=== PATIENT | male | born 1965 | race Caucasian/White ===

== ENCOUNTER 2023-05-21 18:48 | Inpatient (IN) | payer MEDICARE, SELFPAY ==
[2023-05-21] VITALS (18 sets, daily range): BP systolic 65–123; BP diastolic 40–84; BMI 43.0
[2023-05-21 14:43] LABS: Hematocrit 44.3 % (39.0-52.0); Hemoglobin 15.3 g/dL (13.0-18.0); Mean Corp Hgb Conc. 34.5 g/dL (33.0-37.0); Mean Corpuscular Hgb 30.3 pg (27.0-31.0); Mean Corpuscular Volume 87.7 fL (80.0-94.0); Mean Platelet Volume 10.1 fL (7.4-10.4); Platelet Count 283 10^3/uL (130-400); Red Blood Cell Count 5.05 10^6/uL (4.70-6.10); Red Cell Dist. Width 14.1 % (11.5-14.5); White Blood Cell Count 13.9 10^3/uL (4.8-10.8)
[2023-05-21 15:14] LABS: ALT (SGPT) 34 U/L (0-50); AST (SGOT) 30 U/L (17-59); Albumin 4.5 g/dl (3.5-5.0); Alkaline Phosphatase 69 U/L (38-126); Blood Urea Nitrogen 44 mg/dl (9-20); Calcium 9.9 mg/dl (8.4-10.2); Carbon Dioxide 17 mmol/L (22-30); Chloride 106 mmol/L (98-107); Glucose 128 mg/dl (70-99); Lipase 56 U/L (23-300); Potassium 4.8 mmol/L (3.5-5.1); Sodium 136 mmol/L (135-145); Total Bilirubin 1.4 mg/dl (0.2-1.3); Total Protein 7.4 g/dl (6.3-8.2); eGFR 11.14
[2023-05-21 15:20] LABS: Absolute Neutrophils -Man Diff 10.5 10^3/uL (1.4-6.5); Band Neutrophils 11 % (0-3); Lymphocytes 12 % (20-51); Monocytes 9 % (2-9); Segmented Neutrophils 65 % (42-75)
[2023-05-21 15:21] LABS: Atypical Lymphocytes 3 %; Normal RBC Morphology Yes; Platelets Checked Yes; Total Cells Counted 100
--- NOTE | 2023-05-21 15:57 | ED.GENMED ---
History of Present Illness
<Adrian Mcleod PA-C - Last Filed: 05/22/23 08:19>
General
Chief Complaint: Visual Problem
Source: patient and family
Time Seen by Provider: 05/21/23 15:48
Travel History
Have you had any contact with someone who has COVID-19?: No
Do you have any symptoms of coronavirus? Fever > 100 degrees, chills, cough, shortness of breath, sore throat, loss of taste or smell, muscle aches, or headache?: No
History of Present Illness
History of Present Illness:
58-year-old male with past medical history of hypertension, bipolar disorder and schizophrenia presenting to the emergency department with family after patient has had persistent nausea, vomiting and diarrhea that started around 2 days ago, notes
that symptoms actually seem to be a little bit improved today although is feeling generally weak, feels as if he has to think more prior to performing a task, feels intermittently confused. Patient also notes that when attempting to get up to go to
the bathroom he feels near syncopal but states never at had syncope or loss conscious. Patient denies any fevers, chills, rigors, urinary symptoms, known sick contacts, recent travel or recent antibiotics. Currently denying any abdominal pain as
well. No other concerns at this time
Past History
<Adrian Mcleod PA-C - Last Filed: 05/22/23 08:19>
Past History
ED Past Medical History: HTN and Psychiatric
ED Past Surgical History: Orthopedic (Bilateral knee replacement) and Other (Inguinal herniorrhaphy)
Social History
Tobacco: Former smoker
Alcohol: None
Drug: None
Personal:
Living: alone
Employment: Disabled
Family History
Family History: Other (Noncontributory)
Review of Systems
<Adrian Mcleod PA-C - Last Filed: 05/22/23 08:19>
Review of Systems
All Other Systems: ROS reviewed and negative except as documented in HPI and ROS
Phy Exam
<Adrian Mcleod PA-C - Last Filed: 05/22/23 08:19>
Physical Exam
Physical Exam:
GENERAL: Alert , in no apparent distress
EYE: clear conjunctiva b/l
HEAD: NCAT
ENT: o/p clr, mmm.
CARDIAC: Regular rate and rhythm .
LUNGS: Clear breath sounds bilaterally, mild tachypnea, no wheezes/rales/rhonchi
ABDOMEN: Soft, without focal tenderness, no r/g, no cvat
NEUROLOGICAL: Alert and oriented
SKIN: Warm and dry, skin intact.
MUSCULOSKELETAL: No edema, well perfused.
PSYCH: Normal and appropriate interaction.
Scores
<Adrian Mcleod PA-C - Last Filed: 05/22/23 08:19>
Heart Failure Risk
Heart Failure Risk Score: Not Applicable
Heart Score for Chest Pain Patients
STEMI patient?: Not applicable
Withdrawal Assessment of Alcohol
Withdrawal Assessment Completed?: Not applicable
Course
<Adrian Mcleod PA-C - Last Filed: 05/22/23 08:19>
Orders/Labs/Results
Orders:
Orders
05/21/23 Lunch
Clear Liquid
At Your Request: Full Participation
Does patient need a safe tray?: No
05/21/23 14:27
IV Insert/Care/Rem.- Treatment PRN
05/21/23 14:28
ECG [Electrocardiogram (*1)] Urgent
Reason for Study: Vertigo / Dizzy
EKG- Treatment ONCE
05/21/23 14:36
Complete Blood Count/With Diff Urgent
Comprehensive Metabolic Panel Urgent
Lipase Urgent
Manual Differential Urgent
05/21/23 15:48
0.9% Sodium Chloride 1000 ml [Nss] 1,000 ml IV BOLUS
05/21/23 15:49
CT Abd/pel Without Iv Or Oral Urgent
Comment:
Reason For Exam: vomiting, ROSE MARIE
Urinalysis Reflex To Culture Urgent
Date Specimen was Collected: 05/22/23
Time Specimen was Collected: 03:00
05/21/23 16:11
Lactic Acid Q4H
Comment: CANCEL 2nd LACTIC ACID IF 1st LACTIC ACID IS LESS THAN 2
Blood Culture Q30M
BETI Source: Blood/Venous
Specimen Description:
05/21/23 16:19
Blood Culture Q30M
BETI Source: Blood/Venous
Specimen Description:
05/21/23 17:45
Ondansetron Injectable [Zofran] 4 mg .ROUTE .[facility]
05/21/23 18:17
Admit/Transfer Patient As Directed
Co-Sign Provider:
Level of Care: Inpatient admission
Assign to:: Medical/Surgical
Physician / Group: Carolina pastranaists
Diagnosis: ROSE MARIE
Reason for Hospitalization: ROSE MARIE - IVF
Expected length of stay greater than two midnights?: Yes
ELOS- Estimated Length of Stay in days: 3
I certify the patient meets the requirements for IP care: Yes
05/21/23 18:18
Code Status As Directed
Resuscitation Status: Full Code
05/21/23 18:22
Urine Creatinine Routine
Date Specimen was Collected: 05/22/23
Time Specimen was Collected: 03:01
Urine Sodium Routine
Date Specimen was Collected: 05/22/23
Time Specimen was Collected: 03:01
05/21/23 19:21
Acetaminophen [Tylenol] 650 mg PO Q4HPRN PRN
Dextrose 50%-Water [Dextrose 50% Syringe] 12.5 grams IV [id number] PRN
Glucagon [GlucaGen] 1 mg IM PRN PRN
HydrALAZINE [Apresoline] 5 mg IV Q6HPRN PRN
Ondansetron Injectable [Zofran] 4 mg IV Q6HPRN PRN
Sterile Water For Inj [Sterile Water For Injection 1000 ml] 1,000 ml Sodium Bicarbonate 150 meq IV 100 mls/hr
Trihexyphenidyl [Artane] 5 mg PO BIDPRN PRN
05/21/23 19:21
Activity As Directed
Activity Level: As Tolerated
Bedside Glucose Monitoring As Directed
Frequency: AC&HS
Comment: Change to q6h if pt on TPN, tube feeding or not eating
Bladder Scan As Directed
Follow Bladder Retention/Intermittent Cath Algorithm?: Yes
PRN if no void in __ hours: 6
Frequency: Per Retention Algorithm
If Bladder Scan Result >: 400
then:: Straight cath
Pneumatic Compression Sleeves As Directed
Type: Knee high
Straight Cath As Directed
Frequency: Per Retention Algorithm
Additional Instructions: straight cath as needed per acute urinary retention algorithm for 24 hrs
Additional Instructions: for bladder scan greater than 400 mL
Vital Signs As Directed
Frequency: Per unit guidelines
DX Deep Vein Thrombosis Video Routine
05/21/23 19:59
STOOL [C difficile Antigen & Toxins] Routine
BETI Source: Feces/Stool
Specimen Description:
Date Specimen was Collected: 05/21/23
Time Specimen was Collected: 19:58
Stool Culture Routine
BETI Source: Feces/Stool
Specimen Description:
Date Specimen was Collected: 05/21/23
Time Specimen was Collected: 19:58
Stool For WBC Routine
BETI Source: Feces/Stool
Specimen Description:
Date Specimen was Collected: 05/21/23
Time Specimen was Collected: 19:58
05/21/23 20:00
Perphenazine [Trilafon] 16 mg PO BID
05/21/23 21:31
BMP [Basic Metabolic Panel] Routine
05/22/23 04:10
Basic Metabolic Panel IN AM
Complete Blood Count/No Diff IN AM
Glycohemoglobin (HgbA1c) IN AM
Magnesium IN AM
05/22/23 07:30
Insulin Aspart Corrective Low [Novolog Flexpen-Low Resistance] See Protocol SC AC
05/22/23 08:00
Ascorbic Acid [Vitamin C] 500 mg PO DAILY
Atorvastatin [Lipitor] 10 mg PO DAILY
HydrOXYZINE [Atarax] 25 mg PO DAILY
Multivitamin [Theragran] 1 tablet PO DAILY
05/23/23 06:00
Basic Metabolic Panel IN AM
Complete Blood Count/No Diff IN AM
05/24/23 06:00
Basic Metabolic Panel IN AM
Complete Blood Count/No Diff IN AM
05/25/23 06:00
Basic Metabolic Panel IN AM
Complete Blood Count/No Diff IN AM
05/25/23 08:00
Ergocalciferol [Drisdol (Vitamin D2)] 50,000 units PO TH
Abnormal Lab Results
05/21/23
14:36
WBC 13.9 H 10^3/uL
(4.8-10.8)
Abs Neuts (Manual) 10.5 H 10^3/uL
(1.4-6.5)
Band Neutrophils 11 H %
(0-3)
Lymphocytes (Manual) 12 L %
(20-51)
Carbon Dioxide 17 L mmol/L
(22-30)
BUN 44 H mg/dl
(9-20)
Creatinine 5.5 H* mg/dL
(0.7-1.3)
Glucose 128 H mg/dl
(70-99)
Total Bilirubin 1.4 H mg/dl
(0.2-1.3)
05/21/23 14:36
05/21/23 14:36
Vital Signs
Initial and Last Documented VS:
Initial Vital Signs
Temp Pulse Resp Pulse Ox
98 F 113 18 93
05/21/23 14:22 05/21/23 14:22 05/21/23 14:22 05/21/23 14:22
Last Documented Vital Signs
Temp Pulse Resp BP Pulse Ox
98.8 F 97 18 100/51 95
05/22/23 03:13 05/22/23 03:13 05/22/23 03:13 05/22/23 03:13 05/22/23 03:13
[employer]mw Sales Consultant consulted with Physician
[employer]mw Sales Consultant consulted with physician?: Yes
Name of Physician Consulted: Dax
<Madi Verduzco, DO - Last Filed: 05/21/23 16:51>
Orders/Labs/Results
Orders:
Orders
05/21/23 Lunch
Clear Liquid
At Your Request: Full Participation
Does patient need a safe tray?: No
05/21/23 14:27
IV Insert/Care/Rem.- Treatment PRN
05/21/23 14:28
ECG [Electrocardiogram (*1)] Urgent
Reason for Study: Vertigo / Dizzy
EKG- Treatment ONCE
05/21/23 14:36
Complete Blood Count/With Diff Urgent
Comprehensive Metabolic Panel Urgent
Lipase Urgent
Manual Differential Urgent
05/21/23 15:48
0.9% Sodium Chloride 1000 ml [Nss] 1,000 ml IV BOLUS
05/21/23 15:49
CT Abd/pel Without Iv Or Oral Urgent
Comment:
Reason For Exam: vomiting, ROSE MARIE
Urinalysis Reflex To Culture Urgent
Date Specimen was Collected: 05/22/23
Time Specimen was Collected: 03:00
05/21/23 16:11
Lactic Acid Q4H
Comment: CANCEL 2nd LACTIC ACID IF 1st LACTIC ACID IS LESS THAN 2
Blood Culture Q30M
BETI Source: Blood/Venous
Specimen Description:
05/21/23 16:19
Blood Culture Q30M
BETI Source: Blood/Venous
Specimen Description:
05/21/23 17:45
Ondansetron Injectable [Zofran] 4 mg .ROUTE .[facility]
05/21/23 18:17
Admit/Transfer Patient As Directed
Co-Sign Provider:
Level of Care: Inpatient admission
Assign to:: Medical/Surgical
Physician / Group: Carolina rojas
Diagnosis: ROSE MARIE
Reason for Hospitalization: ROSE MARIE - IVF
Expected length of stay greater than two midnights?: Yes
ELOS- Estimated Length of Stay in days: 3
I certify the patient meets the requirements for IP care: Yes
05/21/23 18:18
Code Status As Directed
Resuscitation Status: Full Code
05/21/23 18:22
Urine Creatinine Routine
Date Specimen was Collected: 05/22/23
Time Specimen was Collected: 03:01
Urine Sodium Routine
Date Specimen was Collected: 05/22/23
Time Specimen was Collected: 03:01
05/21/23 19:21
Acetaminophen [Tylenol] 650 mg PO Q4HPRN PRN
Dextrose 50%-Water [Dextrose 50% Syringe] 12.5 grams IV [id number] PRN
Glucagon [GlucaGen] 1 mg IM PRN PRN
HydrALAZINE [Apresoline] 5 mg IV Q6HPRN PRN
Ondansetron Injectable [Zofran] 4 mg IV Q6HPRN PRN
Sterile Water For Inj [Sterile Water For Injection 1000 ml] 1,000 ml Sodium Bicarbonate 150 meq IV 100 mls/hr
Trihexyphenidyl [Artane] 5 mg PO BIDPRN PRN
05/21/23 19:21
Activity As Directed
Activity Level: As Tolerated
Bedside Glucose Monitoring As Directed
Frequency: AC&HS
Comment: Change to q6h if pt on TPN, tube feeding or not eating
Bladder Scan As Directed
Follow Bladder Retention/Intermittent Cath Algorithm?: Yes
PRN if no void in __ hours: 6
Frequency: Per Retention Algorithm
If Bladder Scan Result >: 400
then:: Straight cath
Pneumatic Compression Sleeves As Directed
Type: Knee high
Straight Cath As Directed
Frequency: Per Retention Algorithm
Additional Instructions: straight cath as needed per acute urinary retention algorithm for 24 hrs
Additional Instructions: for bladder scan greater than 400 mL
Vital Signs As Directed
Frequency: Per unit guidelines
DX Deep Vein Thrombosis Video Routine
05/21/23 19:59
STOOL [C difficile Antigen & Toxins] Routine
BETI Source: Feces/Stool
Specimen Description:
Date Specimen was Collected: 05/21/23
Time Specimen was Collected: 19:58
Stool Culture Routine
BETI Source: Feces/Stool
Specimen Description:
Date Specimen was Collected: 05/21/23
Time Specimen was Collected: 19:58
Stool For WBC Routine
BETI Source: Feces/Stool
Specimen Description:
Date Specimen was Collected: 05/21/23
Time Specimen was Collected: 19:58
05/21/23 20:00
Perphenazine [Trilafon] 16 mg PO BID
05/21/23 21:31
BMP [Basic Metabolic Panel] Routine
05/22/23 04:10
Basic Metabolic Panel IN AM
Complete Blood Count/No Diff IN AM
Glycohemoglobin (HgbA1c) IN AM
Magnesium IN AM
05/22/23 07:30
Insulin Aspart Corrective Low [Novolog Flexpen-Low Resistance] See Protocol SC AC
05/22/23 08:00
Ascorbic Acid [Vitamin C] 500 mg PO DAILY
Atorvastatin [Lipitor] 10 mg PO DAILY
HydrOXYZINE [Atarax] 25 mg PO DAILY
Multivitamin [Theragran] 1 tablet PO DAILY
05/23/23 06:00
Basic Metabolic Panel IN AM
Complete Blood Count/No Diff IN AM
05/24/23 06:00
Basic Metabolic Panel IN AM
Complete Blood Count/No Diff IN AM
05/25/23 06:00
Basic Metabolic Panel IN AM
Complete Blood Count/No Diff IN AM
05/25/23 08:00
Ergocalciferol [Drisdol (Vitamin D2)] 50,000 units PO TH
Abnormal Lab Results
05/21/23
14:36
WBC 13.9 H 10^3/uL
(4.8-10.8)
Abs Neuts (Manual) 10.5 H 10^3/uL
(1.4-6.5)
Band Neutrophils 11 H %
(0-3)
Lymphocytes (Manual) 12 L %
(20-51)
Carbon Dioxide 17 L mmol/L
(22-30)
BUN 44 H mg/dl
(9-20)
Creatinine 5.5 H* mg/dL
(0.7-1.3)
Glucose 128 H mg/dl
(70-99)
Total Bilirubin 1.4 H mg/dl
(0.2-1.3)
05/21/23 14:36
05/21/23 14:36
Vital Signs
Initial and Last Documented VS:
Initial Vital Signs
Temp Pulse Resp Pulse Ox
98 F 113 18 93
05/21/23 14:22 05/21/23 14:22 05/21/23 14:22 05/21/23 14:22
Last Documented Vital Signs
Temp Pulse Resp BP Pulse Ox
98.8 F 97 18 100/51 95
05/22/23 03:13 05/22/23 03:13 05/22/23 03:13 05/22/23 03:13 05/22/23 03:13
<Adrian Mcleod PA-C - Last Filed: 05/22/23 08:19>
MDM/Problems Addressed
Differential Diagnosis Includes:
Gastroenteritis, colitis, electrolyte disturbance, acute kidney injury
MDM/Problems Addressed:
58-year-old male present emergency department for evaluation of nausea vomiting and diarrhea. Symptoms are noted to be a little bit improved today. Lab work was initiated in triage which reveals a leukocytosis, bandemia, uremia with a new
creatinine of greater than 5. Patient's labs show that he had a normal creatinine in August 2022. I suspect this is likely all prerenal from dehydration. Patient is on daily lisinopril which will likely need to be stopped. Patient will require
admission. I added on a CT scan of the abdomen pelvis without any contrast. Lactate and blood cultures ordered as well. Will hold on antibiotics at this time. Patient is agreeable with this plan. Will notify nephrology.
<Adrian Mcleod PA-C - Last Filed: 05/22/23 08:19>
*Radiology
Radiology exam reviewed: radiology read reviewed
*Pulse Oximetry
Patient hypoxic: no
*EKG
Interpreted by ED Provider?: Yes
Comparison EKG: no changes
Heart Rate: 104
Rate: tachycardiac
Rhythm: sinus
[place]: normal axis
Ischemia: no ischemia
*Race Car Driver Interpretation
Rate: tachycardiac
Rhythm: sinus
*Critical Care Note
Total Time (30-74mins, 75-104mins- exclusive of procedures): Not Applicable
Data Reviewed
Review of Other/Old Records Reveals: Labs
<Adrian Mcleod PA-C - Last Filed: 05/22/23 08:19>
Patient Management
Discussion with other providers: Hospitalist
Escalation/DeEscalation of care consider admission/obs:
Patient has significant uremia. Hospitalist team is aware. Nephrology to be consulted. Patient's initial hypotension is significantly improving following fluid boluses.
ED Attending Note
<Adrian Mcleod PA-C - Last Filed: 05/22/23 08:19>
-
Portions of this chart may have been created with voice recognition software.� Occasional wrong word or��sound alike� substitutions may have occurred due to the inherent limitations of voice recognition software.
<Madi Verduzco DO - Last Filed: 05/21/23 16:51>
ED Attending Note
Patient seen and examined by attending physician: Yes
ED Attending Note:
I have reviewed and agree with history treatment plan by Lizandro Mcleod. Is a 58-year-old male with nausea vomiting diarrhea, acute renal failure, hypokalemia. Blood pressure improved with IV normal saline. CT abdomen pelvis pending. Will admit to
hospitalist.
Discharge Plan
Departure
Patient Disposition: Admit
Date of Disposition: 05/21/23
Time of Disposition: 17:01
Presentation/result/management discussed w/ accepting MD/DO: Hospitalist
Discharge Problem:
Acute renal failure, Dehydration, Near syncope
Interventions
Interventions:
*Risk Screen - Suicide Last Done: 05/21/23 14:22
*General Assessment Last Done: 05/21/23 14:22
*Neglect/Abuse Screening Last Done: 05/21/23 14:22
ED- Fall Risk Assessment Last Done: 05/21/23 17:35
*ED COVID-19 Vaccine History Last Done: 05/21/23 16:02
*Nursing Disposition Last Done: 05/21/23 21:50
ED- Neurological Assessment Last Done: 05/21/23 19:10
ED-EENT Assessment Last Done: 05/21/23 16:05
ED Swallowing Screen Last Done: 05/21/23 16:05
Discharge Date and Time
Discharge Date/Time: 05/21/23 21:50
--- NOTE | 2023-05-21 16:16 | EDRN ---
Pt was noted to be hypotensive, states he has all over body pain that is starting now. MD called to bedside, NS infusing per order.
[2023-05-21] MEDS: NSS 1000 IV (16:17)
[2023-05-21 16:31] LABS: Lactic Acid 1.7 mmol/L (0.7-2.0)
--- NOTE | 2023-05-21 17:57 | HPS.HSE ---
Family Physician
-
Family Physician: Preeti Markham
Chief Complaint
-
abd pain/n/v
History of Present Illness
58 y/o M hx of HTN, DM, bipolar, schizophrenia presents to ER for 2 day history of GI upset. Patient reports 2 days ago he developed nausea, and vomiting. Also developed diarrhea, 4 episodes on day and 2, 1 today. no abd pain. no fever/chills. no
sick contacts or spoiled food was eaten. No chest pain or SOB. no UTI symptoms although he thinks he had some blood in urine.
He feels a bit better today but reports feeling a bit foggy with tasks and today while attempting to get out of bed, with near syncope.
in ER, CT showed fluid attenuation in colon suggesting diarrheal illness. also with profound ROSE MARIE - IVF started. Admitted.
Medical History
Past Medical History
Past Medical History: Reports Other (HTN, DM, bipolar, schizophrenia )
Past Surgical History: Reports Orthopedic (bilateral knee replacements) and Other (R inguinal hernia repair)
Social History
Tobacco: Former Smoker
Alcohol: None
Drug: None
Personal:
Living: Alone
Employment: Disabled
Family History
Family History: Not pertinent
Allergies / Home Medications
Allergies reflects when Allergies were last updated in [employer] [facility].
Home Medications with original date entered in [employer] [facility]
Allergy/Medication List:
Allergies
Allergy/AdvReac Type Severity Reaction Status Date / Time
No Known Allergies Allergy Verified 05/21/23 14:22
Home Medications
ascorbic acid (vitamin C) 500 mg tablet (Vitamin C) 500 mg PO DAILY Supplement 08/31/22
atorvastatin 10 mg tablet 10 mg PO DAILY High Cholesterol 08/31/22
ergocalciferol (vitamin D2) 1,250 mcg (50,000 unit) capsule 1,250 mcg PO TH Supplement 08/31/22
hydroxyzine pamoate 25 mg capsule 25 mg PO DAILY anxiety 08/31/22
metformin 500 mg tablet 500 mg PO BID@0800,1700 Diabetes 08/31/22
multivitamin 1 tab PO DAILY Supplement 08/31/22
perphenazine 8 mg tablet 16 mg PO BID distress 08/31/22
semaglutide 0.25 mg or 0.5 mg (2 mg/3 mL) subcutaneous pen injector (Ozempic) 0.25 mg SC FR Diabetes 08/31/22
trihexyphenidyl 5 mg tablet 5 mg PO BIDPRN PRN restlessness 08/31/22
lisinopril 30 mg tablet 30 mg PO DAILY 05/21/23
Review of Systems
-
A 12 point ROS was completed and negative except as noted: Yes
Physical Exam
Vital Signs
Vital Signs
Temp Pulse Resp BP Pulse Ox
98 F 112 25 123/80 97
05/21/23 14:22 05/21/23 17:45 05/21/23 17:45 05/21/23 17:45 05/21/23 17:30
Physical Exam
General: Well Developed, Well Nourished, No Apparent Distress and Morbidly Obese
HEENT: NormoCephalic and Anicteric; No Moist mucous membranes (dry)
Respiratory: Clear and Clear to Percussion; No Wheezes, Rales or Rhonchi
Cardiac: S1/S2 and Regular Rhythm
GI: Soft, Non Tender and Non Distended
Neuro: AO x 3
Hematologic/Lymphatic: No Lymphadenopathy
Psych: Calm
Laboratory Results
-
05/21/23 14:36
05/21/23 14:36
Laboratory Results
Lactic Acid 1.7 mmol/L (0.7-2.0) 05/21/23 16:11
Total Bilirubin 1.4 mg/dl (0.2-1.3) H 05/21/23 14:36
AST 30 U/L (17-59) 05/21/23 14:36
ALT 34 U/L (0-50) 05/21/23 14:36
Alkaline Phosphatase 69 U/L (38-126) 05/21/23 14:36
Lipase 56 U/L (23-300) 05/21/23 14:36
Data Reviewed
-
Lab Data: Labs Reviewed by me and Discussed with Patient
Impression/Plan
-
Assessment:
Acute diarrheal illness with nausea/vomiting
- likely viral, as patients diarrhea is less frequent, and he is hungry; will start clears
- obtain stool studies
- no evidence of obstruction on CT
ROSE MARIE, from GI losses/dehydration
- check Urine sodium/Urine creat
- bladder scans
- hold nephrotoxins
- continue IVF/Bicarbonate; repeat labs this evening
Self-reported hematuria
- CT negative
- await UA
Essential HTN
- hold WILDA with ROSE MRAIE
- prn Hydralazine
type 2 DM
- hold MFM with ROSE MARIE
- SSI and check A1c
- of note; patient is not on Ozempic despite it being listed in home list.
Bipolar d/o
Schizophrenia
- continue Hydroxyzine
- continue perphenazine
- continue prn trihexyphenidyl
DVT ppx: SCDs until hematuria clarified
Code: Full
--- NOTE | 2023-05-21 19:27 | EDRN ---
called pharmacy for 2000 medication and IVF with [facility]
[2023-05-21] MEDS: SODIUM BICARBONATE 1150 MEQ IV (20:14)
[2023-05-21 21:51] LABS: Blood Urea Nitrogen 45 mg/dl (9-20); Calcium 8.7 mg/dl (8.4-10.2); Carbon Dioxide 16 mmol/L (22-30); Chloride 109 mmol/L (98-107); Estimated Creatinine Clearance 23 ml/min; Glucose 118 mg/dl (70-99); Sodium 133 mmol/L (135-145); eGFR 13.45
[2023-05-21] MEDS: TRILAFON 16 MG PO (22:20)
[2023-05-22 03:13] VITALS: BP 100/51
[2023-05-22 03:34] LABS: Urine Albumin Negative (Neg - Trace); Urine Bilirubin 1+ (Negative); Urine Character Clear (Clear); Urine Color Yellow; Urine Glucose Negative (Negative); Urine Ketone Negative (Negative); Urine Leukocyte Negative (Negative); Urine Nitrite Negative (Negative); Urine Occult Blood Negative (Negative); Urine Specific Gravity 1.025 (<1.030); Urine Urobilinogen Negative (Neg - 1+)
[2023-05-22 03:39] LABS: Urine Sodium 46 mmol/L (30-90)
[2023-05-22 05:07] LABS: Hematocrit 37.7 % (39.0-52.0); Mean Corp Hgb Conc. 34.5 g/dL (33.0-37.0); Mean Corpuscular Volume 87.1 fL (80.0-94.0); Mean Platelet Volume 10.3 fL (7.4-10.4); Platelet Count 232 10^3/uL (130-400); Red Blood Cell Count 4.33 10^6/uL (4.70-6.10); Red Cell Dist. Width 14.1 % (11.5-14.5); White Blood Cell Count 10.7 10^3/uL (4.8-10.8)
[2023-05-22 05:43] LABS: Blood Urea Nitrogen 43 mg/dl (9-20); Calcium 8.9 mg/dl (8.4-10.2); Carbon Dioxide 17 mmol/L (22-30); Chloride 107 mmol/L (98-107); Estimated Creatinine Clearance 35 ml/min; Glucose 109 mg/dl (70-99); Magnesium 1.8 mg/dl (1.6-2.3); Potassium 4.1 mmol/L (3.5-5.1); Sodium 133 mmol/L (135-145); eGFR 23.06
[2023-05-22 05:46] VITALS: BMI 43.0
[2023-05-22 07:20] VITALS: BP 121/70
[2023-05-22] MEDS: SODIUM BICARBONATE 1150 MEQ IV (07:30)
--- NOTE | 2023-05-22 08:21 | W.PN.HOSP.TC ---
Today's Communication/Plan
-
check for Norovirus
adjust IVF
clears
await stool studies
Assessment / Plan
Assessment / Plan
Acute diarrheal illness with nausea/vomiting
- likely viral, as patients diarrhea is less frequent, and he is hungry; tolerating clears, will plan to advance diet as diarrhea slows
- obtain stool studies - pending, will also check for Noro vir 13.9-->10.7kus
WBC 13.9-->10.7k
- no evidence of obstruction on CT: Fluid attenuation throughout the colon suggesting a diarrheal illness. Colonic diverticulosis, without evidence for acute diverticulitis. No bowel wall thickening, obstruction, or inflammation. Normal appendix.
No extraluminal free air, fluid collection, or ascites.
ROSE MARIE, from GI losses/dehydration
- BUN/Creat 44/5.5-->45/4.7-->43/3.0
- bladder scans
- hold nephrotoxins
- continue IVF/Bicarbonate; CO2 17-->16-->17, will change to NS when current liter completed
Self-reported hematuria
- CT negative
- no blood in UA
Essential HTN
87/51-->100/51
- hold WILDA with ROSE MARIE
- prn Hydralazine
type 2 DM
- hold MFM with ROSE MARIE
- SSI and check A1c - pending
- of note; patient is not on Ozempic despite it being listed in home list.
Bipolar d/o
Schizophrenia
- continue Hydroxyzine
- continue perphenazine
- continue prn trihexyphenidyl
DVT ppx: SCDs until hematuria clarified
Code: Full
Anticipated Discharge: > 48 hours
Subjective/Interval History
-
Date of Service: May 22, 2023
Awake, alert, diarrhea slightly less loose this morning, but already had 2 episodes this morning
Objective Data
-
Labs:
Laboratory Results
05/21/23 05/22/23
21:31 04:10
WBC 10.7
Hgb 13.0
Hct 37.7 L
Plt Count 232
Sodium 133 L 133 L
Potassium 4.1
Chloride 109 H 107
Carbon Dioxide 16 L 17 L
BUN 45 H 43 H
Creatinine 4.7 H* 3.0 H
Glucose 118 H 109 H
Calcium 8.7 8.9
Vital Signs:
Vital Signs
Temp Pulse Resp BP Pulse Ox
98.8 F 97 18 100/51 95
05/22/23 03:13 05/22/23 03:13 05/22/23 03:13 05/22/23 03:13 05/22/23 03:13
I&O
05/21/23 05/22/23 05/23/23
06:59 06:59 06:59
Intake Total 380 / 380
Output Total 300 / 300
Balance 80 / 80
Review of Systems
-
History Source: Patient and Coordinated Provider (pt examined with HARLEEN Hicks in room)
Constitutional: Denies Fever
EENT: Reports No Symptoms Reported
Respiratory: Reports No Symptoms
Cardiac: Reports No Symptoms
Abdomen/GI: Reports Diarrhea; Denies Nausea, Vomiting, Bloody Stools or Black Stools
Genitourinary: Reports No Symptoms
Musculoskeletal: Reports No Symptoms
Neuro: Reports No Symptoms
Physical Exam
-
General: Well Developed, Well Nourished and No Apparent Distress
HEENT: Normocephalic, Atraumatic and Moist Mucous Membranes
Respiratory: Clear to Auscultation; Negative Wheezes, Rales or Rhonchi
Cardiac: Regular Rhythm and S1/S2
GI: Soft, Nontender, Nondistended, Normal Bowel Sounds and Other (large girth)
Musculoskeletal: No Clubbing, No Cyanosis and No Edema
Neuro: Awake, Alert and Oriented
[2023-05-22 08:31] LABS: Glucose - Point of Care 124 mg/dl (70-99)
[2023-05-22 08:46] LABS: Glycohemoglobin (HgbA1c) 7.3 % (4.0-5.6)
[2023-05-22] MEDS: ATARAX 25 MG PO (08:57)
[2023-05-22] MEDS: THERAGRAN 1 TABLET PO (08:57)
[2023-05-22] MEDS: LIPITOR 10 MG PO (08:57)
[2023-05-22] MEDS: TRILAFON 16 MG PO ×2 (08:57→21:00)
[2023-05-22] MEDS: VITAMIN C 500 MG PO (08:57)
--- NOTE | 2023-05-22 10:44 | CM ---
Reviewed the chart notes and spoke with the patient at the beside. The patient resides alone in a second floor apartment with his two cats. There is one step to enter and a flight of stairs to apartment. The patient's [id number] is currently
caring for the cats while the patient is in the hospital. The patient reports no DME/VN/SNF in the past. The patient reports being current with [facility]. The patient confirmed his pharmacy of choice is the [facility]. continues to be available to patient/family and is monitoring medical plan for needs at discharge.
Plan: Discharge to home when medically stable. No additional needs identified at this time.
[2023-05-22 11:00] VITALS: BP 142/80
[2023-05-22 11:43] LABS: Glucose - Point of Care 103 mg/dl (70-99)
--- NOTE | 2023-05-22 13:02 | PTCARENOTE ---
per morning conversation with Dr. Irizarry. Verbal order for Low residue diet to start when patient has tolerated clears. Patient tolerated breakfast and lunch on clear liquid diet. Verbal order placed for low residue diet to start at dinner 1500
(next meal). Dr. Irizarry notified [id number] via tiger text.
[2023-05-22 15:00] VITALS: BP 137/71
[2023-05-22] MEDS: TYLENOL 650 MG PO (15:30)
[2023-05-22 16:50] LABS: Glucose - Point of Care 106 mg/dl (70-99)
[2023-05-22 19:20] VITALS: BP 148/84
[2023-05-22] MEDS: KCL 1005 MEQ IV (21:07)
[2023-05-22 21:50] LABS: Glucose - Point of Care 107 mg/dl (70-99)
[2023-05-22 23:52] VITALS: BP 137/85
[2023-05-23 03:09] VITALS: BP 127/70
[2023-05-23 06:00] VITALS: BMI 42.9
[2023-05-23] MEDS: KCL 1005 MEQ IV (06:00)
[2023-05-23 06:43] LABS: % Basophils 0.3 % (0-2); % Eosinophils 5.1 % (0-6); % Immature Granulocytes 0.3 % (0-0.5); % Lymphocytes 23.7 % (20.5-51.1); % Monocytes 9.5 % (1.7-9.3); % Neutrophils 61.1 % (42.2-75.2); Absolute Eosinophils 0.5 10^3/uL (0-0.7); Absolute Lymphocytes 2.3 10^3/uL (1.2-3.4); Absolute Monocytes 0.9 10^3/uL (0.1-0.6); Absolute Neutrophils 5.8 10^3/uL (1.4-6.5); Hematocrit 37.3 % (39.0-52.0); Hemoglobin 12.6 g/dL (13.0-18.0); Mean Corp Hgb Conc. 33.8 g/dL (33.0-37.0); Mean Corpuscular Volume 88.8 fL (80.0-94.0); Mean Platelet Volume 10.5 fL (7.4-10.4); Nucleated Red Blood Cells % 0 % (-); Platelet Count 212 10^3/uL (130-400); Red Cell Dist. Width 13.5 % (11.5-14.5); White Blood Cell Count 9.5 10^3/uL (4.8-10.8)
[2023-05-23 07:09] LABS: Blood Urea Nitrogen 15 mg/dl (9-20); Calcium 8.7 mg/dl (8.4-10.2); Carbon Dioxide 24 mmol/L (22-30); Chloride 105 mmol/L (98-107); Estimated Creatinine Clearance 117 ml/min; Glucose 97 mg/dl (70-99); Potassium 3.8 mmol/L (3.5-5.1); Sodium 135 mmol/L (135-145); eGFR > 60.00
[2023-05-23 07:39] VITALS: BP 144/82
[2023-05-23 07:44] LABS: Glucose - Point of Care 112 mg/dl (70-99)
[2023-05-23] MEDS: VITAMIN C 500 MG PO (08:47)
[2023-05-23] MEDS: TRILAFON 16 MG PO ×2 (08:47→20:34)
[2023-05-23] MEDS: LIPITOR 10 MG PO (08:47)
[2023-05-23] MEDS: THERAGRAN 1 TABLET PO (08:47)
[2023-05-23] MEDS: ATARAX 25 MG PO (08:47)
--- NOTE | 2023-05-23 09:00 | PTCARENOTE ---
Patient's IVF rate decreased to 40 ml/hr at [address] Irizarry verbal order.
--- NOTE | 2023-05-23 10:16 | W.PN.HOSP.TC ---
Today's Communication/Plan
-
Pt has dramatically improved over past 24-48 hrs. will slow IVF, resume Metformin, recheck labs in AM with possible dc tomorrow if continues to do well.
Assessment / Plan
Assessment / Plan
Acute diarrheal illness with nausea/vomiting
- likely viral, though pt believes related to consumption of an organic celery, as patients diarrhea is less frequent, and he is hungry; tolerating LRD, will continue this.
Norovirus neg
C. Diff neg
Stool for WBC none
enteric pathogens - neg to date
WBC 13.9-->10.7-->9.5k
- no evidence of obstruction on CT: Fluid attenuation throughout the colon suggesting a diarrheal illness. Colonic diverticulosis, without evidence for acute diverticulitis. No bowel wall thickening, obstruction, or inflammation. Normal appendix.
No extraluminal free air, fluid collection, or ascites.
ROSE MARIE, from GI losses/dehydration
resolved
- BUN/Creat 44/5.5-->45/4.7-->43/3.0-->15/0.9
- hold nephrotoxins
- continue IVF, but slow rate to 40 cc/hr
Self-reported hematuria
- CT negative
- no blood in UA
Essential HTN
87/51-->100/51-->144/82
- hold WILDA with ROSE MARIE
- prn Hydralazine
type 2 DM
- resume MFM with resolution of ROSE MARIE
- SSI and check A1c -7.3%
- of note; patient is not on Ozempic despite it being listed in home list.
Bipolar d/o
Schizophrenia
- continue Hydroxyzine
- continue perphenazine
- continue prn trihexyphenidyl
DVT ppx: SCDs until hematuria clarified
Code: Full
Anticipated Discharge: Within 24 hours
Subjective/Interval History
-
Date of Service: May 23, 2023
Awake, alert, still with diarrhea, but has slowed
Objective Data
-
Labs:
Laboratory Results
05/23/23
05:16
WBC 9.5
Hgb 12.6 L
Hct 37.3 L
Plt Count 212
Sodium 135
Potassium 3.8
Chloride 105
Carbon Dioxide 24
BUN 15
Creatinine 0.9
Glucose 97
Calcium 8.7
Vital Signs:
Vital Signs
Temp Pulse Resp BP Pulse Ox
98.1 F 93 20 144/82 96
05/23/23 07:39 05/23/23 07:39 05/23/23 07:39 05/23/23 07:39 05/23/23 07:39
I&O
05/22/23 05/23/23 05/24/23
06:59 06:59 06:59
Intake Total 380 / 380 1960 / 1960
Output Total 300 / 300 1700 / 1700
Balance 80 / 80 260 / 260
Review of Systems
-
History Source: Patient and Coordinated Provider (reviewed with HARLEEN Mac)
Constitutional: Denies Fever
EENT: Reports No Symptoms Reported
Respiratory: Reports No Symptoms
Cardiac: Reports No Symptoms
Abdomen/GI: Reports Diarrhea (appears to be resolving); Denies Nausea, Vomiting, Bloody Stools or Black Stools
Genitourinary: Reports No Symptoms
Musculoskeletal: Reports No Symptoms
Neuro: Reports No Symptoms
Physical Exam
-
General: Well Developed, Well Nourished, No Apparent Distress and Obese
HEENT: Normocephalic, Atraumatic and Moist Mucous Membranes
Respiratory: Clear to Auscultation; Negative Wheezes, Rales or Rhonchi
Cardiac: Regular Rhythm and S1/S2
GI: Soft, Nontender, Nondistended, Normal Bowel Sounds and Other (large girth)
Musculoskeletal: No Clubbing, No Cyanosis and No Edema
Neuro: Awake, Alert and Oriented
Psych: Calm
[2023-05-23 12:45] LABS: Glucose - Point of Care 125 mg/dl (70-99)
--- NOTE | 2023-05-23 14:21 | PTCARENOTE ---
Patient is out of bed with a walker, patient's gait is steady. Patient feels better, but still having a small amount of loose stool. Call mcleod in reach brother at bedside.
[2023-05-23 16:00] VITALS: BP 139/80
[2023-05-23 16:29] LABS: Glucose - Point of Care 76 mg/dl (70-99)
[2023-05-23 21:44] LABS: Glucose - Point of Care 106 mg/dl (70-99)
[2023-05-23 23:12] VITALS: BP 130/77
[2023-05-24] MEDS: KCL 1005 MEQ IV (03:37)
[2023-05-24 04:54] LABS: Hematocrit 35.8 % (39.0-52.0); Hemoglobin 12.6 g/dL (13.0-18.0); Mean Corp Hgb Conc. 35.2 g/dL (33.0-37.0); Mean Corpuscular Hgb 29.9 pg (27.0-31.0); Mean Corpuscular Volume 84.8 fL (80.0-94.0); Mean Platelet Volume 10.3 fL (7.4-10.4); Platelet Count 224 10^3/uL (130-400); Red Blood Cell Count 4.22 10^6/uL (4.70-6.10); Red Cell Dist. Width 13.2 % (11.5-14.5); White Blood Cell Count 8.9 10^3/uL (4.8-10.8)
[2023-05-24 05:25] LABS: Blood Urea Nitrogen 12 mg/dl (9-20); Calcium 9.4 mg/dl (8.4-10.2); Carbon Dioxide 24 mmol/L (22-30); Chloride 104 mmol/L (98-107); Estimated Creatinine Clearance > 125 ml/min; Glucose 104 mg/dl (70-99); Potassium 3.8 mmol/L (3.5-5.1); Sodium 138 mmol/L (135-145); eGFR > 60.00
[2023-05-24 06:00] VITALS: BMI 43.0
[2023-05-24 07:25] VITALS: BP 184/111
[2023-05-24 07:31] LABS: Glucose - Point of Care 111 mg/dl (70-99)
--- NOTE | 2023-05-24 08:35 | CM ---
Reviewed the chart notes and spoke with the patient at the bedside. IMM signed and placed on the chart. The patient anticipates being discharged to home with no needs identified. The patient will require a Lyft transport as family are out of the
area today. CM continues to be available to patient/family and is monitoring medical plan for needs at discharge.
Plan: Discharge to home today.
[2023-05-24 08:52] VITALS: BP 167/97
[2023-05-24] MEDS: TRILAFON 16 MG PO (08:53)
[2023-05-24] MEDS: VITAMIN C 500 MG PO (08:53)
[2023-05-24] MEDS: LIPITOR 10 MG PO (08:53)
[2023-05-24] MEDS: ATARAX 25 MG PO (08:53)
[2023-05-24] MEDS: THERAGRAN 1 TABLET PO (08:53)
[2023-05-24] MEDS: APRESOLINE 5 MG IV (08:53)
--- NOTE | 2023-05-24 10:36 | W.PN.HOSP.TC ---
Today's Communication/Plan
-
dc to home
Assessment / Plan
Assessment / Plan
Acute diarrheal illness with nausea/vomiting
- likely viral, though pt believes related to consumption of an organic celery, as patients diarrhea is less frequent, and he is hungry; tolerating LRD, will continue this.
Called [facility] this morning and confirmed no change in stool results
Norovirus neg
C. Diff neg
Stool for WBC none
enteric pathogens - neg to date
WBC 13.9-->10.7-->9.5-->8.9k
- no evidence of obstruction on CT: Fluid attenuation throughout the colon suggesting a diarrheal illness. Colonic diverticulosis, without evidence for acute diverticulitis. No bowel wall thickening, obstruction, or inflammation. Normal appendix.
No extraluminal free air, fluid collection, or ascites.
ROSE MARIE, from GI losses/dehydration
resolved
- BUN/Creat 44/5.5-->45/4.7-->43/3.0-->15/0.9-->12/0.8
- hold nephrotoxins
- stop IVF
Self-reported hematuria
- CT negative
- no blood in UA, should follow up with PCP regarding this, ?urology referral
Essential HTN
87/51-->100/51-->144/82-->167/97
- resume preadmit BP Rx
- prn Hydralazine
type 2 DM
- resume MFM with resolution of ROSE MARIE
- SSI and check A1c -7.3%
- of note; patient had decided to stop the Ozempic due to 'strange side effects'
Bipolar d/o
Schizophrenia
- continue Hydroxyzine
- continue perphenazine
- continue prn trihexyphenidyl
DVT ppx: SCDs
Code: Full
dc now
see dictated note\\
More than 30 minutes spent in discharge including
Final examination of the patient
Summarizing hospital stay
Instructions for continuing care to all relevant caregivers
Preparation of discharge records, prescriptions, and referral forms
Total time spent (in minutes): 45
Anticipated Discharge: Today
Subjective/Interval History
-
Date of Service: May 24, 2023
Had a formed BM today, tolerating diet and generally feels well
Objective Data
-
Labs:
Laboratory Results
05/24/23
04:23
WBC 8.9
Hgb 12.6 L
Hct 35.8 L
Plt Count 224
Sodium 138
Potassium 3.8
Chloride 104
Carbon Dioxide 24
BUN 12
Creatinine 0.8
Glucose 104 H
Calcium 9.4
Vital Signs:
Vital Signs
Temp Pulse Resp BP Pulse Ox
98 F 91 17 167/97 98
05/24/23 07:25 05/24/23 08:53 05/24/23 07:25 05/24/23 08:53 05/24/23 07:25
I&O
05/23/23 05/24/23 05/25/23
06:59 06:59 06:59
Intake Total 1959 / 1959 2240 / 2240
Output Total 1700 / 1700 3050 / 3050
Balance 260 / 260 -810 / -810
Review of Systems
-
History Source: Patient and Coordinated Provider (reviewed with HARLEEN Mac)
Constitutional: Denies Fever
EENT: Reports No Symptoms Reported
Respiratory: Reports No Symptoms
Cardiac: Reports No Symptoms
Abdomen/GI: Reports Diarrhea (appears to be resolving); Denies Nausea, Vomiting, Bloody Stools or Black Stools
Genitourinary: Reports No Symptoms
Musculoskeletal: Reports No Symptoms
Neuro: Reports No Symptoms
Physical Exam
-
General: Well Developed, Well Nourished, No Apparent Distress and Obese
HEENT: Normocephalic, Atraumatic and Moist Mucous Membranes
Respiratory: Clear to Auscultation; Negative Wheezes, Rales or Rhonchi
Cardiac: Regular Rhythm and S1/S2
GI: Soft, Nontender, Nondistended, Normal Bowel Sounds and Other (large girth)
Musculoskeletal: No Clubbing, No Cyanosis and No Edema
Neuro: Awake, Alert and Oriented
Psych: Calm
--- NOTE | 2023-05-24 10:56 | W.DS.TRANS ---
DC Summary - Hog Counter
-
Discharge Instructions:
Discharge Diagnosis/Procedures Viral Gastroenteritis
Diet Low Residue
Additional Diets easy to digest
Activity As tolerated
Driving Restrictions As prior to admission
Bathing Restrictions None
Blood Work CBC, CMP in 1-2 weeks
Others Tests stool studies are negative to date, but not yet
finalized
Instructions:
Stand-Alone Forms:
Changes to Home Medications: No
Discharge Medications:
DC Medications w/original date entered in [employer]
ascorbic acid (vitamin C) 500 mg tablet (Vitamin C) 500 mg PO DAILY Supplement 08/31/22
atorvastatin 10 mg tablet 10 mg PO DAILY High Cholesterol 08/31/22
ergocalciferol (vitamin D2) 1,250 mcg (50,000 unit) capsule 1,250 mcg PO TH Supplement 08/31/22
hydroxyzine pamoate 25 mg capsule 25 mg PO DAILY anxiety 08/31/22
metformin 500 mg tablet 500 mg PO BID@0800,1700 Diabetes 08/31/22
multivitamin 1 tab PO DAILY Supplement 08/31/22
perphenazine 8 mg tablet 16 mg PO BID distress 08/31/22
trihexyphenidyl 5 mg tablet 5 mg PO BIDPRN PRN restlessness 08/31/22
lisinopril 30 mg tablet 30 mg PO DAILY Blood Pressure 05/21/23
Home Medication Changes
Pt states he had already stopped the Ozempic
Pending Results: Yes
Additional Pending Results:
final results of stool studies pending, studies are negative to date
[2023-05-24 11:45] LABS: Glucose - Point of Care 104 mg/dl (70-99)
--- NOTE | 2023-05-24 12:40 | PTCARENOTE ---
Patient is up for discharge, instructions printed and discussed with patient. 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
== END 2023-05-24 13:37 | disposition home or self-care (01) | DRG 683 ==
LOC: 2 NORTH 18:48
PROVIDERS: Emergency Medicine; Physician Assistant Medical; ADMITTING PHYSICIAN Internal Medicine; ATTENDING PHYSICIAN Internal Medicine; EMERGENCY PHYSICIAN Emergency Medicine; FAMILY PHYSICIAN Family Medicine
DX: N17.9 Acute kidney failure, unspecified (principal); Z68.41 Body mass index [BMI] 40.0-44.9, adult; Z87.891 Personal history of nicotine dependence; I10 Essential (primary) hypertension; E11.9 Type 2 diabetes mellitus without complications; F31.9 Bipolar disorder, unspecified; F20.9 Schizophrenia, unspecified; A08.4 Viral intestinal infection, unspecified; E86.0 Dehydration; E66.9 Obesity, unspecified
CPT/HCPCS: 74176; 80048; 80053; 81003; 82570; 82962; 83036; 83605; 83690; 83735; 84300; 85025; 85027; 87040; 87045; 87046; 87324; 87427; 87449; 87798; 89055; 93005; 96360; 99285

== ENCOUNTER 2023-07-19 08:28 | Outpatient (RCR) | payer MEDICARE, SELFPAY | END 2023-07-19 23:59 | disposition home or self-care (01) | LOC: RPT 08:28 | PROVIDERS: ATTENDING PHYSICIAN Physician Assistant; FAMILY PHYSICIAN Family Medicine | DX: T84.018D Broken internal joint prosthesis, other site, subsequent encounter (principal); Z73.6 Limitation of activities due to disability; Z96.651 Presence of right artificial knee joint | CPT/HCPCS: 97110; 97162 ==

== ENCOUNTER 2023-08-14 09:48 | Outpatient (RCR) | payer MEDICARE, SELFPAY | END 2023-08-14 23:59 | disposition home or self-care (01) | LOC: RPT 09:48 | PROVIDERS: ATTENDING PHYSICIAN Physician Assistant; FAMILY PHYSICIAN Family Medicine | DX: Z47.1 Aftercare following joint replacement surgery (principal); Z96.651 Presence of right artificial knee joint | CPT/HCPCS: 97110; 97112; 97530 ==

== ENCOUNTER 2023-08-14 13:28 | Emergency (ER) | payer MEDICARE, SELFPAY ==
[2023-08-14 13:34] VITALS: BP 188/106
--- NOTE | 2023-08-14 15:33 | ED.GENMED ---
History of Present Illness
<July Sorenson PA-C - Last Filed: 08/15/23 12:33>
General
Chief Complaint: Extremity Pain (non-traumatic)
Source: patient
Exam Limitations: none
Time Seen by Provider: 08/14/23 14:42
Nursing documentation reviewed up to this point in time: agreed with
History of Present Illness
History of Present Illness:
58 y/o M with h/o HTN, HLD, bipolar disorder/schizophrenia
sent by his PCP after he went there today for about 2 weeks RLE edema and rednees to his RLE as well as sob and cp that has been going on for a few days
pt had R TKR 06/07/23 [facility]
says he was healing ok and doing well until about 2 weeks ago when he started the edema and redness in the leg
he called them [facility] and they said it can be normal for 3 months
today he ended up going to PCP because 'of other symptoms' - he said he has had a few days of feeling sob and a little discomfort in his chest
this is new
he has nnot had fever, cough
his PCP sent him for US for r/o DVT he says
pt denies h/o dvt/pe
Past History
<July Sorenson PA-C - Last Filed: 08/15/23 12:33>
Past History
ED Past Medical History: HTN and Psychiatric
ED Past Surgical History: Orthopedic (Bilateral knee replacement) and Other (Inguinal herniorrhaphy)
Social History
Tobacco: Former smoker
Alcohol: None
Drug: None
Personal:
Living: alone
Employment: Disabled
Family History
Family History: Other (Noncontributory)
Review of Systems
<July Sorenson PA-C - Last Filed: 08/15/23 12:33>
Review of Systems
Allergies reviewed?: Yes
All Other Systems: Not applicable
Phy Exam
<July Sorenson PA-C - Last Filed: 08/15/23 12:33>
Physical Exam
Physical Exam:
GENERAL: Alert , in no apparent distress
EYE: pupils equal and reactive
NECK: Supple
ENT: o/p clr, mmm.
CARDIAC: Regular rate and rhythm .no edema
LUNGS: Clear breath sounds bilaterally, no acute respiratory distress, no wheezes/rales/rhonchi
ABDOMEN: Soft, obese without focal tenderness, no r/g, no cvat, normal bowel sounds
NEUROLOGICAL: Alert and oriented, no focal neuro deficits
SKIN: Warm and dry, skin intact. diffusely red/pink leg up to proximal thigh; slightly purplish pink; but perfused, normal pulse DP, cap refill intact
incision site looks well healed
MUSCULOSKELETAL: moderately swollen RLE compared to LLE
PSYCH: Normal and appropriate interaction.
Course
<July Sorenson PA-C - Last Filed: 08/15/23 12:33>
Orders/Labs/Results
Orders:
Orders
08/14/23 14:49
US Periph Venous LOWER Ext RT Urgent
Comment:
Reason For Exam: swelling, TKR <6months, sent by primary to r/o DVT
08/14/23 15:26
CT Chest Pe Study Urgent
Comment:
Reason For Exam: right LE swelling, redness, sob
08/14/23 15:30
Electrocardiogram (*1) Urgent
Reason for Study: Shortness of Breath
EKG- Treatment ONCE
08/14/23 15:38
Comprehensive Metabolic Panel Urgent
NT-proBNP Urgent
PTT Urgent
Prothrombin Time Urgent
Troponin I Urgent
08/14/23 16:17
Complete Blood Count/With Diff Urgent
08/14/23 17:47
Cephalexin Monohydrate [Keflex] 500 mg PO NOW STA
Abnormal Lab Results
08/14/23 08/14/23
15:38 16:17
Absolute Neuts (auto) 6.6 H 10^3/uL
(1.4-6.5)
Absolute Monos (auto) 0.7 H 10^3/uL
(0.1-0.6)
Eosinophils % 6.4 H %
(0-6)
Glucose 246 H mg/dl
(70-99)
Alkaline Phosphatase 165 H U/L
(38-126)
08/14/23 16:17
08/14/23 15:38
Vital Signs
Initial and Last Documented VS:
Initial Vital Signs
Temp Pulse Resp BP Pulse Ox
98 F 98 18 188/106 95
08/14/23 13:34 08/14/23 13:34 08/14/23 13:34 08/14/23 13:34 08/14/23 13:34
Last Documented Vital Signs
Temp Pulse Resp BP Pulse Ox
98 F 98 18 188/106 95
08/14/23 13:34 08/14/23 13:34 08/14/23 13:34 08/14/23 13:34 08/14/23 13:34
<Michael Hart PA-C - Last Filed: 08/14/23 17:45>
Orders/Labs/Results
Orders:
Orders
08/14/23 14:49
US Periph Venous LOWER Ext RT Urgent
Comment:
Reason For Exam: swelling, TKR <6months, sent by primary to r/o DVT
08/14/23 15:26
CT Chest Pe Study Urgent
Comment:
Reason For Exam: right LE swelling, redness, sob
08/14/23 15:30
Electrocardiogram (*1) Urgent
Reason for Study: Shortness of Breath
EKG- Treatment ONCE
08/14/23 15:38
Comprehensive Metabolic Panel Urgent
NT-proBNP Urgent
PTT Urgent
Prothrombin Time Urgent
Troponin I Urgent
08/14/23 16:17
Complete Blood Count/With Diff Urgent
08/14/23 17:47
Cephalexin Monohydrate [Keflex] 500 mg PO NOW STA
Abnormal Lab Results
08/14/23 08/14/23
15:38 16:17
Absolute Neuts (auto) 6.6 H 10^3/uL
(1.4-6.5)
Absolute Monos (auto) 0.7 H 10^3/uL
(0.1-0.6)
Eosinophils % 6.4 H %
(0-6)
Glucose 246 H mg/dl
(70-99)
Alkaline Phosphatase 165 H U/L
(38-126)
08/14/23 16:17
08/14/23 15:38
Vital Signs
Initial and Last Documented VS:
Initial Vital Signs
Temp Pulse Resp BP Pulse Ox
98 F 98 18 188/106 95
08/14/23 13:34 08/14/23 13:34 08/14/23 13:34 08/14/23 13:34 08/14/23 13:34
Last Documented Vital Signs
Temp Pulse Resp BP Pulse Ox
98 F 98 18 188/106 95
08/14/23 13:34 08/14/23 13:34 08/14/23 13:34 08/14/23 13:34 08/14/23 13:34
<July Sorenson PA-C - Last Filed: 08/15/23 12:33>
MDM/Problems Addressed
Differential Diagnosis Includes:
dvt, PE, cellulitis
MDM/Problems Addressed:
58 y/o M with h/o schziophrenia, bipolar
2 mo post op R TKR
here with right lower extremity swelling and diffuse redness, worsening x 2 weeks now with sob x 3 days
esnt by PCP
no hypoxia, tachycardia
but swollen leg with significant skin color difference, although not angry red it is purplish red with normal pulse
cellulitis vs. dvt
US neg
but with the sob symptoms concern for already embolized dvt/pe
will w/u with labs, ct scan
consider admission for cellulitis given redness extends > 1/2 the LE
signed out to lynsday BENTON
<Michael Hart PA-C - Last Filed: 08/14/23 17:45>
*Critical Care Note
Total Time (30-74mins, 75-104mins- exclusive of procedures): Not Applicable
<Michael Hart PA-C - Last Filed: 08/14/23 17:45>
Update Note
Update Note:
Received care of patient pending CT scan of chest. Patient here for swollen right leg following knee replacement with shortness of breath as well. Ultrasound of leg negative for DVT. CT PE study negative for pulmonary embolism. Examined patient
he is dressed in his street close. He sitting in the chair. He expresses his desire to go home. He states he has young animals to take care of. I did explain that he is a diabetic and is at risk for worsening infection of his leg. He was aware
of this. Will prescribe Keflex for his cellulitis. He understood return precautions. He was discharged
ED Attending Note
<July Sorenson PA-C - Last Filed: 08/15/23 12:33>
-
Portions of this chart may have been created with voice recognition software.� Occasional wrong word or��sound alike� substitutions may have occurred due to the inherent limitations of voice recognition software.
Discharge Plan
Departure
Patient Disposition: Home (Routine Discharge)
Date of Disposition: 08/14/23
Time of Disposition: 17:42
Patient with high blood pressure during this ER visit?: No
Discharge Problem:
Cellulitis
Instructions: Cellulitis (Skin Infection), Adult ED
Prescriptions:
New
cephalexin 500 mg capsule
500 mg PO Q6H 7 Days Qty: 28 0RF
No Action
metformin 500 mg tablet
500 mg PO BID@0800,1700
atorvastatin 10 mg tablet
10 mg PO DAILY
trihexyphenidyl 5 mg tablet
5 mg PO BIDPRN PRN (Reason: restlessness)
ergocalciferol (vitamin D2) 1,250 mcg (50,000 unit) capsule
1,250 mcg PO TH
perphenazine 8 mg tablet
16 mg PO BID
hydroxyzine pamoate 25 mg capsule
25 mg PO DAILY
multivitamin Tablet
1 tab PO DAILY
ascorbic acid (vitamin C) [Vitamin C] 500 mg Tablet
500 mg PO DAILY
lisinopril 30 mg Tablet
30 mg PO DAILY
Referrals:
UNKNOWN - PT NOT,INTERVIEWE [Unknown Provider] -
Activity Restrictions/Additional Instructions:
Please take antibiotics as directed. Please return here for increasing redness swelling or pain to the leg. Follow-up with your family doctor otherwise.
Interventions
Interventions:
*Risk Screen - Suicide Last Done: 08/14/23 14:12
*General Assessment Last Done: 08/14/23 14:12
*Neglect/Abuse Screening Last Done: 08/14/23 14:12
*ED COVID-19 Vaccine History Last Done: 08/14/23 14:12
ED-Musculoskeletal Assessment Last Done: 08/14/23 14:12
ED-Peripheral Vascular Assessment Last Done: 08/14/23 14:49
ED-Skin Assessment Last Done: 08/14/23 14:14
Discharge Date and Time
Print Language: MACEDONIAN
[2023-08-14 16:05] LABS: APTT 23.6 Sec (23.4-35.0); INR 1.04; PT 13.4 Sec (11.4-14.6)
[2023-08-14 16:21] LABS: NT-proBNP 28.9 pg/ml; Troponin I < 0.012 ng/ml
[2023-08-14 16:23] LABS: % Basophils 0.5 % (0-2); % Eosinophils 6.4 % (0-6); % Immature Granulocytes 0.2 % (0-0.5); % Lymphocytes 22.5 % (20.5-51.1); % Neutrophils 63.4 % (42.2-75.2); Absolute Basophils 0.1 10^3/uL (0-0.2); Absolute Eosinophils 0.7 10^3/uL (0-0.7); Absolute Lymphocytes 2.4 10^3/uL (1.2-3.4); Absolute Monocytes 0.7 10^3/uL (0.1-0.6); Absolute Neutrophils 6.6 10^3/uL (1.4-6.5); Hematocrit 42.4 % (39.0-52.0); Hemoglobin 14.2 g/dL (13.0-18.0); Mean Corp Hgb Conc. 33.5 g/dL (33.0-37.0); Mean Corpuscular Hgb 29.4 pg (27.0-31.0); Mean Corpuscular Volume 87.8 fL (80.0-94.0); Mean Platelet Volume 10.4 fL (7.4-10.4); Nucleated Red Blood Cells % 0 % (-); Platelet Count 185 10^3/uL (130-400); Red Blood Cell Count 4.83 10^6/uL (4.70-6.10); Red Cell Dist. Width 13.4 % (11.5-14.5); White Blood Cell Count 10.5 10^3/uL (4.8-10.8)
[2023-08-14 16:34] LABS: ALT (SGPT) 43 U/L (0-50); AST (SGOT) 36 U/L (17-59); Albumin 4.3 g/dl (3.5-5.0); Alkaline Phosphatase 165 U/L (38-126); Blood Urea Nitrogen 15 mg/dl (9-20); Calcium 9.8 mg/dl (8.4-10.2); Carbon Dioxide 29 mmol/L (22-30); Chloride 98 mmol/L (98-107); Glucose 246 mg/dl (70-99); Potassium 4.3 mmol/L (3.5-5.1); Sodium 136 mmol/L (135-145); Total Bilirubin 0.9 mg/dl (0.2-1.3); Total Protein 7.1 g/dl (6.3-8.2); eGFR > 60.00
[2023-08-14] MEDS: KEFLEX 500 MG PO (17:50)
== END 2023-08-14 18:00 | disposition home or self-care (01) ==
LOC: EMR 13:28
PROVIDERS: Physician Assistant; EMERGENCY PHYSICIAN Emergency Medicine; FAMILY PHYSICIAN Family Medicine
DX: L03.115 Cellulitis of right lower limb (principal); I10 Essential (primary) hypertension; E78.00 Pure hypercholesterolemia, unspecified; F31.9 Bipolar disorder, unspecified; F20.9 Schizophrenia, unspecified
CPT/HCPCS: 99284; 71275; 80053; 83880; 84484; 85025; 85610; 85730; 93005; 93971; Q9967

== ENCOUNTER 2023-09-20 10:40 | Outpatient (RCR) | payer MEDICARE, SELFPAY | END 2023-09-20 23:59 | disposition home or self-care (01) | LOC: RPT 10:40 | PROVIDERS: ATTENDING PHYSICIAN Physician Assistant; FAMILY PHYSICIAN Family Medicine | DX: Z47.1 Aftercare following joint replacement surgery (principal); Z96.651 Presence of right artificial knee joint | CPT/HCPCS: 97110; 97112; 97530 ==

== ENCOUNTER 2023-10-18 18:46 | Inpatient (IN) | payer MEDICARE, SELFPAY ==
[2023-10-18 16:56] VITALS: BP 137/96
--- NOTE | 2023-10-18 16:57 | ED.PDOC.TRB ---
ED Provider Triage
-
Patient seen by provider in Triage?: Seen in Triage
A medical screening examination has been initiated by a qualified medical provider. Based on the assessment performed at this time, it has been determined that an emergent medical condition may exist and the patient has been informed that further
medical evaluation and possible additional diagnostic testing may be needed.
HPI: This is a medical evaluation conducted in person to initiate diagnostic evaluation and provide initial therapeutics. Please see further documentation by the treating clinician.
GENERAL: Alert , sweating
EYE: No visual abnormalities.
NECK: Trachea midline
ENT: No visible abnormalities.
LUNGS: No acute respiratory distress
NEUROLOGICAL: Alert and oriented
SKIN: no visible lesions.
MUSCULOSKELETAL: Moving extremities normally
PSYCH: Normal and appropriate interaction.
58-year-old male with past medical history of NIDDM presented to the emergency department today with concerns of generalized weakness fatigue sweatiness in association with polydipsia and polyuria over the past few days. He is not able to check his
sugar levels at home. Denies any specific chest pain shortness of breath plan for checking glucose level labs and EKG.
[2023-10-18 17:06] LABS: Glucose - Point of Care > 600 mg/dl (70-99)
[2023-10-18] MEDS: NSS 1000 IV ×3 (17:15→22:28)
[2023-10-18 17:19] LABS: % Basophils 0.7 % (0-2); % Eosinophils 3.9 % (0-6); % Immature Granulocytes 0.2 % (0-0.5); % Lymphocytes 25.8 % (20.5-51.1); % Monocytes 7.1 % (1.7-9.3); % Neutrophils 62.3 % (42.2-75.2); Absolute Basophils 0.1 10^3/uL (0-0.2); Absolute Eosinophils 0.3 10^3/uL (0-0.7); Absolute Lymphocytes 2.3 10^3/uL (1.2-3.4); Absolute Monocytes 0.6 10^3/uL (0.1-0.6); Absolute Neutrophils 5.4 10^3/uL (1.4-6.5); Hematocrit 43.5 % (39.0-52.0); Hemoglobin 15.7 g/dL (13.0-18.0); Mean Corp Hgb Conc. 36.1 g/dL (33.0-37.0); Mean Corpuscular Hgb 29.8 pg (27.0-31.0); Mean Corpuscular Volume 82.5 fL (80.0-94.0); Mean Platelet Volume 11.2 fL (7.4-10.4); Nucleated Red Blood Cells % 0 % (-); Platelet Count 199 10^3/uL (130-400); Red Blood Cell Count 5.27 10^6/uL (4.70-6.10); Red Cell Dist. Width 13.3 % (11.5-14.5); Venous Blood Gas B.E. -3.2 mmol/L (-4 to +4); Venous Blood Gas HCO3 21.3 mmol/L (22-27); Venous Blood Gas O2 Sat % 99.1 %; Venous Blood Gas pCO2 36 mmHg (35-48); Venous Blood Gas pH 7.38 (7.32-7.43); Venous Blood Gas pO2 171 mmHg (30-50); White Blood Cell Count 8.7 10^3/uL (4.8-10.8)
[2023-10-18 17:39] LABS: ALT (SGPT) 56 U/L (0-50); AST (SGOT) 37 U/L (17-59); Albumin 3.9 g/dl (3.5-5.0); Alkaline Phosphatase 333 U/L (38-126); Blood Urea Nitrogen 25 mg/dl (9-20); Calcium 10.2 mg/dl (8.4-10.2); Carbon Dioxide 20 mmol/L (22-30); Chloride 95 mmol/L (98-107); Potassium 5.4 mmol/L (3.5-5.1); Sodium 129 mmol/L (135-145); Total Bilirubin 0.9 mg/dl (0.2-1.3); Total Protein 6.1 g/dl (6.3-8.2); eGFR > 60.00
[2023-10-18 17:45] VITALS: BP 124/66
--- NOTE | 2023-10-18 17:46 | ED.GENMED ---
History of Present Illness
General
Chief Complaint: Abdominal Symptoms
Source: patient
Exam Limitations: none
Time Seen by Provider: 10/18/23 17:41
Nursing documentation reviewed up to this point in time: agreed with
History of Present Illness
History of Present Illness:
58-year-old male type II diabetic on metformin also bipolar lives alone with his cats does not drink or smoke few days of polydipsia polyuria fatigue no chest pain read on the Internet that he should come in and get checked out,
Past History
Past History
ED Past Medical History: HTN, NIDDM and Psychiatric
ED Past Surgical History: Orthopedic (Bilateral knee replacement) and Other (Inguinal herniorrhaphy)
Social History
Tobacco: Former smoker
Alcohol: None
Drug: None
Personal:
Living: alone
Employment: Disabled
Family History
Family History: Other (Noncontributory)
Review of Systems
Review of Systems
All Other Systems: Not applicable
Constitutional: Reports fatigue
EENT: Reports no symptoms
Respiratory: Reports no symptoms
Cardiac: Denies chest pain
ABD/GI: Reports nausea
: Reports no symptoms
Musculoskeletal: Reports no symptoms
Neurological: Reports weakness
Endocrine: Reports polyuria and temp intolerance
Psychiatric: Reports no symptoms
Phy Exam
Physical Exam
Physical Exam:
Physical Exam
General: Tachypneic male
Neck: Dry lips
Heart: Tachycardic
Lungs: no acute respiratory distress. clear bilaterally
Abdomen: Distended
Neuro: alert and oriented. no focal neurological deficits
Skin: no rash
Psychiatric: well kept. interactive and cooperative
Extremities: no edema.
Course
Orders/Labs/Results
Orders:
Orders
10/18/23 16:57
Electrocardiogram (*1) Stat
Reason for Study: Other
Other Reason for Exam: Diabetes
Bedside Glucose- Treatment ONCE
EKG- Treatment ONCE
10/18/23 17:06
0.9% Sodium Chloride 1000 ml [Nss] 1,000 ml IV BOLUS
10/18/23 17:07
B-Hydroxybutyrate Urgent
Complete Blood Count/With Diff Urgent
Comprehensive Metabolic Panel Urgent
Venous Blood Gas Urgent
%Oxygen/Room Air: 99
10/18/23 17:31
Urinalysis Reflex To Culture Urgent
Date Specimen was Collected: 10/18/23
Time Specimen was Collected: 17:30
10/18/23 17:44
CR Chest Portable - 1 View Urgent
Comment:
Reason For Exam: sob
Reason Study Needs to be Portable: Patient Unstable
10/18/23 17:45
Troponin I Urgent
10/18/23 17:49
Add On- LAB Urgent
Tests Added?: hemoglobin a1c
10/18/23 18:00
Reg Insulin 100 Units/100 ml [Novolin R Insulin Infusion] 100 units in 100 ml IV ORDERED RATE
Abnormal Lab Results
10/18/23 10/18/23
17:05 17:07
MPV 11.2 H fL
(7.4-10.4)
VBG pO2 171 H mmHg
(30-50)
VBG HCO3 21.3 L mmol/L
(22-27)
Sodium 129 L mmol/L
(135-145)
Potassium 5.4 H mmol/L
(3.5-5.1)
Chloride 95 L mmol/L
(98-107)
Carbon Dioxide 20 L mmol/L
(22-30)
BUN 25 H mg/dl
(9-20)
Glucose 840 H* mg/dl
(70-99)
ALT 56 H U/L
(0-50)
Alkaline Phosphatase 333 H U/L
(38-126)
Total Protein 6.1 L g/dl
(6.3-8.2)
B-Hydroxybutyrate 1.28 H mmol/L
(0.02-0.27)
POC Glucose > 600 H* mg/dl
(70-99)
10/18/23 17:07
10/18/23 17:07
Vital Signs
Initial and Last Documented VS:
Initial Vital Signs
Temp Pulse Resp BP Pulse Ox
98.7 F 104 18 137/96 96
10/18/23 16:56 10/18/23 16:56 10/18/23 16:56 10/18/23 16:56 10/18/23 16:56
Last Documented Vital Signs
Temp Pulse Resp BP Pulse Ox
98.7 F 104 18 137/96 96
10/18/23 16:56 10/18/23 16:56 10/18/23 16:56 10/18/23 16:56 10/18/23 16:56
MDM/Problems Addressed
Differential Diagnosis Includes:
DKA, HHNK, noncompliance, occult infection, called MRI
MDM/Problems Addressed:
High blood sugar
Chronic conditions affecting care: DM
Acute Exacerbation and/or Progression of Chronic Illness: DM
*Radiology
Radiology exam reviewed: preliminary read by ED provider
*Pulse Oximetry
Patient hypoxic: no
*EKG
Interpreted by ED Provider?: Yes
Comparison EKG: no comparison EKG present
Heart Rate: 106
Rate: tachycardiac
Rhythm: sinus
Ischemia: non-specific ST changes
*Food Safety Technician Interpretation
Rate: tachycardiac
Interpretation: abnormal
Heart Rate: 106
Rhythm: sinus
*Critical Care Note
Total Time (30-74mins, 75-104mins- exclusive of procedures): 31
Patient Management
Social determinants of health affecting care: Living situation
Discussion with other providers: Hospitalist
Escalation/DeEscalation of care consider admission/obs:
Patient will require admission for IV insulin
ED Attending Note
-
Portions of this chart may have been created with voice recognition software.� Occasional wrong word or��sound alike� substitutions may have occurred due to the inherent limitations of voice recognition software.
Discharge Plan
Departure
Patient Disposition: Admit
Date of Disposition: 10/18/23
Time of Disposition: 17:53
Admit to: ICU
Presentation/result/management discussed w/ accepting MD/DO: Hospitalist
Patient with high blood pressure during this ER visit?: No
Condition: Fair
Discharge Problem:
Diabetic ketoacidosis
Prescriptions:
No Action
metformin 500 mg tablet
500 mg PO BID@0800,1700
atorvastatin 10 mg tablet
10 mg PO DAILY
trihexyphenidyl 5 mg tablet
5 mg PO BIDPRN PRN (Reason: restlessness)
ergocalciferol (vitamin D2) 1,250 mcg (50,000 unit) capsule
1,250 mcg PO TH
perphenazine 8 mg tablet
16 mg PO BID
hydroxyzine pamoate 25 mg capsule
25 mg PO DAILY
multivitamin Tablet
1 tab PO DAILY
ascorbic acid (vitamin C) [Vitamin C] 500 mg Tablet
500 mg PO DAILY
lisinopril 30 mg Tablet
30 mg PO DAILY
cephalexin 500 mg capsule
500 mg PO Q6H 7 Days Qty: 28 0RF
Interventions
Interventions:
*Risk Screen - Suicide Last Done: 10/18/23 16:56
*General Assessment Last Done: 10/18/23 16:56
*Neglect/Abuse Screening Last Done: 10/18/23 16:56
Discharge Date and Time
Print Language: GREENLANDIC
[2023-10-18 17:48] LABS: B-Hydroxybutyrate 1.28 mmol/L (0.02-0.27); Glucose 840 mg/dl (70-99)
[2023-10-18 17:56] LABS: Urine Albumin Negative (Neg - Trace); Urine Bilirubin Negative (Negative); Urine Character Clear (Clear); Urine Color Yellow; Urine Glucose 3+ (Negative); Urine Ketone 1+ (Negative); Urine Leukocyte Negative (Negative); Urine Nitrite Negative (Negative); Urine Occult Blood Negative (Negative); Urine Urobilinogen Negative (Neg - 1+)
[2023-10-18 18:00] VITALS: BP 116/63
[2023-10-18 18:02] VITALS: BMI 45.8
--- NOTE | 2023-10-18 18:16 | HPS.HSE ---
Family Physician
-
Family Physician: Unknown
Chief Complaint
-
Abdominal pain, polyuria, polydipsia
History of Present Illness
Patient is a 58-year-old male with type 2 diabetes, hypertension, bipolar disorder, s/p bilateral knee replacements, s/p inguinal hernia repair that presented to the ED today with the complaint of abdominal pain. Complained of polydipsia and
polyuria over the last few days with associated fatigue. He denied any chest pain, shortness of breath, fevers or chills recently. He was reading about his symptoms online and felt that he should come into the ED to get checked out. Currently
takes metformin 500 mg twice daily for type 2 diabetes. On arrival to the ED he was afebrile, hemodynamically stable, and on room air comfortably. Initial labs showed sodium 129, potassium 5.4, glucose 840, AG 14, ALP 333. VBG showed pH 7.38 with
bicarb 21. Beta hydroxybutyrate was elevated at 1.28. ECG was without acute ST deviations or T wave abnormalities, no inherent arrhythmias. He was started on IV insulin drip in the ED.
Medical History
Past Medical History
Past Medical History: Reports NIDDM
Past Surgical History: Reports Orthopedic
Social History
Tobacco: Non-smoker
Alcohol: None
Drug: None
Family History
Family History: Not pertinent
Allergies / Home Medications
Allergies reflects when Allergies were last updated in [facility].
Home Medications with original date entered in [facility]
Allergy/Medication List:
Allergies
Allergy/AdvReac Type Severity Reaction Status Date / Time
No Known Allergies Allergy Verified 10/18/23 16:56
Home Medications
ascorbic acid (vitamin C) 500 mg tablet (Vitamin C) 1,000 mg PO DAILY Supplement 08/31/22
atorvastatin 10 mg tablet 10 mg PO DAILY High Cholesterol 08/31/22
hydroxyzine pamoate 25 mg capsule 25 mg PO DAILY anxiety 08/31/22
metformin 500 mg tablet 500 mg PO BID@0800,1700 Diabetes 08/31/22
multivitamin 1 tab PO DAILY Supplement 08/31/22
perphenazine 8 mg tablet 16 mg PO DAILY distress 08/31/22
trihexyphenidyl 5 mg tablet 5 mg PO BIDPRN PRN restlessness 08/31/22
hydrochlorothiazide 12.5 mg tablet 12.5 mg PO DAILY 10/18/23
lisinopril 40 mg tablet 40 mg PO DAILY 10/18/23
Review of Systems
-
History Source: Patient
A 12 point ROS was completed and negative except as noted: Yes
Constitutional: Reports No Symptoms
EENT: Reports No Symptoms
Respiratory: Reports No Symptoms
Cardiac: Reports No Symptoms
Abdomen/GI: Reports Abdominal Pain; Denies Bloody Stools or Black Stools
: Reports No Symptoms
Musculoskeletal: Reports No Symptoms
Skin: Reports No Symptoms
Neurological: Reports No Symptoms
Endocrine: Reports Polyuria and Polydipsia
Hematologic/Lymphatic: Reports No Symptoms
Psych: Reports No Symptoms
Physical Exam
Vital Signs
Vital Signs
Temp Pulse Resp BP Pulse Ox
98.7 F 98 18 124/66 96
10/18/23 16:56 10/18/23 17:46 10/18/23 17:46 10/18/23 17:45 10/18/23 17:46
Physical Exam
General: No Apparent Distress, Poor Appetite and Morbidly Obese
HEENT: NormoCephalic, Anicteric, Atraumatic and Other (Dry mucosal membranes)
Respiratory: Clear and Non Labored Respirations; No Wheezes, Rales or Rhonchi
Cardiac: S1/S2, Regular Rhythm and Tachycardia; No Murmur, Rub, Gallop or Peripheral Edema
GI: Soft, Non Tender, Non Distended and Normal Bowel Sounds
Musculoskeletal: No Clubbing, No Cyanosis and No Edema
Skin: Warm, Dry and Other (Reduced skin turgor); No Rash or Jaundice
Neuro: AO x 3, Nonfocal/grossly intact and Cranial Nerves Intact
Hematologic/Lymphatic: No Lymphadenopathy
Laboratory Results
-
10/18/23 17:07
10/18/23 17:07
Laboratory Results
Total Bilirubin 0.9 mg/dl (0.2-1.3) 10/18/23 17:07
AST 37 U/L (17-59) 10/18/23 17:07
ALT 56 U/L (0-50) H 10/18/23 17:07
Alkaline Phosphatase 333 U/L (38-126) H 10/18/23 17:07
Impression/Plan
-
#HHS/DKA -- seems more nonketotic, higher serum glucose, consistent with HHS more than DKA
#Chronic T2DM
-Likely due to dietary indiscretion, states he eats lots of burgers and other foods
-Suspect HHS with higher glucose levels, lower AG of only 14 seen on labs here
-Currently on metformin twice daily, moderate intensity statin for type 2 diabetes mellitus
-Beta hydroxybutyrate was elevated, started on insulin drip in ED
-Unclear trigger, cannot rule out infection at this time though no obvious signs
-Unclear how compliant he is to his medications and dietary restrictions
Plan
-Start IV insulin protocol, give 0.1 U/kh/hr pending closure of anion gap
-Plan to transition to 0.05 unit/h IV insulin when glucose < 300
-Continue with IV fluids and trend BMP every 2 hours, Replete K <5.3
-Transition to subcu insulin regimen when tolerating oral intake
-Public Administration Teacher consulted
#Hypertension
-No known history of hypertensive cardiovascular disease
-Home regimen includes HCTZ 12.5 mg and lisinopril 40 mg daily
-Holding antihypertensives and diuretic in context of relative hypovolemic state
-Plan to resume antihypertensive regimen while here if necessary
DVT prophylaxis: Lovenox
Diet: N.p.o.
CODE STATUS: Full code
Disposition: Admit to ICU
I will be admitting Dayo Robins to the ICU for HHS/DKA. He is at high risk for ongoing morbidity and mortality due to significant systemic acidemia and ketosis without proper initiation of insulin therapy. He will require intensive monitoring of
his labs with IV insulin, supplementation with potassium and phosphorus when needed. I have spoken with the ED and ICU attending in order to facilitate care of this patient.
[2023-10-18 18:33] LABS: Glucose - Point of Care > 600 mg/dl (70-99)
[2023-10-18 19:05] LABS: Troponin I < 0.012 ng/ml
[2023-10-18] MEDS: NOVOLIN R INSULIN INFUSION 100 IV (19:06)
[2023-10-18 19:07] LABS: Glucose 722 mg/dl (70-99)
[2023-10-18 19:12] VITALS: BP 118/60
[2023-10-18 20:36] LABS: Glucose - Point of Care 531 mg/dl (70-99)
[2023-10-18 20:46] LABS: Venous Blood Gas B.E. -2.6 mmol/L (-4 to +4); Venous Blood Gas HCO3 21.8 mmol/L (22-27); Venous Blood Gas O2 Sat % 99.2 %; Venous Blood Gas pCO2 36 mmHg (35-48); Venous Blood Gas pH 7.39 (7.32-7.43); Venous Blood Gas pO2 158 mmHg (30-50)
[2023-10-18 20:47] VITALS: BP 135/81
[2023-10-18] MEDS: LOVENOX 40 MG SC (20:51)
[2023-10-18 20:53] LABS: INR 0.99
[2023-10-18 20:54] LABS: APTT 23.2 Sec (23.4-35.0)
[2023-10-18 21:00] VITALS: BP 114/82
[2023-10-18] MEDS: TRILAFON PO (21:04)
[2023-10-18 21:33] LABS: Blood Urea Nitrogen 22 mg/dl (9-20); Calcium 10.1 mg/dl (8.4-10.2); Carbon Dioxide 20 mmol/L (22-30); Chloride 100 mmol/L (98-107); Estimated Creatinine Clearance > 125 ml/min; Glucose 539 mg/dl (70-99); Phosphorus 4.5 mg/dl (2.5-4.5); Potassium 4.5 mmol/L (3.5-5.1); Sodium 133 mmol/L (135-145); eGFR > 60.00
--- NOTE | 2023-10-18 21:53 | PTCARENOTE ---
Pt Aox3, VSS, NSR on monitor, postive pulses. denies pain, received on insulin gtt at 5units. NS infusing at 250ml/hr. BG finger stick too high to register, Venous stick performed, titrating based off results from lab. Skin is intact, urinal at
bedside. pt offers no complaints at this time.
[2023-10-18 22:29] VITALS: BMI 44.5
[2023-10-18 22:37] LABS: Glucose - Point of Care 373 mg/dl (70-99)
[2023-10-18 23:39] LABS: Glucose - Point of Care 372 mg/dl (70-99)
[2023-10-19] VITALS (16 sets, daily range): BP systolic 111–170; BP diastolic 77–102; BMI 44.5
--- NOTE | 2023-10-19 00:30 | PTCARENOTE ---
assessment unchanged, continuing with insulin gtt and NS@250ml/hr.
[2023-10-19 00:33] LABS: Glucose - Point of Care 335 mg/dl (70-99)
[2023-10-19 01:22] LABS: Blood Urea Nitrogen 18 mg/dl (9-20); Calcium 9.5 mg/dl (8.4-10.2); Carbon Dioxide 27 mmol/L (22-30); Chloride 106 mmol/L (98-107); Estimated Creatinine Clearance > 125 ml/min; Glucose 271 mg/dl (70-99); Potassium 3.9 mmol/L (3.5-5.1); Sodium 141 mmol/L (135-145); eGFR > 60.00
[2023-10-19 01:38] LABS: Glucose - Point of Care 242 mg/dl (70-99)
[2023-10-19] MEDS: NSS 1000 IV (02:21)
[2023-10-19 02:45] LABS: Glucose - Point of Care 243 mg/dl (70-99)
[2023-10-19 04:00] LABS: Glucose - Point of Care 248 mg/dl (70-99)
[2023-10-19 04:02] LABS: Venous Blood Gas B.E. -0.4 mmol/L (-4 to +4); Venous Blood Gas HCO3 25.4 mmol/L (22-27); Venous Blood Gas O2 Sat % 99.2 %; Venous Blood Gas pCO2 45 mmHg (35-48); Venous Blood Gas pH 7.36 (7.32-7.43); Venous Blood Gas pO2 154 mmHg (30-50)
[2023-10-19 04:22] LABS: Blood Urea Nitrogen 18 mg/dl (9-20); Calcium 9.1 mg/dl (8.4-10.2); Carbon Dioxide 25 mmol/L (22-30); Chloride 107 mmol/L (98-107); Estimated Creatinine Clearance > 125 ml/min; Glucose 251 mg/dl (70-99); Potassium 4.1 mmol/L (3.5-5.1); Sodium 139 mmol/L (135-145); eGFR > 60.00
[2023-10-19 04:41] LABS: % Basophils 0.8 % (0-2); % Eosinophils 7.6 % (0-6); % Immature Granulocytes 0.3 % (0-0.5); % Lymphocytes 40.2 % (20.5-51.1); % Monocytes 8.1 % (1.7-9.3); Absolute Basophils 0.1 10^3/uL (0-0.2); Absolute Eosinophils 0.5 10^3/uL (0-0.7); Absolute Lymphocytes 2.5 10^3/uL (1.2-3.4); Absolute Monocytes 0.5 10^3/uL (0.1-0.6); Absolute Neutrophils 2.7 10^3/uL (1.4-6.5); Hematocrit 41.3 % (39.0-52.0); Hemoglobin 14.7 g/dL (13.0-18.0); Mean Corp Hgb Conc. 35.6 g/dL (33.0-37.0); Mean Corpuscular Hgb 30.2 pg (27.0-31.0); Mean Corpuscular Volume 84.8 fL (80.0-94.0); Mean Platelet Volume 11.2 fL (7.4-10.4); Nucleated Red Blood Cells % 0 % (-); Platelet Count 159 10^3/uL (130-400); Red Blood Cell Count 4.87 10^6/uL (4.70-6.10); Red Cell Dist. Width 13.2 % (11.5-14.5); White Blood Cell Count 6.3 10^3/uL (4.8-10.8)
--- NOTE | 2023-10-19 04:46 | PTCARENOTE ---
Pt GAP closed, BG 250, IVF changed.
[2023-10-19] MEDS: D5/0.45%NSS with KCL 20 MEQ 1000 IV (05:01)
[2023-10-19 05:18] LABS: Glucose - Point of Care 257 mg/dl (70-99)
[2023-10-19 06:08] LABS: Glucose - Point of Care 264 mg/dl (70-99)
[2023-10-19 07:23] LABS: Glucose - Point of Care 332 mg/dl (70-99)
--- NOTE | 2023-10-19 08:00 | PTCARENOTE ---
Assumed care of pt from mold shifter RN. Pt AAOx3. NSR on telemetry monitor. HRs 70s-80s. SpO2 96% on room air. VSS. Continuing insulin gtt for DKA/HHS treatment. IVF infusing per order at 150mL/hr. Pt remains NPO at this time. Diabetes management
consult placed. Assessment documented. Pt resting in bed, call mcleod within reach.
[2023-10-19 08:12] LABS: Glucose - Point of Care 299 mg/dl (70-99)
[2023-10-19] MEDS: TRILAFON 16 MG PO ×2 (08:21→19:37)
[2023-10-19] MEDS: LIPITOR 10 MG PO (08:21)
[2023-10-19] MEDS: VITAMIN C 500 MG PO (08:21)
[2023-10-19] MEDS: ATARAX 25 MG PO (08:21)
[2023-10-19] MEDS: ARTANE 5 MG PO (08:21)
[2023-10-19 08:54] LABS: Glycohemoglobin (HgbA1c) 15.7 % (4.0-5.6)
[2023-10-19 09:17] LABS: Glucose - Point of Care 335 mg/dl (70-99)
[2023-10-19 09:34] LABS: Blood Urea Nitrogen 15 mg/dl (9-20); Carbon Dioxide 24 mmol/L (22-30); Chloride 106 mmol/L (98-107); Estimated Creatinine Clearance > 125 ml/min; Glucose 288 mg/dl (70-99); Magnesium 1.9 mg/dl (1.6-2.3); Potassium 4.3 mmol/L (3.5-5.1); Sodium 138 mmol/L (135-145); eGFR > 60.00
--- NOTE | 2023-10-19 10:05 | PN.DE.MGMTRT ---
Addendum entered and electronically signed by Loly Lira NP 10/19/23 10:24:
Insulin infusion and fluids to stop 1 1/2 hours after lantus given.
Original Note:
Insulin Management
- -
10/19/2023 Diabetes Management Consult.
Patient admitted with DKA, glucose on admission 840. PMH HTN, type 2 diabetes for 1 1/2 years and bipolar. A1C 15.7%, cr .7, eGFR >60. Prior to admission was taking metformin 500 mg BID. Was not testing glucose.
Patient is awake alert and oriented able to discuss diabetes plan.
Provided and instructed on use of Contour Next glucose monitor, with fair return demonstration, will need reinforcement. Patient has limited capability, he is willing but has difficulty retaining information.
Patient has been placed on DKA protocol, GAP now closed will transition to oral meds. Will give lantus 14 units now and start glimepiride 2 mg BID first dose now and increase metformin from 500 to 1000 mg BID first dose now. 1800 calorie diet
ordered.
Diabetes History
- -
Type of Diabetes: 2
Pre-Admission Diabetes Regimen
10/18/23 10/18/23 10/18/23
17:07 20:00 20:32
Creatinine 0.9 Cancelled 0.8
10/18/23 10/19/23 10/19/23
22:00 00:57 03:50
Creatinine Cancelled 0.7 0.7
10/19/23
08:43
Creatinine 0.6 L
Lab Results
Hemoglobin A1c 15.7 % (4.0-5.6) H 10/18/23 17:07
Insulin Pump Settings
IP Diabetes Regimen
10/18/23 10/18/23 10/18/23
17:05 17:07 18:32
Glucose 840 H*
POC Glucose > 600 H* > 600 H*
10/18/23 10/18/23 10/18/23
18:34 20:00 20:25
Glucose 722 H* Cancelled
POC Glucose 531 H*
10/18/23 10/18/23 10/18/23
20:32 22:00 22:25
Glucose 539 H* Cancelled
POC Glucose 373 H
10/18/23 10/19/23 10/19/23
23:27 00:22 00:57
Glucose 271 H
POC Glucose 372 H 335 H
10/19/23 10/19/23 10/19/23
01:27 02:34 03:49
Glucose
POC Glucose 242 H 243 H 248 H
10/19/23 10/19/23 10/19/23
03:50 05:07 05:57
Glucose 251 H
POC Glucose 257 H 264 H
10/19/23 10/19/23 10/19/23
07:12 08:01 08:43
Glucose 288 H
POC Glucose 332 H 299 H
10/19/23
09:06
Glucose
POC Glucose 335 H
Patient Education
[2023-10-19 10:41] LABS: Glucose - Point of Care 312 mg/dl (70-99)
--- NOTE | 2023-10-19 10:55 | W.PN.HOSP.TC ---
Today's Communication/Plan
-
Continue with IV insulin protocol for HHS
Plan to begin oral intake
Likely downgrade to GMF
Assessment / Plan
Assessment / Plan
#HHS/DKA -- seems more nonketotic, higher serum glucose, consistent with HHS more than DKA
#Chronic T2DM
-Likely due to dietary indiscretion, states he eats lots of burgers and other foods
-Suspect HHS with higher glucose levels, lower AG of only 14, mildly elevated BHB
-Home regimen: Metformin BID, moderate intensity statin for type 2 diabetes mellitus
-Status post phase 1 of IV insulin protocol, now on phase 2
-Labs showing stable electrolytes, last glucose 283
Plan
-Continue with phase 2 of IV insulin protocol
-Monitor labs for sign of electrolyte depletion, will reduce frequency of lab draws
-Transition to subcu insulin regimen when tolerating oral intake
#Hypertension
-No known history of hypertensive cardiovascular disease
-Home regimen includes HCTZ 12.5 mg and lisinopril 40 mg daily
-Holding antihypertensives and diuretic in context of relative hypovolemic state
-Plan to resume antihypertensive regimen while here if necessary
DVT prophylaxis: Lovenox
Diet: N.p.o.
CODE STATUS: Full code
Anticipated Discharge: 24 - 48 hours
Subjective/Interval History
-
Date of Service: October 19, 2023
Objective Data
-
Labs:
Laboratory Results
10/19/23 10/19/23 10/19/23
00:57 03:50 08:00
WBC 6.3
Hgb 14.7
Hct 41.3
Plt Count 159 D
Sodium 141 D 139 Pending
Potassium 3.9 4.1 Pending
Chloride 106 107 Pending
Carbon Dioxide 27 25 Pending
BUN 18 18 Pending
Creatinine 0.7 0.7 Pending
Glucose 271 H 251 H Pending
Calcium 9.5 9.1 Pending
10/19/23 10/19/23 10/19/23
08:43 12:00 16:00
WBC
Hgb
Hct
Plt Count
Sodium 138 Pending Pending
Potassium 4.3 Pending Pending
Chloride 106 Pending Pending
Carbon Dioxide 24 Pending Pending
BUN 15 Pending Pending
Creatinine 0.6 L Pending Pending
Glucose 288 H Pending Pending
Calcium 9.0 Pending Pending
10/19/23
20:00
WBC
Hgb
Hct
Plt Count
Sodium Pending
Potassium Pending
Chloride Pending
Carbon Dioxide Pending
BUN Pending
Creatinine Pending
Glucose Pending
Calcium Pending
Vital Signs:
Vital Signs
Temp Pulse Resp BP Pulse Ox
98.3 F 82 21 124/92 96
10/19/23 07:25 10/19/23 08:30 10/19/23 08:30 10/19/23 08:02 10/19/23 08:30
I&O
10/18/23 10/19/23 10/20/23
06:59 06:59 06:59
Intake Total 2597 / 2752 564 / 564
Output Total 2250 / 2450 425 / 425
Balance 347 / 302 139 / 139
[2023-10-19 11:19] LABS: Glucose - Point of Care 293 mg/dl (70-99)
[2023-10-19] MEDS: LANTUS 0.14 UNITS SC (11:27)
[2023-10-19] MEDS: GLUCOPHAGE 1000 MG PO ×2 (11:27→17:29)
[2023-10-19] MEDS: AMARYL 2 MG PO ×2 (11:27→17:28)
--- NOTE | 2023-10-19 11:31 | CON.INTV ---
Consultation
Consultation Request
Date/Time Consultation Requested: 10/19/2023
Date/Time Consultation Performed: 10/19/2023
Requesting Provider: Dr. Posada
Performing Provider: Dr. Marty Fleming
Reason for Consultation: hyperglycemic crisis-HHNK/DKA
Medical History
-
History of Present Illness:
58-year-old man with past medical history of type 2 diabetes poorly controlled, hypertension, bipolar disorder, status post bilateral knee replacement, status post inguinal repair presented to the emergency room complaining of abdominal pain.
Reports polydipsia and polyuria over the last few days with associated fatigue. Denied any chest pain, palpitation, lightheadedness. Denies fevers or chills. Denies burning with urination, diarrhea. Patient currently only on metformin for type 2
diabetes.
He was found to be significantly hyperglycemic with anion gap metabolic acidosis. Started on insulin drip. Transferred to the critical care unit for further care.
This morning relatively asymptomatic. Hungry and would like to eat something. Denies any nausea or vomiting. Denies any acute complaints.
He states that he lives by himself. It is difficult for him to eat healthy food.
Past Medical History
Past Medical History: Other (See assessment and plan)
Social History
Tobacco: Non-smoker
Alcohol: None
Drug: None
Personal: Single
Living: Alone
Employment: Not Employed
Family History
Family History: Reviewed & Not Pertinent
Allergies / Home Medications
Allergies
Allergy/AdvReac Type Severity Reaction Status Date / Time
No Known Allergies Allergy Verified 10/18/23 16:56
Home Medications
�Medication �Instructions �Recorded �Confirmed �Last Taken �Type
ascorbic acid (vitamin C) 500 mg 1,000 mg PO DAILY Supplement 08/31/22 10/18/23 10/18/23 History
tablet (Vitamin C)
atorvastatin 10 mg tablet 10 mg PO DAILY High Cholesterol 08/31/22 10/18/23 10/18/23 History
hydroxyzine pamoate 25 mg capsule 25 mg PO DAILY anxiety 08/31/22 10/18/23 10/18/23 History
metformin 500 mg tablet 500 mg PO BID@0800,1700 Diabetes 08/31/22 10/18/23 10/18/23 History
multivitamin 1 tab PO DAILY Supplement 08/31/22 10/18/23 10/18/23 History
perphenazine 8 mg tablet 16 mg PO DAILY distress 08/31/22 10/18/23 10/18/23 History
trihexyphenidyl 5 mg tablet 5 mg PO NOON PRN restlessness 08/31/22 10/18/23 05/20/23 08:00 History
hydrochlorothiazide 12.5 mg tablet 12.5 mg PO DAILY Blood Pressure 10/18/23 10/18/23 10/18/23 History
lisinopril 40 mg tablet 40 mg PO DAILY Blood Pressure 10/18/23 10/18/23 10/18/23 History
trihexyphenidyl 5 mg tablet 5 mg PO DAILY EPS 10/18/23 10/18/23 10/18/23 History
Review of Systems
-
History Source: Patient
All other systems: Negative unless noted
Vitals / Labs / Diagnostic Testing
Vital Signs
Temp Pulse Resp BP Pulse Ox
98.8 F 82 21 124/92 96
10/19/23 11:20 10/19/23 08:30 10/19/23 08:30 10/19/23 08:02 10/19/23 08:30
Lab Data
10/19/23 03:50
Laboratory Results
10/18/23 10/18/23 10/18/23
20:00 20:32 22:00
PT 13.0
INR 0.99
APTT 23.2 L
pH Cancelled Cancelled
pCO2 Cancelled Cancelled
pO2 Cancelled Cancelled
HCO3 Cancelled Cancelled
O2 Delivery Level Cancelled Cancelled
Diagnostic Testing:
Physical Exam
-
HEENT: Normocephalic
Cardiovascular: S1/S2 and Regular Rhythm
Respiratory: Clear and Non-Labored Respirations
GI: Distended (Obese) and Non Tender
Neurology: Awake, Oriented, AO x 3 and No Motor Deficits
Skin: Warm
General: Comfortable
Assessment
-
Hyperglycemic crisis HHNK/DKA.
Anion gap metabolic acidosis/positive beta hydroxybutyrate
History of type 2 diabetes-poorly controlled-hemoglobin A1c is 15
Morbid obesity
Hypertension
Bipolar disorder
Assessment and plan:
Patient currently on an insulin drip: Continue per protocol. Will titrate as necessary.
Anion gap has closed.
Blood sugar in the 200s. This was the patient has been living likely in the outpatient setting. Hemoglobin A1c is 15.
Trigger for hyperglycemic crisis likely poor compliance/under therapy/poor dietary choices.
There is no evidence for infection or acute coronary syndrome.
EKG without ST-T abnormality.
Patient improved clinically 10/19/2023.
-
Continue insulin drip for now.
Likely will be transition to subcu insulin, diabetes nurse practitioner has been consulted. Case has been discussed.
It is unclear to me whether this patient will be able to self administer insulin at home. Compliance has not been great.
-
May need psychiatric social worker help
-
To be transition later to non-IV regimen. Insulin drip will be discontinued later today.
IV fluids will be discontinued later today
Diet will be advanced.
-
If patient able to come off the insulin drip then we will transfer to [facility].
If transfer out of the ICU, critical care team will sign off.
-
Critical care statement: A total of 31minutes of critical care time was provided for this patient today. This includes management of unstable vital signs, evaluation of the patient at bedside, reviewing the patient's pertinent medical records
including ventilator settings, arterial blood gases, radiographs, microbiology, laboratory evaluations and discussion with primary team, critical care nursing, and respiratory therapy.
[2023-10-19 12:27] LABS: Glucose - Point of Care 255 mg/dl (70-99)
--- NOTE | 2023-10-19 12:43 | CM ---
CM following re: discharge planning.
Discussed in Rounds, reviewed pt's chart, met with pt.
Pt is a 58 year old male, admitted with primary dx of DKA.
The patient resides alone in a second floor apartment with his two cats. There is one step to enter and a flight of stairs to apartment. The patient's [id number] is currently caring for the cats while the patient is in the hospital. The
patient reports no DME/VN/SNF in the past. The patient reports being current with [facility]. Pt described himself as independent in all areas [employer], drives. Pt stated he drove here and will drive back home at discharge.
PCP: Preeti Self
Pharmacy: [facility].
D/C plan: home with anticipated no after care VN needs. Pt will resume outpatient mental health services at [facility]
CM will follow with discharge plan updates as hospitalization progresses
--- NOTE | 2023-10-19 13:07 | PTCARENOTE ---
Insulin gtt and IVF discontinued. Diet ordered. See MAR for medication administration as ordered by Diabetes team. Assessment unchanged. Plan for possible downgrade today.
[2023-10-19] MEDS: D5/0.45%NSS with KCL 20 MEQ IV (13:22)
--- NOTE | 2023-10-19 16:00 | PTCARENOTE ---
Pt downgraded to IMU level of care. Awaiting bed at this time. Assessment unchanged.
--- NOTE | 2023-10-19 16:12 | W.PN.UPDATE ---
Update Note
Progress Note Update
Patient has been transitioned off insulin drip.
Tolerated diet
Sitting out of bed
Hemodynamically stable
Afebrile
Critical care team will sign off.
Transferred to telemetry.
[2023-10-19 17:02] LABS: Glucose - Point of Care 221 mg/dl (70-99)
[2023-10-19] MEDS: LOVENOX 40 MG SC (17:29)
[2023-10-19] MEDS: ZESTRIL 40 MG PO (18:30)
[2023-10-19 21:12] LABS: Blood Urea Nitrogen 16 mg/dl (9-20); Calcium 9.9 mg/dl (8.4-10.2); Carbon Dioxide 21 mmol/L (22-30); Chloride 103 mmol/L (98-107); Estimated Creatinine Clearance > 125 ml/min; Glucose 227 mg/dl (70-99); Potassium 4.3 mmol/L (3.5-5.1); Sodium 135 mmol/L (135-145); eGFR > 60.00
[2023-10-19 21:31] LABS: Glucose - Point of Care 236 mg/dl (70-99)
[2023-10-20 03:30] VITALS: BP 163/82
[2023-10-20 06:00] VITALS: BMI 44.7
[2023-10-20 07:27] LABS: % Basophils 0.5 % (0-2); % Eosinophils 7.3 % (0-6); % Immature Granulocytes 0.2 % (0-0.5); % Lymphocytes 36.3 % (20.5-51.1); % Monocytes 8.5 % (1.7-9.3); % Neutrophils 47.2 % (42.2-75.2); Absolute Eosinophils 0.4 10^3/uL (0-0.7); Absolute Lymphocytes 2.1 10^3/uL (1.2-3.4); Absolute Monocytes 0.5 10^3/uL (0.1-0.6); Absolute Neutrophils 2.8 10^3/uL (1.4-6.5); Hematocrit 41.5 % (39.0-52.0); Hemoglobin 14.7 g/dL (13.0-18.0); Mean Corp Hgb Conc. 35.4 g/dL (33.0-37.0); Mean Corpuscular Hgb 29.3 pg (27.0-31.0); Mean Corpuscular Volume 82.8 fL (80.0-94.0); Mean Platelet Volume 10.7 fL (7.4-10.4); Nucleated Red Blood Cells % 0 % (-); Platelet Count 160 10^3/uL (130-400); Red Blood Cell Count 5.01 10^6/uL (4.70-6.10); Red Cell Dist. Width 13.4 % (11.5-14.5); White Blood Cell Count 5.9 10^3/uL (4.8-10.8)
[2023-10-20 07:30] VITALS: BP 138/87
[2023-10-20 07:34] LABS: Glucose - Point of Care 261 mg/dl (70-99)
[2023-10-20 07:50] LABS: Blood Urea Nitrogen 14 mg/dl (9-20); Calcium 9.2 mg/dl (8.4-10.2); Carbon Dioxide 22 mmol/L (22-30); Chloride 103 mmol/L (98-107); Estimated Creatinine Clearance > 125 ml/min; Glucose 260 mg/dl (70-99); HDL Cholesterol 21 mg/dl; Potassium 4.5 mmol/L (3.5-5.1); Sodium 134 mmol/L (135-145); Total Cholesterol 144 mg/dl (50-199); eGFR > 60.00
[2023-10-20 07:57] LABS: Triglyceride > 400 mg/dl (10-149)
[2023-10-20 08:22] LABS: LDL Cholesterol, Direct 60 mg/dl
[2023-10-20] MEDS: AMARYL 4 MG PO (09:20)
[2023-10-20] MEDS: ORETIC 12.5 MG PO (09:22)
[2023-10-20] MEDS: ARTANE 5 MG PO (09:22)
[2023-10-20] MEDS: LIPITOR 40 MG PO (09:24)
[2023-10-20] MEDS: VITAMIN C 500 MG PO (09:25)
[2023-10-20] MEDS: GLUCOPHAGE 1000 MG PO (09:25)
[2023-10-20] MEDS: TRILAFON 16 MG PO (09:26)
[2023-10-20] MEDS: ZESTRIL 40 MG PO (09:27)
[2023-10-20] MEDS: ATARAX 25 MG PO (09:27)
[2023-10-20] MEDS: AMARYL PO (09:33)
--- NOTE | 2023-10-20 11:00 | W.PN.HOSP.TC ---
Addendum entered and electronically signed by Isaiah Posada DO 10/20/23 11:24:
Note: Patient not currently on Lantus 14 units standing dose. Was provided yesterday for bridging following his HHNK. He is unable to comply with insulin regimen per diabetic consult. Will discharge on oral regimen consisting of glimepiride,
metformin, Januvia. Test trips provided. Hypoglycemic precautions/education while on glimepiride
Original Note:
Today's Communication/Plan
-
Start fenofibrate for hypertriglyceridemia
Discharge
Assessment / Plan
Assessment / Plan
#HHS/DKA -- seems more nonketotic, higher serum glucose, consistent with HHS more than DKA
#Chronic T2DM
-Likely due to dietary indiscretion, states he eats lots of burgers and other foods
-Suspect HHS with higher glucose levels, lower AG of only 14, mildly elevated BHB
-Status post IV insulin protocol, has been transitioned to subcu insulin and oral agent
-Currently on Lantus 14 units QD, glimepiride 4 mg BID, metformin 1 g BID, Januvia 100 mg QD
-Most recent blood glucose levels have been in the mid 200s
-Seems motivated to begin lifestyle changes
-Plan to DC on current regimen with close outpatient follow-up
#Hypertension
-No known history of hypertensive cardiovascular disease
-Home regimen includes HCTZ 12.5 mg and lisinopril 40 mg daily
-Blood pressure currently slightly high, expect it to improve when out of hospital
#Dyslipidemia
-Lipid panel showed LDL of only 60, total cholesterol 144, TG >400
-Was previously on moderate intensity statin, escalated to high intensity with A1c of 15%
-Will start fenofibrate for elevated triglyceride levels
-Will need close follow-up with PCP
DVT prophylaxis: Lovenox
Diet: Carbohydrate controlled
CODE STATUS: Full code
Anticipated Discharge: Today
Subjective/Interval History
-
Date of Service: October 20, 2023
Patient seen and examined at the bedside. No acute events reported overnight.
Blood glucose better controlled. Most recently with glucose in the low 200s to mid 200s. He does question if diet and exercise will help improve his glucose to the point of not needing as many medications. I did advise him with time and
improvement of his A1c that he may be able to come off some medications, have a lower insulin requirements. He seems motivated to make lifestyle changes.
He denies any acute complaints. No chest pain, shortness of breath, fevers or chills, nausea, vomiting, diarrhea, urinary issues, paresthesias or weakness, bleeding or bruising.
Objective Data
-
Labs:
Laboratory Results
10/20/23
05:58
WBC 5.9
Hgb 14.7
Hct 41.5
Plt Count 160
Sodium 134 L
Potassium 4.5
Chloride 103
Carbon Dioxide 22
BUN 14
Creatinine 0.6 L
Glucose 260 H
Calcium 9.2
Vital Signs:
Vital Signs
Temp Pulse Resp BP Pulse Ox
98.3 F 82 18 138/87 96
10/20/23 07:30 10/20/23 07:30 10/20/23 07:30 10/20/23 07:30 10/20/23 07:30
I&O
10/19/23 10/20/23 10/21/23
06:59 06:59 06:59
Intake Total 2597 / 2752 1976 / 1976
Output Total 2250 / 2450 825 / 825
Balance 347 / 302 1152 / 1152
Review of Systems
-
History Source: Patient
All other systems: Reviewed and negative
Physical Exam
-
General: No Apparent Distress, Comfortable and Morbidly Obese
HEENT: Normocephalic, Atraumatic and Moist Mucous Membranes
Respiratory: Clear to Auscultation and Non Labored Respirations; Negative Wheezes, Rales or Rhonchi
Cardiac: Regular Rhythm and S1/S2; Negative Murmur, Rub, JVD or Gallop
GI: Soft, Nontender, Nondistended and Normal Bowel Sounds
Musculoskeletal: No Clubbing, No Cyanosis and No Edema
Skin: Warm and Dry; Negative Rash
Neuro: AO x 3, Nonfocal/Grossly Intact and Central Nerve's Intact
Data Reviewed
-
Labs: Labs Reviewed by me and Discussed with Patient
[2023-10-20 11:10] VITALS: BP 151/92
--- NOTE | 2023-10-20 11:24 | W.DCSUMMARY ---
Discharge Summary
Discharge Data
Date of Admission: 10/18/23
Date of Discharge: 10/20/23
-
Pending Results: No
Hospital Course
58-year-old male with type 2 diabetes mellitus, hypertension, schizoaffective/bipolar disorder that presented with polyuria and polydipsia. Initial glucose >800, mildly elevated beta hydroxybutyrate, anion gap 14. Diagnosed with DKA/HHNK, higher
suspicion for nonketotic state based off of his labs and clinical presentation. Was started on IV insulin protocol and admitted to the ICU. Successfully transitioned to oral regimen. 1 bridging dose of Lantus 14 units provided following
resolution of HHNK. He was evaluated by the diabetic nursing consult to stated he would be a poor candidate for long-term insulin usage based off of compliance issues. He had an A1c of 15% while in hospital. With his regimen of metformin 1 g
twice daily, Januvia 100 mg daily, glimepiride 4 mg twice daily his blood glucose was consistently in the mid 200s per Accu-Cheks. Avoided sliding scale insulin to assess blood glucose more accurately in the home setting.
Was discharged on 10/20/2023 with follow-up planned with endocrinology and PCP. He was provided with testing strips and glucometer. Hypoglycemic precautions advised on glimepiride.
Discharge Plan
-
Patient Disposition: Home (Routine Discharge)
Discharge Diagnosis/Procedures: Hyperglycemic hyperosmotic nonketotic state
Type 2 diabetes mellitus
Hypertriglyceridemia
Condition: Good
Diet: Low Fat and Diabetic, Carb Controlled
Activity: As tolerated
Additional Activity: Begin aerobic exercise with goal 30 minutes/day 5 times per week. This may include walking, bicycling, any activity that increases heart rate. Start slow and build intensity over time
Driving Restrictions: As prior to admission
Bathing Restrictions: None
Blood Work: None, follow-up with family doctor and clinic coordinator for standard maintenance labs
Others Tests: None
Activity Restrictions/Additional Instructions:
If you develop recurrence of the symptoms of brought you to the come back to the emergency department for reassessment.
Begin aerobic exercise with goal of daily exercise for 30 minutes
Please see attachments for dietary education with diabetes
Schedule follow-up appointment with your primary care doctor and endocrinology referral within 7 to 10 days of discharge
Instructions: Carb counting for adults with diabetes, Diabetes and diet
Referrals:
Anish Cano PA-C [Non-Admitting Privileges] - in two weeks
Preeti Markham DO [Family Provider] -
Additional Discharge Medication Instructions: Start glimepiride 4 mg twice daily
Start metformin 1000 mg twice daily
Start Januvia 100 mg daily
Start fenofibrate 48 mg daily
Increase atorvastatin to 40 mg nightly
Prescriptions:
New
(DME) Contour Next Test Strips Strip
Qty: 60 0RF
Rx Instructions:
Pt Testing 2 times a day
(DME) lancets [Microlet Lancet] Misc
Qty: 60 0RF
Rx Instructions:
Pt testing 2 times a day
metformin 1,000 mg Tablet
1,000 mg PO BIDWMEAL Qty: 60 0RF
Januvia 100 mg Tablet
100 mg PO DAILY Qty: 30 0RF
glimepiride 4 mg Tablet
4 mg PO BID Qty: 60 0RF
glimepiride 2 mg Tablet
4 mg PO BID@0800,1630 30 Days Qty: 120 0RF
atorvastatin 40 mg Tablet
40 mg PO HS 30 Days Qty: 30 0RF
metformin 1,000 mg Tablet
1,000 mg PO BID@0800,1700 30 Days Qty: 60 0RF
Januvia 100 mg Tablet
100 mg PO DAILY 30 Days Qty: 30 0RF
fenofibrate nanocrystallized 48 mg Tablet
48 mg PO DAILY 30 Days Qty: 30 0RF
Continued
trihexyphenidyl 5 mg tablet
5 mg PO NOON PRN (Reason: restlessness)
perphenazine 8 mg tablet
16 mg PO DAILY
hydroxyzine pamoate 25 mg capsule
25 mg PO DAILY
multivitamin Tablet
1 tab PO DAILY
ascorbic acid (vitamin C) [Vitamin C] 500 mg Tablet
1,000 mg PO DAILY
lisinopril 40 mg tablet
40 mg PO DAILY
hydrochlorothiazide 12.5 mg tablet
12.5 mg PO DAILY
trihexyphenidyl 5 mg Tablet
5 mg PO DAILY
Discontinued
metformin 500 mg tablet
500 mg PO BID@0800,1700
atorvastatin 10 mg tablet
10 mg PO DAILY
Discharge Orders:
Discharge Patient (As Directed); Ordered 10/20/23
Ordered By: Isaiah Posada
Discharge Date and Time
Print Language: TAJIK
[2023-10-20 11:36] LABS: Glucose - Point of Care 305 mg/dl (70-99)
--- NOTE | 2023-10-20 11:55 | CM ---
CM reviewed chart, patient for discharge today. Patient seen bedside, reports no needs to CM at this time. Patient reports he has transportation home. IMM reviewed, signed, placed in chart. CM will continue to follow for all discharge planning needs.
Plan; home no needs.
[2023-10-20] MEDS: JANUVIA 100 MG PO (13:07)
[2023-10-20] MEDS: TRICOR 48 MG PO (13:07)
== END 2023-10-20 14:02 | disposition home or self-care (01) | DRG 638 ==
LOC: 4 WEST ACU 18:46
PROVIDERS: Nurse Practitioner Family; Physician Assistant; ADMITTING PHYSICIAN Internal Medicine; CONSULT PHYSICIAN Internal Medicine Critical Care Medicine; EMERGENCY PHYSICIAN Emergency Medicine; FAMILY PHYSICIAN Family Medicine
DX: E11.10 Type 2 diabetes mellitus with ketoacidosis without coma (principal); Z68.41 Body mass index [BMI] 40.0-44.9, adult; Z87.891 Personal history of nicotine dependence; F31.9 Bipolar disorder, unspecified; I10 Essential (primary) hypertension; E78.1 Pure hyperglyceridemia; E66.01 Morbid (severe) obesity due to excess calories
CPT/HCPCS: 71045; 80048; 80053; 80061; 81003; 82010; 82805; 82947; 82962; 83036; 83721; 83735; 84100; 84484; 85025; 85610; 85730; 93005; 96361; 96365; 99291

== ENCOUNTER 2023-10-23 15:15 | Inpatient (IN) | payer MEDICARE, SELFPAY ==
[2023-10-23] VITALS (58 sets, daily range): BP systolic 61–144; BP diastolic 34–125; BMI 42.0
[2023-10-23 10:36] LABS: Glucose - Point of Care 461 mg/dl (70-99)
[2023-10-23] MEDS: NSS 1000 IV ×3 (11:42→15:49)
--- NOTE | 2023-10-23 11:50 | ED.GENMED ---
History of Present Illness
General
Chief Complaint: Blood Sugar Problem
Source: patient
Exam Limitations: none
Time Seen by Provider: 10/23/23 11:16
Nursing documentation reviewed up to this point in time: agreed with
History of Present Illness
History of Present Illness:
Patient with history of type 2 diabetes, discharge from the hospital 2 days ago, after being admitted and treated for hyperglycemia and started on new oral medications, presents to ED secondary to 'not feeling well' and not being able to take his
medications, as new medications are upsetting his stomach. Patient has had multiple vomiting episodes since being home. Patient's blood sugar has been reading high at home. Denies fever or chills. Denies chest pain or shortness of breath.
Denies coughing. Denies diarrhea.
Past History
Past History
ED Past Medical History: HTN, NIDDM and Psychiatric
ED Past Surgical History: Orthopedic (Bilateral knee replacement) and Other (Inguinal herniorrhaphy)
Social History
Tobacco: Former smoker
Alcohol: None
Drug: None
Personal:
Living: alone
Employment: Disabled
Family History
Family History: Other (Noncontributory)
Review of Systems
Review of Systems
Allergies reviewed?: Yes
All Other Systems: ROS reviewed and negative except as documented in HPI and ROS
Constitutional: Reports no symptoms; Denies fever or chills
Respiratory: Reports no symptoms
Cardiac: Reports no symptoms
ABD/GI: Reports abdominal pain, nausea, vomiting and diarrhea
Musculoskeletal: Reports no symptoms
Skin: Reports no symptoms
Neurological: Reports weakness
Phy Exam
Physical Exam
Physical Exam:
Physical Exam
General: mild distress, not acutely ill. afebrile
Head: nc/at. eomi
Neck: supple. no meningeal signs.
Heart: s1/s2 regular rate and rhythm, no murmur. equal radial pulses.
Lungs: no acute respiratory distress. clear bilaterally
Abdomen: normal bowel sounds. diffusely mildly tender with mild distention
Neuro: alert and oriented. no focal neurological deficits
Skin: no rash
Psychiatric: well kept. interactive and cooperative
Extremities: no edema. no calf tenderness.
Course
Orders/Labs/Results
Orders:
Orders
10/23/23 11:20
Electrocardiogram (*1) Urgent
Reason for Study: QTc Monitoring
EKG- Treatment ONCE
10/23/23 11:40
Acetone [B-Hydroxybutyrate] Urgent
Complete Blood Count/No Diff Urgent
Comprehensive Metabolic Panel Urgent
Magnesium Urgent
Venous Blood Gas Urgent
%Oxygen/Room Air: 96
10/23/23 11:42
0.9% Sodium Chloride 1000 ml [Nss] 1,000 ml IV BOLUS
0.9% Sodium Chloride 1000 ml [Nss] 1,000 ml IV BOLUS
0.9% Sodium Chloride 1000 ml [Nss] 1,000 ml IV BOLUS
Insulin Human Regular [Novolin R] 10 units IV NOW STA
10/23/23 11:44
Lactic Acid Urgent
10/23/23 11:53
CR Obstruct Series W/pa Chest Urgent
Comment:
Reason For Exam: abd pain w distention
10/23/23 13:48
Urinalysis Reflex To Culture Urgent
Date Specimen was Collected: 10/23/23
Time Specimen was Collected: 13:46
Urine Microscopic Reflex Cult Urgent
Urine Culture Urgent
BETI Source: U
Specimen Description:
Date Specimen was Collected: 10/23/23
Time Specimen was Collected: 13:46
10/23/23 13:59
Ondansetron Injectable [Zofran] 4 mg IV NOW STA
10/23/23 14:13
Transfer Patient As Directed
Transfer to: ICU
Patient Condition: Fair
Comment: DKA
10/23/23 14:14
Admit/Transfer Patient As Directed
Co-Sign Provider:
Level of Care: Inpatient admission
Assign to:: ICU
Physician / Group: Hospitalist
Diagnosis: DKA
Patient Condition: Fair
Reason for Hospitalization: DKA Management
Expected length of stay greater than two midnights?: Yes
ELOS- Estimated Length of Stay in days: 3
I certify the patient meets the requirements for IP care: Yes
PRN Pain Medication Management As Directed
May give lesser potent ordered pain med per pt: Yes
preference::
Protocol:: Medication orders for pain may be administered in a
manner that supports deferring to patient preference
when the pt is:
- Requesting an ordered lesser potent pain medication.
Least to most potent pain medications are defined
as: acetaminophen < NSAID < tramadol < opioids
(morphine, oxycodone, hydromorphone).
- Requesting a lesser dose of the same medication IF
ORDERED.
- Requesting a less intrusive route of administration
if both routes are prescribed by the provider (PO <
IV).
10/23/23 14:22
Code Status As Directed
Resuscitation Status: Full Code
10/23/23 14:23
Activity As Directed
Activity Level: Out of Bed-Early Mobility
Bedside Glucose Monitoring As Directed
Frequency: Q1H
Intake/ Output As Directed
Frequency: Per unit guidelines
Notify MD As Directed
Notify physician if: Nurse to contact provider when glucose reaches 250 to obtain orders for D5 0.45 NaCl
Vital Signs As Directed
Frequency: Per unit guidelines
10/23/23 14:28
Reg Insulin 100 Units/100 ml [Novolin R Insulin Infusion] 100 units in 100 ml IV NOW
10/23/23 14:55
Activity As Directed
Activity Level: Out of Bed-Early Mobility
Bedside Glucose Monitoring As Directed
Frequency: Q1H
Intake/ Output As Directed
Frequency: Per unit guidelines
Notify MD As Directed
Notify physician if: Nurse to contact provider when glucose reaches 250 to obtain orders for D5 0.45 NaCl
Vital Signs As Directed
Frequency: Per unit guidelines
10/23/23 15:00
0.45% Sodium Chloride 1000 ml [0.45%NaCl] 1,000 ml IV 200 mls/hr
KCl 20 Meq/0.9%Sodchl 1000 ml [NSS with KCL 20 MEQ] 20 meq in 1,000 ml IV 250 mls/hr
KCl 20 Meq/0.9%Sodchl 1000 ml [NSS with KCL 20 MEQ] 20 meq in 1,000 ml IV 250 mls/hr
Reg Insulin 100 Units/100 ml [Novolin R Insulin Infusion] 100 units in 100 ml IV PER PROTOCOL
Initial dose in units/hr, then titrate:: 13
10/23/23 15:07
CT Abd/pel (oral only)-DH Only Urgent
Comment:
Reason For Exam: abdominal pain
Iohexol [Omnipaque] See Protocol PO NOW STA
10/23/23 15:37
Basic Metabolic Panel Q2
10/23/23 16:37
Heparin 5,000 units SC Q8
Perphenazine [Trilafon] 16 mg PO DAILY
Trihexyphenidyl [Artane] 5 mg PO NOON PRN
10/23/23 16:37
DX Deep Vein Thrombosis Video Routine
10/23/23 18:23
Basic Metabolic Panel Q2
10/23/23 20:13
Basic Metabolic Panel Q2
10/23/23 22:00
Atorvastatin [Lipitor] 40 mg PO HS
10/24/23 05:36
Complete Blood Count/With Diff IN AM
10/24/23 08:00
Fenofibrate [Tricor] 48 mg PO DAILY
HydrOXYZINE [Atarax] 25 mg PO DAILY
Trihexyphenidyl [Artane] 5 mg PO DAILY
Abnormal Lab Results
10/23/23 10/23/23 10/23/23
10:35 11:40 11:55
MPV 11.2 H fL
(7.4-10.4)
VBG pH 7.27 L
(7.32-7.43)
VBG HCO3 17.9 L mmol/L
(22-27)
Sodium 130 L mmol/L
(135-145)
Chloride 97 L mmol/L
(98-107)
Carbon Dioxide 16 L mmol/L
(22-30)
BUN 44 H mg/dl
(9-20)
Creatinine 3.1 H mg/dL
(0.7-1.3)
Glucose 499 H* mg/dl
(70-99)
Total Bilirubin 1.7 H mg/dl
(0.2-1.3)
ALT 53 H U/L
(0-50)
Total Protein 5.9 L g/dl
(6.3-8.2)
Urine Nitrite (Reflex)
Urine Bilirubin
Leukocyte Esterase Rfl
Urine Bacteria (Reflex)
Urine Glucose
B-Hydroxybutyrate 0.42 H mmol/L
(0.02-0.27)
POC Glucose 461 H* mg/dl 441 H mg/dl
(70-99) (70-99)
10/23/23 10/23/23 10/23/23
12:43 13:48 13:53
MPV
VBG pH
VBG HCO3
Sodium
Chloride
Carbon Dioxide
BUN
Creatinine
Glucose
Total Bilirubin
ALT
Total Protein
Urine Nitrite (Reflex) Positive A
(Negative)
Urine Bilirubin 1+ A
(Negative)
Leukocyte Esterase Rfl Trace A
(Negative)
Urine Bacteria (Reflex) Moderate A
(Negative)
Urine Glucose 2+ A
(Negative)
B-Hydroxybutyrate
POC Glucose 378 H mg/dl 374 H mg/dl
(70-99) (70-99)
10/23/23 11:40
10/23/23 11:40
Vital Signs
Initial and Last Documented VS:
Initial Vital Signs
Temp Pulse Resp BP Pulse Ox
97.2 F 107 18 90/58 96
10/23/23 10:31 10/23/23 10:31 10/23/23 10:31 10/23/23 10:31 10/23/23 10:31
Last Documented Vital Signs
Temp Pulse Resp BP Pulse Ox
99.2 F 102 15 109/64 93
10/24/23 04:09 10/24/23 05:15 10/24/23 05:15 10/24/23 05:00 10/24/23 05:15
MDM/Problems Addressed
MDM/Problems Addressed:
Hyperglycemia noted, along with ARF, likely multifactorial. As patient unable to tolerate oral DM meds, may need to re-adjust his medications.
X-ray: SBO. Discussed with oncall surgery, who recommends obtaining CT abd/pel.
*EKG
Interpreted by ED Provider?: Yes
EKG Intrepretation Date: 10/23/23
Heart Rate: 98
Rate: normal
Rhythm: sinus
[place]: normal axis
*Critical Care Note
Total Time (30-74mins, 75-104mins- exclusive of procedures): Not Applicable
ED Attending Note
-
Portions of this chart may have been created with voice recognition software.� Occasional wrong word or��sound alike� substitutions may have occurred due to the inherent limitations of voice recognition software.
Discharge Plan
Departure
Patient Disposition: Admit
Date of Disposition: 10/23/23
Time of Disposition: 13:35
Admit to: Telemetry
Presentation/result/management discussed w/ accepting MD/DO: Hospitalist
Discharge Problem:
Acute renal failure, Hyperglycemia
Interventions
Interventions:
*Risk Screen - Suicide Last Done: 10/23/23 16:48
*General Assessment Last Done: 10/23/23 12:01
*Neglect/Abuse Screening Last Done: 10/23/23 12:01
*ED COVID-19 Vaccine History Last Done: 10/23/23 16:55
*Nursing Disposition Last Done: 10/23/23 16:14
ED- Neurological Assessment Last Done: 10/23/23 12:01
Discharge Date and Time
Discharge Date/Time: 10/23/23 16:15
[2023-10-23 11:53] LABS: Hemoglobin 15.3 g/dL (13.0-18.0); Mean Corp Hgb Conc. 35.6 g/dL (33.0-37.0); Mean Corpuscular Volume 84.3 fL (80.0-94.0); Mean Platelet Volume 11.2 fL (7.4-10.4); Platelet Count 231 10^3/uL (130-400); Red Cell Dist. Width 13.6 % (11.5-14.5); White Blood Cell Count 9.5 10^3/uL (4.8-10.8)
[2023-10-23 11:55] LABS: Venous Blood Gas B.E. -8.4 mmol/L (-4 to +4); Venous Blood Gas HCO3 17.9 mmol/L (22-27); Venous Blood Gas O2 Sat % 77.3 %; Venous Blood Gas pCO2 39 mmHg (35-48); Venous Blood Gas pH 7.27 (7.32-7.43); Venous Blood Gas pO2 48 mmHg (30-50)
[2023-10-23 11:56] LABS: Glucose - Point of Care 441 mg/dl (70-99)
[2023-10-23] MEDS: NOVOLIN R 10 UNITS IV (11:56)
[2023-10-23 12:05] LABS: Lactic Acid 1.6 mmol/L (0.7-2.0)
[2023-10-23 12:25] LABS: ALT (SGPT) 53 U/L (0-50); AST (SGOT) 29 U/L (17-59); Albumin 3.6 g/dl (3.5-5.0); Alkaline Phosphatase 99 U/L (38-126); B-Hydroxybutyrate 0.42 mmol/L (0.02-0.27); Blood Urea Nitrogen 44 mg/dl (9-20); Calcium 9.4 mg/dl (8.4-10.2); Carbon Dioxide 16 mmol/L (22-30); Chloride 97 mmol/L (98-107); Glucose 499 mg/dl (70-99); Magnesium 1.7 mg/dl (1.6-2.3); Potassium 4.6 mmol/L (3.5-5.1); Sodium 130 mmol/L (135-145); Total Bilirubin 1.7 mg/dl (0.2-1.3); Total Protein 5.9 g/dl (6.3-8.2); eGFR 22.17
[2023-10-23 12:45] LABS: Glucose - Point of Care 378 mg/dl (70-99)
[2023-10-23 13:55] LABS: Glucose - Point of Care 374 mg/dl (70-99)
[2023-10-23 13:59] LABS: Urine Albumin Trace (Neg - Trace); Urine Bilirubin 1+ (Negative); Urine Character Slightly Cloudy (Clear); Urine Color Amber; Urine Glucose 2+ (Negative); Urine Ketone Negative (Negative); Urine Leukocyte Trace (Negative); Urine Nitrite Positive (Negative); Urine Occult Blood Negative (Negative); Urine Urobilinogen Negative (Neg - 1+)
[2023-10-23] MEDS: ZOFRAN 4 MG IV (14:01)
[2023-10-23 14:29] LABS: Urine Bacteria Moderate (Negative); Urine Red Blood Cell None Seen /HPF (0-2)
[2023-10-23] MEDS: OMNIPAQUE 50 ML PO (15:18)
[2023-10-23] MEDS: NSS with KCL 20 MEQ 1000 IV (15:33)
[2023-10-23 15:41] LABS: Glucose - Point of Care 395 mg/dl (70-99)
[2023-10-23] MEDS: NOVOLIN R INSULIN INFUSION 100 IV (15:46)
[2023-10-23 15:58] LABS: Blood Urea Nitrogen 45 mg/dl (9-20); Calcium 8.8 mg/dl (8.4-10.2); Carbon Dioxide 20 mmol/L (22-30); Chloride 99 mmol/L (98-107); Estimated Creatinine Clearance 39 ml/min; Glucose 367 mg/dl (70-99); Potassium 4.3 mmol/L (3.5-5.1); Sodium 132 mmol/L (135-145); eGFR 26.16
[2023-10-23] MEDS: LEVOPHED 250 IV (16:00)
--- NOTE | 2023-10-23 16:15 | HPS.HSE ---
Family Physician
-
Family Physician: Preeti Markham
Chief Complaint
-
Vomiting
History of Present Illness
58 year old male with a past medical history of poorly controlled Type II DM, hypertension, schizoaffective/bipolar disorder who presented to the ED with complaint of severe vomiting
Patient was recently discharged from following an admission for management of HHS and was started on a regimen of Metformin, Glimepiride, and Januvia for diabetes management. Insulin was avoided for concerns of compliance. Following his admission
the patient says he took his new medications and within an hour began to feel sick and vomited. He did not experience any abdominal pain at that time. The vomit contained food, but no blood. He continued to vomit a mix of food/clear fluid throughout
the day and into the night, with a brief reprieve after falling asleep in the early AM. During this time he reports being unable to keep down solids/liquids. He woke up the next day, continued to feel nauseous and vomited several more times so he
came to the ED.
ED Course:
In the ED he received 10 U Lantus SC, was given 2L of NS bolus, and blood was drawn. He was felt to be distended, though he did not endorse any symptoms of abdominal pain. He was sent for Chest/Abd CR which showed Small bowel obstruction with
dilated gas-filled loops of small bowel measuring up to 4 cm. A urinalysis was done which was (+) for nitrites, bacteria and LE. He remained hypotensive in the ED systolic <80 mmHg and so Blood C/x were drawn, empiric Abx with Cefepime/Vancomycin
was started and another 1L bolus of NS was ordered.
Medical History
Past Medical History
Past Medical History: Reports HTN, Hypercholesterolemia and NIDDM
Past Surgical History: Reports Orthopedic
Social History
Tobacco: Non-smoker
Alcohol: None
Drug: None
Family History
Family History: Not pertinent
Allergies / Home Medications
Allergies reflects when Allergies were last updated in [facility].
Home Medications with original date entered in [facility]
Allergy/Medication List:
NKDA
Review of Systems
-
History Source: Patient
A 12 point ROS was completed and negative except as noted: Yes
Constitutional: Reports No Symptoms
EENT: Reports No Symptoms
Respiratory: Reports Trouble Breathing (Shortness of breath)
Cardiac: Reports No Symptoms
Abdomen/GI: Reports Nausea and Vomiting
: Reports No Symptoms
Musculoskeletal: Reports No Symptoms
Skin: Reports No Symptoms
Neurological: Reports No Symptoms
Endocrine: Reports No Symptoms
Hematologic/Lymphatic: Reports No Symptoms
Psych: Reports No Symptoms
Physical Exam
Vital Signs
Vital Signs
Temp Pulse Resp BP Pulse Ox
97.2 F 96 16 84/51 96
10/23/23 10:31 10/23/23 16:00 10/23/23 16:00 10/23/23 16:00 10/23/23 15:45
Physical Exam
General: Well Developed, Appears in Distress and Morbidly Obese
HEENT: NormoCephalic, Anicteric, Moist mucous membranes, Atraumatic, PERRLA and [place] Conjunctivae
Respiratory: Clear
Cardiac: S1/S2 and Regular Rhythm
Breast: N/A
GI: Normal Bowel Sounds and Distended
Genito-urinary: Deferred by me
Musculoskeletal: No Clubbing, No Cyanosis and Normal Gait & Station
Neuro: Awake, Alert, Oriented, Nonfocal/grossly intact and No Sensory Deficits
Psych: Anxious
Laboratory Results
-
10/23/23 11:40
Laboratory Results
Lactic Acid 1.6 mmol/L (0.7-2.0) 10/23/23 11:44
Total Bilirubin 1.7 mg/dl (0.2-1.3) H 10/23/23 11:40
AST 29 U/L (17-59) 10/23/23 11:40
ALT 53 U/L (0-50) H 10/23/23 11:40
Alkaline Phosphatase 99 U/L (38-126) 10/23/23 11:40
Impression/Plan
-
Assessment & Plan
58 year old male with a past medical history of poorly controlled Type II DM, hypertension, schizoaffective/bipolar disorder who presented to the ED with complaint of severe vomiting
#Sepsis unknown etiology
- RR >20, HR >90, possible source of infection from UTI, SBP <90 mmHg.
- Blood C/x drawn; results pending
- Started on IV Vanoc/Cefepime
- UA (+) as above; pending reflex to C/x
- Orders placed for Levophed
#DKA vs. High Anion Gap Metabolic Acidosis vs. Unresolved HHS
- BG 499, pH 7.27, HCO3 17.9, B-Hydroxybutarate 0.42, Anion gap 23, UA (-) for ketones, K 4.6
- Put on insulin ggt
#Small Bowel Obstruction vs. Adynamic Ileus secondary to Diabetes
- Last BM was one day ago
- CXR (+) for dilated loops of small bowel w/ nondilated colon, suggesting SBO
- CT Abd w/ oral contrast ordered
- Dr. Monsivais following
- Keep patient NPO
#ROSE MARIE, likely pre-renal
- [employer]. 3.1, from baseline of <1
- Holding nephrotoxic agents
- Continuing on IVF
#T2DM, uncontrolled
- holding diabetes medication while on insulin ggt
- C/w atorvastatin
- c/w glucose checks
#Hypertension
- Holding Hydrochlorothiazide & Lisinopril given ROSE MARIE
- Hypotensive on admission; will monitor BP
#Schizoaffective Disorder/Bipolar
- C/w home psych medication Perphenazine & trihexyphenidyl
Dispo: ICU
Diet: NPO
DVT PPx: Heparin 5000 Q8 SC
Code Status: Full Code
[2023-10-23] MEDS: VANCOCIN 540 MG IV (16:34)
[2023-10-23 16:37] LABS: Glucose - Point of Care 331 mg/dl (70-99)
[2023-10-23] MEDS: STERILE WATER FOR INJECTION 10 ML IV (17:10)
[2023-10-23] MEDS: MAXIPIME 2000 MG IV (17:10)
[2023-10-23 17:25] LABS: Glucose - Point of Care 336 mg/dl (70-99)
[2023-10-23] MEDS: HEPARIN 5000 UNITS SC (18:07)
[2023-10-23 18:23] LABS: Glucose - Point of Care 292 mg/dl (70-99)
[2023-10-23 18:40] LABS: INR 1.24; PT 15.4 Sec (11.4-14.6)
[2023-10-23 18:41] LABS: APTT 24.8 Sec (23.4-35.0)
[2023-10-23 18:47] LABS: Blood Urea Nitrogen 44 mg/dl (9-20); Calcium 8.2 mg/dl (8.4-10.2); Carbon Dioxide 19 mmol/L (22-30); Chloride 106 mmol/L (98-107); Estimated Creatinine Clearance 48 ml/min; Glucose 268 mg/dl (70-99); Potassium 4.5 mmol/L (3.5-5.1); Sodium 133 mmol/L (135-145); eGFR 35.37
--- NOTE | 2023-10-23 19:23 | W.PN.SEPSIS ---
Sepsis
Vital Signs
Temp Pulse Resp BP Pulse Ox
99.4 F 96 16 84/51 96
10/23/23 16:45 10/23/23 16:00 10/23/23 16:00 10/23/23 16:00 10/23/23 15:45
Physical Exam
Physical Exam:
A focused exam was performed after fluid resuscitation.
Capillary Refill
Bilateral Upper Extremity:
Cecily Time: Less than 3 sec
Bilateral Lower Extremity:
Cecily Time: Less than 3 sec
Pulse Evaluation
Bilateral Radial:
Pulse Evaluation: Present
Bilateral Dorsalis Pedis:
Pulse Evaluation: Present
--- NOTE | 2023-10-23 19:29 | PHA.VAN.IN ---
Assessment
- Assessment
Renal Function: Appears elevated from baseline (baseline < 1)
Concomitant Antimicrobials: cefepime
AUC Dosing Plan
- Empiric Dosing
Initial / Loading Dose: 2000 mg load dose ordered - adm 16:34
Maintenance Regimen: dose by level due to ROSE MARIE
Plan
- Plan
Monitoring: random level in AM 10/24/23
Pharmacokinetics Vancomycin I
- -
Patient Age: 58
Patient Sex: Male
Vancomycin Day #: 1
Indication: Bacteremia
Requesting Provider: Resident Luciana
Height / Weight:
Height 5 ft 8 in
Actual Weight 125.4 kg
Pertinent Past Medical History: BMI ~42
- Vital Signs / Lab Results
Temp Pulse Resp BP Pulse Ox
99.4 F 96 16 84/51 96
10/23/23 16:45 10/23/23 16:00 10/23/23 16:00 10/23/23 16:00 10/23/23 15:45
Lab Results - Hematology
10/23/23
11:40
WBC 9.5
Lab Results - Chemistry
10/23/23 10/23/23 10/23/23
11:40 15:37 18:23
BUN 44 H 45 H 44 H
Creatinine 3.1 H 2.7 H 2.1 H
Estimated Creat Clear 39 48
Albumin 3.6
10/23/23
11:44
Lactic Acid 1.6
Lab Results - Urine
10/23/23
13:48
Urine Nitrite (Reflex) Positive A
Leukocyte Esterase Rfl Trace A
Urine WBC (Reflex) 3-5
Urine Bacteria (Reflex) Moderate A
--- NOTE | 2023-10-23 19:47 | PTCARENOTE ---
06:05 Patient admitted from ED , Admission DX DKA. Patient received with Levophed infusing at 3mcg via Left AC # 18 for SBP >90 peripheral line ; Insulin qtt at 4mcg; 0.9NSS with 20K-cl at 251/hr . Oral temp 99.5. SR 80's
AAO x3; Denies pain
SR 80's No edema Pedal pulses present to palpation
Abdomen obese round hypoactive BS . Denies nausea Denies abdominal pain
Voiding urinal dark david urine Denies discomfort on urination
Skin intact
Patient was able to finish only half of 2nd cup of oral contrast at 17:15; Taking to abdominal CT at 18:45 via bed . Results pending . Patine NPO at this time
HOB elevated . call mcleod within reach
[2023-10-23 19:51] LABS: Glucose - Point of Care 224 mg/dl (70-99)
[2023-10-23] MEDS: D5/0.45%NSS with KCL 20 MEQ 1000 IV (20:03)
[2023-10-23] MEDS: NSS with KCL 20 MEQ IV (20:04)
[2023-10-23 20:22] LABS: Glucose - Point of Care 224 mg/dl (70-99)
[2023-10-23 20:36] LABS: Blood Urea Nitrogen 43 mg/dl (9-20); Calcium 8.4 mg/dl (8.4-10.2); Carbon Dioxide 17 mmol/L (22-30); Chloride 105 mmol/L (98-107); Estimated Creatinine Clearance 53 ml/min; Glucose 238 mg/dl (70-99); Potassium 4.6 mmol/L (3.5-5.1); Sodium 135 mmol/L (135-145); eGFR 39.89
[2023-10-23] MEDS: TRILAFON 16 MG PO (20:46)
[2023-10-23] MEDS: LIPITOR 40 MG PO (20:55)
--- NOTE | 2023-10-23 21:03 | PTCARENOTE ---
Received patient AAOx3, following commands, denying pain. Normal sinus, levo gtt ongoing for SBP>90. Normothermic, no edema. 93% on room air, lung sounds clear and diminished throughout. Abdomen soft, round, obese, hypoactive bowel sounds. No BM yet
this shift. Urinal to void, david urine. Skin intact. PIVs patent, WNL. Insulin and IVF gtt ongoing per DKA protocol, see flowsheets. Q1 accucheck ongoing. Call mcleod within reach, able to make needs known.
[2023-10-23 21:05] LABS: Glucose - Point of Care 254 mg/dl (70-99)
[2023-10-23 22:17] LABS: Glucose - Point of Care 302 mg/dl (70-99)
[2023-10-23 22:42] LABS: Blood Urea Nitrogen 43 mg/dl (9-20); Calcium 8.1 mg/dl (8.4-10.2); Carbon Dioxide 18 mmol/L (22-30); Chloride 104 mmol/L (98-107); Estimated Creatinine Clearance 56 ml/min; Glucose 269 mg/dl (70-99); Potassium 4.6 mmol/L (3.5-5.1); Sodium 133 mmol/L (135-145); eGFR 42.56
[2023-10-23 23:33] LABS: Glucose - Point of Care 220 mg/dl (70-99)
[2023-10-24] VITALS (29 sets, daily range): BP systolic 77–144; BP diastolic 55–92; BMI 45.8
--- NOTE | 2023-10-24 00:10 | PTCARENOTE ---
Patient on 2 liters nasal cannula for desaturating to 85% while sleeping. Otherwise, patient assessment unchanged from previous, call mcleod within reach.
[2023-10-24 00:17] LABS: Glucose - Point of Care 229 mg/dl (70-99)
[2023-10-24] MEDS: HEPARIN 5000 UNITS SC ×2 (01:09→08:01)
[2023-10-24 01:23] LABS: Glucose - Point of Care 230 mg/dl (70-99)
[2023-10-24 02:26] LABS: Glucose - Point of Care 235 mg/dl (70-99)
[2023-10-24] MEDS: D5/0.45%NSS with KCL 20 MEQ 1000 IV ×2 (02:32→09:38)
[2023-10-24 02:46] LABS: Blood Urea Nitrogen 33 mg/dl (9-20); Calcium 8.5 mg/dl (8.4-10.2); Carbon Dioxide 17 mmol/L (22-30); Chloride 109 mmol/L (98-107); Estimated Creatinine Clearance 92 ml/min; Glucose 233 mg/dl (70-99); Potassium 4.8 mmol/L (3.5-5.1); Sodium 136 mmol/L (135-145); eGFR > 60.00
[2023-10-24 03:19] LABS: Glucose - Point of Care 217 mg/dl (70-99)
--- NOTE | 2023-10-24 04:08 | PTCARENOTE ---
Patient assessment unchanged from previous, call mcleod within reach.
[2023-10-24 04:17] LABS: Glucose - Point of Care 218 mg/dl (70-99)
[2023-10-24] MEDS: STERILE WATER FOR INJECTION 10 ML IV (04:53)
[2023-10-24] MEDS: MAXIPIME 2000 MG IV (04:53)
[2023-10-24 05:37] LABS: Glucose - Point of Care 224 mg/dl (70-99)
[2023-10-24 05:48] LABS: Venous Blood Gas B.E. -6.7 mmol/L (-4 to +4); Venous Blood Gas HCO3 17.5 mmol/L (22-27); Venous Blood Gas O2 Sat % 98.6 %; Venous Blood Gas pCO2 31 mmHg (35-48); Venous Blood Gas pH 7.36 (7.32-7.43); Venous Blood Gas pO2 217 mmHg (30-50)
[2023-10-24 06:08] LABS: Vancomycin Random 7.1 ug/ml
[2023-10-24 06:12] LABS: Blood Urea Nitrogen 28 mg/dl (9-20); Calcium 8.5 mg/dl (8.4-10.2); Carbon Dioxide 18 mmol/L (22-30); Chloride 107 mmol/L (98-107); Estimated Creatinine Clearance 118 ml/min; Glucose 227 mg/dl (70-99); Magnesium 1.8 mg/dl (1.6-2.3); Phosphorus 2.5 mg/dl (2.5-4.5); Potassium 4.7 mmol/L (3.5-5.1); Sodium 136 mmol/L (135-145); eGFR > 60.00
[2023-10-24 06:36] LABS: Platelet Count 179 10^3/uL (130-400)
[2023-10-24 06:37] LABS: % Basophils 0.6 % (0-2); % Eosinophils 5.6 % (0-6); % Immature Granulocytes 0.4 % (0-0.5); % Lymphocytes 18.3 % (20.5-51.1); % Monocytes 15.1 % (1.7-9.3); Absolute Basophils 0.1 10^3/uL (0-0.2); Absolute Eosinophils 0.5 10^3/uL (0-0.7); Absolute Lymphocytes 1.5 10^3/uL (1.2-3.4); Absolute Monocytes 1.2 10^3/uL (0.1-0.6); Absolute Neutrophils 4.9 10^3/uL (1.4-6.5); Hematocrit 38.3 % (39.0-52.0); Hemoglobin 13.5 g/dL (13.0-18.0); Mean Corp Hgb Conc. 35.2 g/dL (33.0-37.0); Mean Corpuscular Volume 85.1 fL (80.0-94.0); Mean Platelet Volume 10.9 fL (7.4-10.4); Nucleated Red Blood Cells % 0 % (-); Red Cell Dist. Width 13.8 % (11.5-14.5); White Blood Cell Count 8.2 10^3/uL (4.8-10.8)
[2023-10-24 07:11] LABS: Glucose - Point of Care 220 mg/dl (70-99)
--- NOTE | 2023-10-24 07:44 | CON.INTV ---
Consultation
Consultation Request
Date/Time Consultation Requested: 10/23
Date/Time Consultation Performed: 10/23
Reason for Consultation: Critical care
Medical History
-
History of Present Illness:
History obtained from the patient, reviewing the chart. Patient is a 58-year-old male with history of diabetes diagnosed in 2022, recently discharged 09/23/2023 after treated for DKA. Of note, at that time was discharged with plan for follow-up with
endocrine. Patient was thought to be poor candidate for long-term insulin therapy due to compliance. Patient was discharged on metformin and Januvia, glimepiride. Patient states he was unable to take his medications due to stomach pains. He
admits to nausea, emesis. Brought himself in a dose on possible because of an upset stomach. Upon arrival, afebrile, pulse 107, breathing at 18, blood pressure 90/58, 96%. Initial blood sugar 499, creatinine 3.1, anion gap elevated at 17.
Patient was treated with IV fluids. Patient had abdominal imaging due to nausea to rule out small bowel obstruction. We are asked to help from critical care standpoint
Patient denies chest pain, shortness of breath, falls, syncope, diarrhea, fevers, chills
.
PMH: Type 2 diabetes diagnosed 2022, poorly controlled, hypertension, history of bipolar disorder on disability. History of bilateral knee replacement, inguinal hernia repair
Past Medical History
Past Medical History: None (See above)
Past Surgical History: None (See above)
Social History
Tobacco: Former Smoker (Quit around 2009, less than [id number] history)
Alcohol: None
Drug: None
Personal: Single
Living: Alone
Employment: Disabled ([employer])
Family History
Family History: Other (1 brother healthy. Both parents at elderly age. Family history negative for blood clots, lung cancer)
Allergies / Home Medications
Allergies
Allergy/AdvReac Type Severity Reaction Status Date / Time
No Known Allergies Allergy Verified 09/02/24 10:33
Home Medications
�Medication �Instructions �Recorded �Confirmed �Last Taken �Type
ascorbic acid (vitamin C) 500 mg 1,000 mg PO DAILY Supplement 08/31/22 10/23/23 10/18/23 History
tablet (Vitamin C)
hydroxyzine pamoate 25 mg capsule 25 mg PO DAILY anxiety 08/31/22 10/23/23 10/18/23 History
multivitamin 1 tab PO DAILY Supplement 08/31/22 10/23/23 10/18/23 History
perphenazine 8 mg tablet 16 mg PO DAILY distress 08/31/22 10/23/23 10/18/23 History
trihexyphenidyl 5 mg tablet 5 mg PO NOON PRN restlessness 08/31/22 10/23/23 05/20/23 08:00 History
hydrochlorothiazide 12.5 mg tablet 12.5 mg PO DAILY Blood Pressure 10/18/23 10/23/23 10/18/23 History
lisinopril 40 mg tablet 40 mg PO DAILY Blood Pressure 10/18/23 10/23/23 10/18/23 History
trihexyphenidyl 5 mg tablet 5 mg PO DAILY EPS 10/18/23 10/23/23 10/18/23 History
fenofibrate nanocrystallized 48 mg 48 mg PO DAILY 10/20/23 10/23/23 Unknown Rx
tablet Hypertriglyceridemia 1 month #30
tabs
glimepiride 2 mg tablet 4 mg (2 x 2 mg) PO BID@0800,1630 10/20/23 10/23/23 Unknown Rx
Diabetes 1 month #120 tabs
metformin 1,000 mg tablet 1,000 mg PO BID@0800,1700 Diabetes 10/20/23 10/23/23 Unknown Rx
1 month #60 tabs
sitagliptin phosphate 100 mg 100 mg PO DAILY Diabetes 1 month 10/20/23 10/23/23 Unknown Rx
tablet (Januvia) #30 tabs
atorvastatin 40 mg tablet 40 mg PO HS High Cholesterol 10/23/23 10/23/23 Unknown History
Review of Systems
-
All other systems: Negative unless noted (Patient missed a 19 pound weight loss)
Vitals / Labs / Diagnostic Testing
Vital Signs
Temp Pulse Resp BP Pulse Ox
98.6 F 99 18 95/55 96
10/24/23 07:26 10/24/23 06:00 10/24/23 06:00 10/24/23 06:00 10/24/23 06:00
Lab Data
10/24/23 06:26
Laboratory Results
10/23/23
18:23
PT 15.4 H
INR 1.24
APTT 24.8
Diagnostic Testing:
Physical Exam
-
HEENT: Normocephalic and Anicteric
Cardiovascular: S1/S2, Regular Rhythm (Mild tachycardia), Murmur (n), Peripheral Edema (tr) and Calf Tenderness (n)
Respiratory: Wheeze (n), Rales (n), Rhonchi (n) and Non-Labored Respirations
GI: Soft, Distended (Obese) and Non Tender
Neurology: Awake, Alert and No Motor Deficits
Skin: Warm
General: Comfortable
Assessment
-
58-year-old male with history of type 2 diabetes, noncompliance, bipolar disorder recently hospitalized for DKA, discharged 10/19 on oral regimen. Patient unable to take oral regimen, with increased stomach discomfort, nausea, poor p.o. intake.
Found to be in acute renal failure, creatinine 3.1, anion gap acidemia, DKA. Patient started on IV fluids, insulin therapy. We are asked to help from critical care standpoint 10/24/2023
Acute hyperglycemia, DKA
Acute renal insufficiency, creatinine 3.1
Nausea/emesis, poor p.o. intake
Conditions present prior to admission
History of type 2 diabetes-poorly controlled-hemoglobin A1c is 15
Morbid obesity
Hypertension
Bipolar disorder, on disability
Former tobacco history, quit 2009
Plan/recommendations
At this time, patient appears to be comfortable
Suspect hyperglycemia due to poor compliance, p.o. intake. Patient states she tolerated medication's during hospital stay
Chest x-ray with decreased lung volumes, abdominal CT without acute findings.
Baseline creatinine 0.9, increased to 3.1
Moving forward
Continue with management of hyperglycemia
Anion gap has improved
Transition IV fluids, advance diet as able
Follow electrolytes
Diabetic [employer] consult has been placed
Marginal blood pressure noted on admission, improved, off pressors
No evidence of underlying infectious process
Will stop antibiotics
DVT prophylaxis: Transition from subcutaneous heparin to Lovenox
GI prophylaxis: Not indicated
Critical care statement: A total of 31minutes of critical care time was provided for this patient today. This includes management of unstable vital signs, evaluation of the patient at bedside, reviewing the patient's pertinent medical records
including ventilator settings, arterial blood gases, radiographs, microbiology, laboratory evaluations and discussion with primary team, critical care nursing, and respiratory therapy.
[2023-10-24] MEDS: TRILAFON 16 MG PO (08:00)
[2023-10-24] MEDS: ATARAX 25 MG PO (08:00)
[2023-10-24] MEDS: ARTANE 5 MG PO (08:00)
--- NOTE | 2023-10-24 08:00 | PTCARENOTE ---
Assumed care of pt at 0715 following shift report. Pt asleep in bed. Woken to name. Denies complaints other than 'I'm tired'. Insulin gtt and IVF continue as ordered. Physical assessment completed as documented. Ordered AM meds administered w/ sips
of water. Pt independently using urinal to void. Call mcleod remains w/in pt reach.
[2023-10-24] MEDS: TRICOR 48 MG PO (08:01)
[2023-10-24 08:16] LABS: Glucose - Point of Care 218 mg/dl (70-99)
--- NOTE | 2023-10-24 09:01 | PHA.VAN.FU ---
Addendum entered and electronically signed by Althea Guan RPH 10/24/23 09:23:
Agree with resident's assessment and plan below.
Original Note:
Vancomycin Assessment / Plan
- Assessment
Renal Function: SCR Decreasing (1.8->1.1->0.9)
WBC's are: WNL
In the past 24 hrs, patient has been: Afebrile
Concomitant Antimicrobials: Cefepime
- Assessment - Therapeutic Drug Monitoring
Random Level: 7.1 ~11.5hrs after end of infusion of 2G loading dose
- Dosing Plan
Adjust Regimen to: Vanco 1750mg Q12H
New Regimen Predicts: AUC (526), Peak (36.2), Trough (11.8)
Dosing Comments: Give 1000mg x1 Now and start scheduled dosing 10/23 1799
- Monitoring Plan
No level(s) ordered at this time: Consider leves in the next few days
- Follow Up
Pharmacy will continue to follow.
Vancomycin Follow UP
- -
Patient Age: 58
Patient Sex: Male
Vancomycin Day #: 2
Indication: Bacteremia
Requesting Provider: Resident Luciana
Height / Weight:
Height 5 ft 8 in
Actual Weight 136.6 kg
Pertinent Past Medical History: BMI ~46
- Vital Signs / Lab Results
Temp Pulse Resp BP Pulse Ox
98.6 F 99 18 95/55 96
10/24/23 07:26 10/24/23 06:00 10/24/23 06:00 10/24/23 06:00 10/24/23 06:00
Lab Results - Hematology
10/23/23 10/24/23 10/24/23
11:40 05:36 06:26
WBC 9.5 Cancelled 8.2
Lab Results - Chemistry
10/23/23 10/23/23 10/23/23
11:40 15:37 18:23
BUN 44 H 45 H 44 H
Creatinine 3.1 H 2.7 H 2.1 H
Estimated Creat Clear 39 48
Albumin 3.6
10/23/23 10/23/23 10/23/23
20:13 22:00 22:07
BUN 43 H Cancelled 43 H
Creatinine 1.9 H Cancelled 1.8 H
Estimated Creat Clear 53 Cancelled 56
Albumin
10/24/23 10/24/23
02:16 05:36
BUN 33 H 28 H
Creatinine 1.1 0.9
Estimated Creat Clear 92 118
Albumin
10/23/23
11:44
Lactic Acid 1.6
Lab Results - Urine
10/23/23
13:48
Urine Nitrite (Reflex) Positive A
Leukocyte Esterase Rfl Trace A
Therapeutic Drug Monitoring
Random Vancomycin 7.1 ug/ml 10/24/23 05:36
[2023-10-24 09:15] LABS: Glucose - Point of Care 232 mg/dl (70-99)
--- NOTE | 2023-10-24 09:27 | PTCARENOTE ---
Pt ambulated w/ supervision x2 to have loose BM. Steady gait w/ use of walker. Pericare and AM Hygiene completed. Sitting OOB in chair. Tolerated activity w/o complications. Pt's brother here to visit. No complaints from pt. Safe environment
maintained.
--- NOTE | 2023-10-24 10:03 | W.PN.INTV ---
Addendum entered and electronically signed by Jesus Chester MD 10/24/23 12:03:
Below reviewed at length, patient seen and examined independently by myself
Agree with below plan. Please see my note from earlier this morning
Patient has been transitioned off IV insulin, oral intake initiated
Difficult outpatient situation, patient noncompliant
Moving bowels, denies any abdominal symptoms at this time. Abdominal imaging unremarkable
Reviewed with patient possibly of underlying sleep disordered breathing. He is not agreeable to any follow-up
For transfer out of ICU. We will sign off. Please call with questions
Original Note:
Today's Communication / Plan
Recommendations
-If patient able to come off the insulin drip then we will transfer to [facility].
Assessment
-
58-year-old male with history of type 2 diabetes, noncompliance, bipolar disorder recently hospitalized for DKA, discharged 10/19 on oral regimen. His oral regimen included metformin, glimepiride, and Januvia. Patient has a past medical history of
bipolar 1 disorder, schizophrenia, diabetes, anxiety, morbid obesity, dyslipidemia, and essential hypertension. Patient unable to take oral regimen, with increased stomach discomfort, nausea, poor p.o. intake. Found to be in acute renal failure on
presentation to the ED, creatinine 3.1, anion gap acidemia, DKA. Patient started on IV fluids, insulin therapy. Blood pressure was 90/58. Abdomen in the emergency department was diffusely mildly tender with mild distention. He was given 10 units
of Lantus, and 2 L normal saline bolus. Fingerstick in the emergency department was 441. He was sent for chest/abdominal chest x-ray which showed small bowel obstruction with dilated gas loops of small bowel measuring up to 4 cm. Urine analysis
was positive for nitrites, bacteria, and leukocyte esterase. Patient remained hypotensive and empiric antibiotics cefepime and vancomycin were given. Abdominal CT conducted on 10/22 showed hepatomegaly with diffuse fatty infiltration of the liver.
We are asked to help from critical care standpoint 10/24/2023
Acute hyperglycemia, DKA
Acute renal insufficiency, creatinine 3.1
Nausea/emesis, poor p.o. intake
Conditions present prior to admission
History of type 2 diabetes-poorly controlled-hemoglobin A1c is 15
Morbid obesity
Hypertension
Bipolar disorder, on disability
Former tobacco history, quit 2009
Impression:
# HHNK/DKA
# ROSE MARIE
# Hypotension
# Small bowel obstruction
# Poorly controlled type 2 diabetes mellitus
# Hypertension
# Dyslipidemia
# Bipolar 1 disorder
# Schizophrenia
Plan/recommendations
At this time, patient appears to be comfortable
Suspect hyperglycemia due to poor compliance, p.o. intake. Patient could not tolerate his outpatient diabetic medications
Chest x-ray showed no active cardiopulmonary disease
Baseline creatinine now at 0.9, down from 3.1 on 10/23/2023 at the ED
Assessment and plan:
-Patient currently on an insulin drip: Continue per protocol. Will titrate as necessary.
-Anion gap has closed.
-Blood sugar in the 200s. This was the patient has been likely chronically high in the outpatient setting. Hemoglobin A1c was 15.7 on 10/17 during prior admission.
-Trigger for hyperglycemic crisis likely poor compliance/under therapy/poor dietary choices.
-There is no evidence for infection or acute coronary syndrome. Though urine analysis was positive for nitrates, leukocyte Estrace, and had moderate bacteria -urine culture showed no significant bacterial growth.
-EKG on 10/23/2023 showed a nonspecific T wave abnormality now evident in the lateral leads.
---
-Chest/abdominal x-ray on 10/22 showed small bowel obstruction with dilated gas-filled loops of small bowel measuring up to 4 cm
-Patient managed to have 2 loose bowel movements after arriving to the ICU.
-Subsequent CT of the abdomen/pelvis on 10/22 showed no acute abnormalities in the abdomen or pelvis. Specifically, no bowel dilatation to suggest bowel obstruction. There was hepatomegaly with diffuse fatty infiltration of the liver.
-It is possible that the patient cleared his small bowel obstruction during this admission.
-Continue to monitor
---
-Continue insulin drip for now.
-Likely will be transition to subcu insulin, diabetes nurse practitioner has been consulted. Case has been discussed.
-There is concern that the patient may struggle to manage his diabetic medications in the outpatient setting.
---
-May need high school social science teacher help
---
-To be transition later to non-IV regimen. Insulin drip possibly will be discontinued later today if tolerated.
-Consider discontinuing IV fluids
-Consider advancing diet
---
-If patient able to come off the insulin drip then we will transfer to [facility].
---
Data (In order of most recent):
Chest x-ray on 10/23/2023: No active cardiopulmonary disease. The cardiac silhouette and pulmonary vasculature are radiographically within normal limits. There are no acute mediastinal abnormalities. There are no acute pleural or parenchymal
abnormalities.
Abdomen/pelvis CT on 10/23/2023: No acute abnormalities in the abdomen or pelvis. Specifically, there is no bowel dilatation to suggest bowel obstruction. Hepatomegaly with diffuse fatty infiltration of the liver.
Chest/abdominal x-ray on 10/23/2023: There is a moderate amount of gas in dilated loops of small bowel measuring up to 4 cm as well as in nondilated loops of colon in a pattern suggesting small bowel obstruction. There is no free intraperitoneal air.
There are no abnormal soft tissue masses.
EKG on 10/23/2023: showed a nonspecific T wave abnormality now evident in the lateral leads.
Subjective Dataa
Subjective Data
Date of Service:
Date of Service: October 24, 2023
Met with patient at the bedside. Patient is very somnolent and fell asleep once during conversation. He states that he slept well and has no complaints at the present time. He states that he snores sometimes at night but believes he has no
difficulty staying asleep.
Review of Systems
General: Satisfactory Appetite
Objective Data
Data Reviewed
Vital Signs / I&O / Oxygen:
Vital Signs
Temp Pulse Resp BP Pulse Ox
98.6 F 105 23 115/78 95
10/24/23 07:26 10/24/23 09:30 10/24/23 09:30 10/24/23 09:30 10/24/23 08:15
Intake and Output
10/23/23 10/24/23 10/25/23
06:59 06:59 06:59
Intake Total 2911.3 / 3064.3 459 / 459
Output Total 2400 / 2400 900 / 900
Balance 511.3 / 664.3 -441 / -441
SaO2 95
Nasal Cannula flow liters per 2
minute
Physical Exam
General: Comfortable
HEENT: Normocephalic
Cardiovascular: Regular Rhythm
Respiratory: Clear and Non-Labored Respirations
GI: Soft, Non Distended, Non Tender and Normal Bowel Sounds
Neurology: Awake, Alert and Oriented
Labs/Micro/Reports
Lab Data
10/24/23 06:26
10/24/23 22:00
Laboratory Results
10/23/23
18:23
PT 15.4 H
INR 1.24
APTT 24.8
Microbiology
10/23/23 13:48 Urine Urine Culture - Final
No Significant Growth
[2023-10-24 10:17] LABS: Glucose - Point of Care 213 mg/dl (70-99)
--- NOTE | 2023-10-24 10:28 | CM ---
Addendum entered by Jeremy Gordon 10/24/23 13:36:
CM spoke to RN nurse navigator Lise from [facility] [phone] and she will help the pt with medication management in a community.
Please call Lise at discharge to coordinate discharge needs.
Original Note:
CM following re: discharge planning.
Discussed in Rounds, reviewed pt's chart, met with pt.
Pt is a 58 year old male, admitted with primary dx of DKA.
Pt is well known to this CM from previous admission last week. The patient resides alone in a second floor apartment with his two cats. There is one step to enter and a flight of stairs to apartment. The patient's [id number] is currently caring
for the cats while the patient is in the hospital. The patient reports no DME/VN/SNF in the past. The patient reports being current with [facility]. 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 Pt
stated he drove here and will drive back home at discharge.
PCP: Preeti Self
Pharmacy: [facility].
D/C plan: home with anticipated no after care VN needs. Pt will resume outpatient mental health services at [facility]
CM will follow with discharge plan updates as hospitalization progresses
--- NOTE | 2023-10-24 11:16 | PN.DE.MGMTRT ---
Insulin Management
- -
10/24/2023 Diabetes Management Consult.
Patient admitted with DKA, glucose on admission 461, GAP 17, cr 3.1, eGFR 22.17. PMH HTN, type 2 diabetes for 1 1/2 years and bipolar, schizophrenia. A1C 15.7%. Patient was just discharged 10/19 on glimepiride BID, metformin BID and Januvia. He
took the medication one time but he did not feel well so stopped.
Patient sleeping soundly, did wake up was alert and oriented able to discuss diabetes plan.
Currently on DKA protocol. Will give 15 units lantus now, insulin infusion off in 2 hours. Will start 1800 calorie diet and 5 units novolog AC with low corrective.
I did instruct patient on steps to use a prefilled pen and provided printed instructions for each step with pictures. Patient is slow to grasp, during return demonstration he needed multiple verbal cues. Requested nursing reinforce and have
patient self inject at all meals with nursing supervision.
Provided pen needles.
Previous admission patient was given a Contour next meter and instructed.
Diabetes History
- -
Type of Diabetes: 2
Pre-Admission Diabetes Regimen
10/23/23 10/23/23 10/23/23
11:40 15:37 18:23
Creatinine 3.1 H 2.7 H 2.1 H
10/23/23 10/23/23 10/23/23
20:13 22:00 22:07
Creatinine 1.9 H Cancelled 1.8 H
10/24/23 10/24/23 10/24/23
02:16 05:36 10:00
Creatinine 1.1 0.9 Cancelled
10/24/23 10/24/23 10/24/23
14:00 18:00 22:00
Creatinine Cancelled Cancelled Cancelled
Insulin Pump Settings
IP Diabetes Regimen
10/23/23 10/23/23 10/23/23
11:40 11:55 12:43
Glucose 499 H*
POC Glucose 441 H 378 H
10/23/23 10/23/23 10/23/23
13:53 15:25 15:37
Glucose 367 H
POC Glucose 374 H 395 H
10/23/23 10/23/23 10/23/23
16:26 17:04 18:02
Glucose
POC Glucose 331 H 336 H 292 H
10/23/23 10/23/23 10/23/23
18:23 19:30 20:11
Glucose 268 H
POC Glucose 224 H 224 H
10/23/23 10/23/23 10/23/23
20:13 20:54 22:00
Glucose 238 H Cancelled
POC Glucose 254 H
10/23/23 10/23/23 10/23/23
22:06 22:07 23:21
Glucose 269 H
POC Glucose 302 H 220 H
10/24/23 10/24/23 10/24/23
00:06 01:11 02:15
Glucose
POC Glucose 229 H 230 H 235 H
10/24/23 10/24/23 10/24/23
02:16 03:08 04:06
Glucose 233 H
POC Glucose 217 H 218 H
10/24/23 10/24/23 10/24/23
05:26 05:36 07:00
Glucose 227 H
POC Glucose 224 H 220 H
10/24/23 10/24/23 10/24/23
08:04 09:03 10:00
Glucose Cancelled
POC Glucose 218 H 232 H
10/24/23 10/24/23 10/24/23
10:06 14:00 18:00
Glucose Cancelled Cancelled
POC Glucose 213 H
10/24/23
22:00
Glucose Cancelled
POC Glucose
Patient Education
--- NOTE | 2023-10-24 11:39 | W.PN.HOSP.TC ---
Today's Communication/Plan
-
C/w SC Insulin. Talk to case management & Hima (Brother) to plan for discharge and at home help
Assessment / Plan
Assessment / Plan
58 year old male with a past medical history of poorly controlled Type II DM, hypertension, schizoaffective/bipolar disorder who presented to the ED with complaint of severe vomiting
Brother Hima (contact): [phone]
#Sepsis; unknown etiology
#Hypotension
- RR >20, HR >90, possible source of infection from UTI, SBP <90 mmHg.
- Blood C/x drawn; results pending
- D/c IV Vanoc/Cefepime
- UA (+) as above; Urine C/x (-)
- Required Levophed to maintain pressures in the evening of 10/22 but by the morning of 10/23 he was weaned off and is normotensive
#DKA vs. High Anion Gap Metabolic Acidosis vs. Unresolved HHS
- BG 499, pH 7.27, HCO3 17.9, B-Hydroxybutarate 0.42, Anion gap 23, UA (-) for ketones, K 4.6
- Anion gap today has closed, Glucose has stabilized.
- See below for SC Insulin transition
#T2DM, uncontrolled
- holding diabetes medication. Off insulin drip & transitioned to SC as outlined below
- C/w atorvastatin
- Begin with 15U Lantus SC QHS, 5U Novolog AC and a LDISS
- 1800 Calorie Diabetic Diet
#Small Bowel Obstruction vs. Adynamic Ileus secondary to Diabetes
- Last BM was one day ago
- CXR (+) for dilated loops of small bowel w/ nondilated colon, suggesting SBO
- CT Abd w/ oral contrast ordered
- Dr. Monsivais following; no surgical intervention indicated at this time
#ROSE MARIE, likely pre-renal (resolved)
- Fitness Coach. 3.1, from baseline of <1. Fitness Coach 9/3 is 0.9
- Holding nephrotoxic agents
- Continuing on IVF
#Hypertension
- Holding Hydrochlorothiazide & Lisinopril given ROSE MARIE
- Hypotensive on admission; will monitor BP
#Schizoaffective Disorder/Bipolar
- C/w home psych medication Perphenazine & trihexyphenidyl
Dispo: Transfer to IMU
Diet: 1800 calorie Diabetic Diet
DVT PPx: Heparin 5000 Q8 SC
Code Status: Full Code
Anticipated Discharge: 24 - 48 hours
Subjective/Interval History
-
Seen in the AM. Glucose has stabilized, anion gap has closed and patient has been taken off Insulin drip & pressors. He states he is feeling fine, has no nausea/vomiting/abdominal pain, and is eager to eat. He has no other acute complaints. There
were no acute events overnight.
Objective Data
-
Labs:
Laboratory Results
10/24/23 10/24/23 10/24/23
02:16 05:36 06:26
WBC Cancelled 8.2
Hgb Cancelled 13.5
Hct Cancelled 38.3 L
Plt Count Cancelled 179 D
Sodium 136 136
Potassium 4.8 4.7
Chloride 109 H 107
Carbon Dioxide 17 L 18 L
BUN 33 H 28 H
Creatinine 1.1 0.9
Glucose 233 H 227 H
Calcium 8.5 8.5
10/24/23 10/24/23 10/24/23
10:00 14:00 15:00
WBC
Hgb
Hct
Plt Count
Sodium Cancelled Cancelled Pending
Potassium Cancelled Cancelled Pending
Chloride Cancelled Cancelled Pending
Carbon Dioxide Cancelled Cancelled Pending
BUN Cancelled Cancelled Pending
Creatinine Cancelled Cancelled Pending
Glucose Cancelled Cancelled Pending
Calcium Cancelled Cancelled Pending
10/24/23 10/24/23
18:00 22:00
WBC
Hgb
Hct
Plt Count
Sodium Cancelled Cancelled
Potassium Cancelled Cancelled
Chloride Cancelled Cancelled
Carbon Dioxide Cancelled Cancelled
BUN Cancelled Cancelled
Creatinine Cancelled Cancelled
Glucose Cancelled Cancelled
Calcium Cancelled Cancelled
Vital Signs:
Vital Signs
Temp Pulse Resp BP Pulse Ox
98.9 F 105 23 115/78 95
10/24/23 11:23 10/24/23 09:30 10/24/23 09:30 10/24/23 09:30 10/24/23 08:15
I&O
10/23/23 10/24/23 10/25/23
06:59 06:59 06:59
Intake Total 2911.3 / 3064.3 459 / 459
Output Total 2400 / 2400 900 / 900
Balance 511.3 / 664.3 -441 / -441
Review of Systems
-
History Source: Patient
All other systems: Reviewed and negative
Constitutional: Reports No Symptoms
EENT: Reports No Symptoms Reported
Respiratory: Reports No Symptoms
Cardiac: Reports No Symptoms
Abdomen/GI: Reports No Symptoms
Breast: Reports N/A
Genitourinary: Reports No Symptoms
Musculoskeletal: Reports No Symptoms
Skin: Reports No Symptoms
Neuro: Reports No Symptoms
Endocrine: Reports No Symptoms
Physical Exam
-
General: Well Developed, No Apparent Distress and Morbidly Obese
HEENT: Normocephalic, Atraumatic, Moist Mucous Membranes, [place] Conjunctivae, PERRLA and Nose Appears Normal
Respiratory: Clear to Auscultation
Cardiac: Regular Rhythm and S1/S2
Breast: N/A
GI: Soft, Nontender, Normal Bowel Sounds and Distended
Genito-urinary: No Costovertebral Tender
Musculoskeletal: No Clubbing, No Cyanosis and No Edema
Neuro: Awake, Alert and Oriented
Psych: Calm
[2023-10-24] MEDS: LANTUS 0.15 UNITS SC (11:45)
[2023-10-24 11:56] LABS: Glucose - Point of Care 232 mg/dl (70-99)
--- NOTE | 2023-10-24 12:30 | PTCARENOTE ---
Pt ambulated to BR using walker and w/ supervision several times to void. Tolerating activity w/o complication. Encouraged to continue to notify and wait for staff assistance prior ambulating. Call mcleod remains w/in pt reach. No changes from
previous assessment findings. Ordered Lantus administered (see MAR). Pt updated on plan of care including diet.
[2023-10-24 13:15] LABS: Glucose - Point of Care 211 mg/dl (70-99)
[2023-10-24] MEDS: NOVOLOG FLEXPEN-LOW RESISTANCE 2 UNITS SC (13:50)
[2023-10-24] MEDS: NOVOLOG FLEXPEN 5 UNITS SC ×2 (13:50→17:35)
[2023-10-24 14:04] LABS: Glucose - Point of Care 208 mg/dl (70-99)
--- NOTE | 2023-10-24 15:42 | PTCARENOTE ---
Transfer report called to 'Sarah [facility]' on 4E. Pt to transfer via w/ personal belongings and hospital meds. Tolerated advanced diet w/o complication other than occasional loose stools. No complaints offered or changes noted from previous assessment
findings.
[2023-10-24 15:47] LABS: Blood Urea Nitrogen 18 mg/dl (9-20); Calcium 9.2 mg/dl (8.4-10.2); Carbon Dioxide 20 mmol/L (22-30); Chloride 106 mmol/L (98-107); Estimated Creatinine Clearance > 125 ml/min; Glucose 179 mg/dl (70-99); Potassium 4.5 mmol/L (3.5-5.1); Sodium 135 mmol/L (135-145); eGFR > 60.00
--- NOTE | 2023-10-24 16:27 | PTCARENOTE ---
Received patient from ICU via wheelchair. Ambulated to bed. Assessed and oriented to room. bilingual branch manager reading NSR-ST. Call mcleod in close reach.
[2023-10-24 16:52] LABS: Glucose - Point of Care 173 mg/dl (70-99)
[2023-10-24] MEDS: NOVOLOG FLEXPEN-LOW RESISTANCE 1 UNITS SC (17:35)
[2023-10-24] MEDS: LOVENOX 40 MG SC (17:42)
--- NOTE | 2023-10-24 18:00 | PTCARENOTE ---
Received call from patient's outpatient psychiatrist Hansa Vance [phone] who provided an update on the patient's history and medications.
[2023-10-24] MEDS: LIPITOR 40 MG PO (21:21)
[2023-10-24 21:36] LABS: Glucose - Point of Care 142 mg/dl (70-99)
[2023-10-25 03:13] VITALS: BP 105/49
[2023-10-25 06:36] LABS: Hematocrit 37.6 % (39.0-52.0); Mean Corp Hgb Conc. 34.6 g/dL (33.0-37.0); Mean Corpuscular Hgb 30.2 pg (27.0-31.0); Mean Corpuscular Volume 87.2 fL (80.0-94.0); Mean Platelet Volume 11.1 fL (7.4-10.4); Platelet Count 162 10^3/uL (130-400); Red Blood Cell Count 4.31 10^6/uL (4.70-6.10); Red Cell Dist. Width 13.7 % (11.5-14.5)
[2023-10-25 07:00] LABS: Blood Urea Nitrogen 11 mg/dl (9-20); Calcium 8.6 mg/dl (8.4-10.2); Carbon Dioxide 21 mmol/L (22-30); Chloride 110 mmol/L (98-107); Estimated Creatinine Clearance > 125 ml/min; Glucose 190 mg/dl (70-99); Potassium 4.3 mmol/L (3.5-5.1); Sodium 136 mmol/L (135-145); eGFR > 60.00
[2023-10-25 07:06] VITALS: BP 159/88
[2023-10-25 07:22] LABS: Glucose - Point of Care 190 mg/dl (70-99)
[2023-10-25] MEDS: TRICOR 48 MG PO (08:00)
[2023-10-25] MEDS: TRILAFON 16 MG PO (08:00)
[2023-10-25] MEDS: ARTANE 5 MG PO (08:01)
[2023-10-25] MEDS: NOVOLOG FLEXPEN 5 UNITS SC ×3 (08:01→16:54)
[2023-10-25] MEDS: ATARAX 25 MG PO (08:01)
[2023-10-25] MEDS: NOVOLOG FLEXPEN-LOW RESISTANCE 1 UNITS SC ×2 (08:01→12:12)
[2023-10-25] MEDS: LANTUS 0.15 UNITS SC (08:02)
--- NOTE | 2023-10-25 08:10 | PN.DE.MGMTRT ---
Insulin Management
- -
10/25/2023 Diabetes Management Consult Follow up:
Patient admitted with DKA, glucose on admission 461, GAP 17, cr 3.1, eGFR 22.17. PMH HTN, type 2 diabetes for 1 1/2 years and bipolar, schizophrenia. A1C 15.7%. Patient was just discharged 10/19 on glimepiride BID, metformin BID and Januvia. He
took the medication one time but he did not feel well so stopped.
Patient awake alert and oriented able to discuss diabetes plan.
Transitioned from DKA protocol to subcutaneous insulin @ ~ 1130am. 1800 calorie diet started with 5 units novolog AC with low corrective. Glucose range 10/23 after infusion stopped 173 and 142. Fasting this AM 190. Will continue 15 units lantus in
AM with 5 units novolog AC and low corrective.
I did instruct patient on steps to use a prefilled pen and provided printed instructions for each step with pictures. Patient is slow to grasp, during return demonstration he needed multiple verbal cues. Requested nursing reinforce and have
patient self inject at all meals with nursing supervision.
Provided pen needles. Will reinforce.
Patient will need VN or other home assistance until he is confident with insulin administration
Previous admission patient was given a Contour next meter and instructed.
Diabetes History
- -
Type of Diabetes: 2
Pre-Admission Diabetes Regimen
10/24/23 10/24/23 10/24/23
10:00 14:00 15:13
Creatinine Cancelled Cancelled 0.8
10/24/23 10/24/23 10/25/23
18:00 22:00 05:55
Creatinine Cancelled Cancelled 0.7
Insulin Pump Settings
IP Diabetes Regimen
10/24/23 10/24/23 10/24/23
08:04 09:03 10:00
Glucose Cancelled
POC Glucose 218 H 232 H
10/24/23 10/24/23 10/24/23
10:06 11:45 13:04
Glucose
POC Glucose 213 H 232 H 211 H
10/24/23 10/24/23 10/24/23
13:48 14:00 15:13
Glucose Cancelled 179 H
POC Glucose 208 H
10/24/23 10/24/23 10/24/23
16:51 18:00 21:34
Glucose Cancelled
POC Glucose 173 H 142 H
10/24/23 10/25/23 10/25/23
22:00 05:55 07:20
Glucose Cancelled 190 H
POC Glucose 190 H
Meal type: Lunch
Amount consumed: 100%
Patient Education
[2023-10-25] MEDS: VISBIOME 2 CAP PO (10:06)
--- NOTE | 2023-10-25 11:27 | CM ---
CM reviewed chart, met with patient bedside. Patient requesting to meet with SAMY Chang to Pastoral Care with request. CM will continue to follow for all discharge planning needs.
Plan; return home with assistance from [facility]
Please call Lise at discharge to coordinate discharge needs (RN nurse navigator Lise from [facility] [phone])- she will help the pt with medication management in a community.
[2023-10-25 11:35] VITALS: BP 118/81; BP 127/83; BP 142/86; PULSE 92; PULSE 95; PULSE 97
[2023-10-25 11:44] LABS: Glucose - Point of Care 184 mg/dl (70-99)
--- NOTE | 2023-10-25 12:39 | W.PN.HOSP.TC ---
Today's Communication/Plan
-
Observe volume status/orthostatic vitals. Can d/c either today or tomorrow as soon as VN is set up to help patient with his insulin.
Assessment / Plan
Assessment / Plan
58 year old male with a past medical history of poorly controlled Type II DM, hypertension, schizoaffective/bipolar disorder who presented to the ED with complaint of severe vomiting
Brother Hima (contact): [phone]
#Symptomatic Hypotension
- RR >20, HR >90, SBP <90 mmHg.
- Blood C/x drawn; results negative at 24hr
- D/c IV Vanoc/Cefepime
- UA (+) as above; Urine C/x (-)
- Required Levophed to maintain pressures in the evening of 10/22 but by the morning of 10/23 he was weaned off and is normotensive
- Orthostatic vitals ordered. If patient is orthostatic will give another NS bolus.
#High Anion Gap Metabolic Acidosis vs. Unresolved HHS (resolved)
- BG 499, pH 7.27, HCO3 17.9, B-Hydroxybutarate 0.42, Anion gap 23, UA (-) for ketones, K 4.6
- Anion gap today has closed, Glucose has stabilized.
- See below for SC Insulin transition
#T2DM, uncontrolled
- holding diabetes medication. Off insulin drip & transitioned to SC as outlined below
- C/w atorvastatin
- Begin with 15U Lantus SC QHS, 5U Novolog AC and a LDISS
- 1800 Calorie Diabetic Diet
- Plan for discharge with new insulin regimen. Diabetic nursing instructions for administration of insulin with VN follow up until patient is confident with self-administration
#Small Bowel Obstruction vs. Adynamic Ileus secondary to Diabetes (resolved)
- Last BM was one day ago
- CXR (+) for dilated loops of small bowel w/ nondilated colon, suggesting SBO
- CT Abd w/ oral contrast - no bowel dilatation to suggest bowel obstruction
- Dr. Monsivais; no surgical intervention indicated at this time
- Had BM yesterday, will give probiotic in lieu of recent IV Abx course
#ROSE MARIE, likely pre-renal (resolved)
- Bun Machine Operator. 3.1, from baseline of <1. Bun Machine Operator is stable
- Holding nephrotoxic agents
- Continuing on IVF LR 125cc/hr
#Hypertension
- Holding Hydrochlorothiazide & Lisinopril given ROSE MARIE
- Hypotensive on admission; will monitor BP
#Schizoaffective Disorder/Bipolar
- C/w home psych medication Perphenazine & trihexyphenidyl
Dispo: Transfer to IMU
Diet: 1800 calorie Diabetic Diet
DVT PPx: Heparin 5000 Q8 SC
Code Status: Full Code
Anticipated Discharge: Within 24 hours
Subjective/Interval History
-
Seen in the AM. He had two episodes of loose stool last night without any abdominal pain or blood. He has had no new fevers or chills. He is not experiencing any shortness of breath or chest pain. He does endorse some lightheadedness. No polyuria,
polydipsia.
Objective Data
-
Labs:
Laboratory Results
10/25/23
05:55
WBC 8.0
Hgb 13.0
Hct 37.6 L
Plt Count 162
Sodium 136
Potassium 4.3
Chloride 110 H
Carbon Dioxide 21 L
BUN 11
Creatinine 0.7
Glucose 190 H
Calcium 8.6
Vital Signs:
Vital Signs
Temp Pulse Resp BP Pulse Ox
99.7 F 92 18 142/86 96
10/25/23 11:35 10/25/23 11:35 10/25/23 11:35 10/25/23 11:35 10/25/23 11:35
I&O
10/24/23 10/25/23 10/26/23
06:59 06:59 06:59
Intake Total 2911.3 / 3064.3 1551 / 1551
Output Total 2400 / 2400 1250 / 1250
Balance 511.3 / 664.3 301 / 301
Review of Systems
-
History Source: Patient
All other systems: Reviewed and negative
Constitutional: Reports No Symptoms
EENT: Reports No Symptoms Reported
Respiratory: Reports No Symptoms
Cardiac: Reports No Symptoms
Abdomen/GI: Reports Diarrhea
Breast: Reports N/A
Genitourinary: Reports No Symptoms
Musculoskeletal: Reports No Symptoms
Skin: Reports No Symptoms
Neuro: Reports No Symptoms
Endocrine: Reports No Symptoms
Hematologic / Lymphatic: Reports No Symptoms
Physical Exam
-
General: Well Developed, Well Nourished, No Apparent Distress, Comfortable and Morbidly Obese
HEENT: Normocephalic, Atraumatic, Moist Mucous Membranes, Anicteric, [place] Conjunctivae and PERRLA
Respiratory: Clear to Auscultation
Cardiac: Regular Rhythm and S1/S2
Breast: N/A
GI: Soft, Nontender, Nondistended and Normal Bowel Sounds
Musculoskeletal: No Clubbing, No Cyanosis and No Edema
Neuro: Awake, Alert and Oriented
Psych: Calm
[2023-10-25] MEDS: LR 1000 IV ×2 (13:26→21:22)
[2023-10-25 15:14] VITALS: BP 134/83
[2023-10-25 16:27] LABS: Glucose - Point of Care 143 mg/dl (70-99)
[2023-10-25] MEDS: NOVOLOG FLEXPEN-LOW RESISTANCE SC (16:51)
[2023-10-25] MEDS: LOVENOX 40 MG SC (17:28)
[2023-10-25 19:08] VITALS: BP 126/86
[2023-10-25 21:18] LABS: Glucose - Point of Care 155 mg/dl (70-99)
[2023-10-25] MEDS: LIPITOR 40 MG PO (21:23)
[2023-10-25 23:36] VITALS: BP 142/92
[2023-10-26 03:44] VITALS: BP 140/87
[2023-10-26] MEDS: LR 1000 IV (06:29)
[2023-10-26 07:04] VITALS: BP 144/92
[2023-10-26 07:30] LABS: Glucose - Point of Care 182 mg/dl (70-99)
--- NOTE | 2023-10-26 07:53 | PN.DE.MGMTRT ---
Insulin Management
- -
10/26/2023 Diabetes Management Consult Follow up:
Patient admitted with DKA, glucose on admission 461, GAP 17, cr 3.1, eGFR 22.17. PMH HTN, type 2 diabetes for 1 1/2 years and bipolar, schizophrenia. A1C 15.7%. Patient was just discharged 10/19 on glimepiride BID, metformin BID and Januvia. He
took the medication one time but he did not feel well so stopped.
Patient awake alert and oriented able to discuss diabetes plan.
Transitioned from DKA protocol to subcutaneous insulin @ ~ 1130am. 1800 calorie diet started with 5 units novolog AC with low corrective. Glucose range 10/23 after infusion stopped 173 and 142.
10/25 Fasting this AM 182. Will continue 15 units lantus in AM with 5 units novolog AC and low corrective.
I did instruct patient on steps to use a prefilled pen and provided printed instructions for each step with pictures. Patient is slow to grasp, during return demonstration he needed multiple verbal cues. Requested nursing reinforce and have
patient self inject at all meals with nursing supervision.
Provided pen needles. Reinforced with patient today importance of testing blood sugar before each meal and bedtime. He is to test glucose take insulin then eat meal. He states he will have help at home.
Patient will need VN or other home assistance until he is confident with insulin administration
Previous admission patient was given a Contour next meter and instructed.
Diabetes History
- -
Type of Diabetes: 2 requiring insulin
Pre-Admission Diabetes Regimen
Insulin Pump Settings
IP Diabetes Regimen
10/25/23 10/25/23 10/25/23
11:43 16:26 21:16
POC Glucose 184 H 143 H 155 H
10/26/23
07:29
POC Glucose 182 H
Meal type: Lunch
Meal type: Breakfast
Amount consumed: 100%
Amount consumed: 100%
Patient Education
[2023-10-26] MEDS: LANTUS 0.15 UNITS SC (08:13)
[2023-10-26] MEDS: NOVOLOG FLEXPEN 5 UNITS SC ×2 (08:14→12:36)
[2023-10-26] MEDS: NOVOLOG FLEXPEN-LOW RESISTANCE 1 UNITS SC ×2 (08:14→12:37)
[2023-10-26] MEDS: VISBIOME 2 CAP PO (08:18)
[2023-10-26] MEDS: TRILAFON 16 MG PO (08:18)
[2023-10-26] MEDS: ATARAX 25 MG PO (08:18)
[2023-10-26] MEDS: ARTANE 5 MG PO (08:18)
[2023-10-26] MEDS: TRICOR 48 MG PO (08:19)
[2023-10-26 08:27] LABS: % Basophils 0.7 % (0-2); % Eosinophils 5.1 % (0-6); % Immature Granulocytes 0.9 % (0-0.5); % Lymphocytes 29.6 % (20.5-51.1); % Monocytes 10.4 % (1.7-9.3); % Neutrophils 53.3 % (42.2-75.2); Absolute Basophils 0.1 10^3/uL (0-0.2); Absolute Eosinophils 0.4 10^3/uL (0-0.7); Absolute Immature Granulocytes 0.1 10^3/uL (0-0.05); Absolute Lymphocytes 2.4 10^3/uL (1.2-3.4); Absolute Monocytes 0.9 10^3/uL (0.1-0.6); Absolute Neutrophils 4.4 10^3/uL (1.4-6.5); Hematocrit 41.7 % (39.0-52.0); Hemoglobin 14.6 g/dL (13.0-18.0); Mean Corpuscular Volume 85.6 fL (80.0-94.0); Mean Platelet Volume 10.8 fL (7.4-10.4); Nucleated Red Blood Cells % 0 % (-); Platelet Count 186 10^3/uL (130-400); Red Blood Cell Count 4.87 10^6/uL (4.70-6.10); Red Cell Dist. Width 13.2 % (11.5-14.5); White Blood Cell Count 8.2 10^3/uL (4.8-10.8)
[2023-10-26 08:38] LABS: Blood Urea Nitrogen 10 mg/dl (9-20); Calcium 9.4 mg/dl (8.4-10.2); Carbon Dioxide 26 mmol/L (22-30); Chloride 102 mmol/L (98-107); Estimated Creatinine Clearance > 125 ml/min; Glucose 199 mg/dl (70-99); Potassium 4.6 mmol/L (3.5-5.1); Sodium 137 mmol/L (135-145); eGFR > 60.00
--- NOTE | 2023-10-26 09:14 | CM ---
Addendum entered by Kelsi Mccord 10/26/23 16:04:
CM received call from patient that current pharmacy is not able to fill insulin lispro until tomorrow. Patient provided CM with an additional pharmacy- [facility] on [facility] [address] [facility] in [place] ([phone]), confirmed patient has been to
pharmacy before, has medication and can fill for patient. TT to Hospitalist to re send script to new pharmacy, added in patients demographics. Call to patient to inform medication will be sent to new pharmacy.
Addendum entered by Kelsi Mccord 10/26/23 14:55:
[facility] has accepted patient for VN services:

Addendum entered by Kelsi Mccord 10/26/23 11:34:
CM received return call from Lise at [facility], requesting discharge paperwork faxed to their office at [phone], would also like the VN agency who will be working with patient included on discharge if possible.
[facility] fax: [phone]
Addendum entered by Kelsi Mccord 10/26/23 11:28:
CM placed another call to Lise with [facility], no response. Patient seen bedside, discussed discharge today. Patient confirms he has transportation. CM discussed referral for VN to assist with insulin management/teaching, patient agreeable, reports he
has not had VN in the past and is open to any agency. Patient reports he has had a nurse come out through his insurance in the past, CM discussed additional referral can be made to VN agency. TT to Hospitalist for VN order, will place referral to
[place]. CM reviewed IMM, signed, placed in chart. CM will continue to follow for all discharge planning needs.
Plan; home with Twyla HUSSEIN pending acceptance, assistance from [facility].
Original Note:
CM reviewed chart. CM placed call to Lise (RN nurse navigator [facility] [phone]) to discuss assisting patient with insulin/medication management. CM left a voicemail requesting a return call.
Plan; home with assistance from nurse [facility], awaiting return call.
[2023-10-26 10:47] VITALS: BP 153/103; BP 162/91; BP 166/98; PULSE 90; PULSE 92; PULSE 94
--- NOTE | 2023-10-26 11:01 | W.DCSUMMARY ---
Documented by User: Charlie Chowdhury MD, Resident 10/26/23 19:23
Discharge Summary
Discharge Data
Date of Admission: 10/23/23
Date of Discharge: 10/26/23
-
Pending Results: No
Hospital Course
Discharging Physician : Dr. Charlie Chowdhury, Dr. Isaiah Posada
Disposition : Home
Primary care physician : Preeti Markham DO
Principal Discharge diagnosis : Circulatory Shock secondary to volume loss, high anion gap metabolic acidosis, hyperglycemia, uncontrolled Type II Diabetes Mellitus, small bowel obstruction vs. adynamic ileus, acute renal failure
Chronic Discharge diagnosis : Hypertension, schizoaffective disorder, Bipolar disorder
Hospital Course :
Dayo Robins presented to the [facility] Emergency Department on 10/23/2023 with symptoms of nausea and vomiting for the past 24 hours. He was recently discharged from after treatment for DKA, after which he was sent on a new oral
antihyperglycemic regimen of Januvia, Glimepiride, and Metformin. He was given 10U of long acting insulin in the ED for possible HHNK vs DKA and was also given 2 liters of normal saline bolus. The patient's abdomen was felt to be distended and a an
Xray of the abdomen revealed a gas patter suggestive of small bowel obstruction. Urinalysis was also suggestive of possible infection. The patient was hypotensive on admission. Considering his hypotension, tachycardia, tachypnea and suspicious
urinalysis, blood cultures were drawn & empiric antibiotics were started for suspected sepsis. Blood tests revealed an elevated creatinine from baseline, suggestive of acute renal failure. Another 1L bolus of IV fluids was given and the patient was
admitted to ICU for insulin drip and pressors were ordered to maintain appropriate systolic blood pressures. All of his antihyperglycemic oral medications were held, along with his blood pressure medications.
Hospital day 1 (10/23):
The patient required Levophed overnight to maintain adequate blood pressures. His symptoms, blood glucose levels, and aberrant electrolyte/kidney function tests quickly improved on insulin drip & IV fluids. He was transitioned off the insulin drip
to subcutaneous insulin, meal time insulin, and moderate dose insulin siding scale. He was kept on pressors until his blood pressors stabilized, after which time he was taken off. The discussion of having the patient manage his insulin at home was
revisited with his brother at bedside, and with communication from the diabetic management team. It was decided that due to intolerance of the oral medication, it would be best to invest time and effort into teaching the patient how to administer
insulin, and to have a VN service assist in its administration. Due to improving clinical picture, empiric antibiotics were stopped and the patient was downgraded from ICU.
Hospital Day 2-3 (10/24 - 10/25):
The next day Dayo had minimal symptoms, save for some lightheadedness and dizziness when standing. He was found to be orthostatic and extra fluids were given. The case folder spoke with the patient's brother (who helps care for him) and plans
were made for follow up appointments and assistance in the home. On the morning of hospital day 3, the patient was stable, without orthostasis, asymptomatic, and eager to return home.
He was discharged home in the late morning on 10/25. New prescriptions for Lantus 15U (to be taken at bedtime) and 5U Humalog (to be taken with meals) were sent to the patients pharmacy for pickup. Metformin, Glimepiride, and Januvia were
discontinued.
Important imaging findings :
CR Obstruct Series W/pa Chest:
Small bowel obstruction with dilated gas-filled loops of small bowel measuring up to [address]/pel (oral contrast only):
No acute abnormalities in the abdomen or pelvis.
Specifically, there is no bowel dilatation to suggest bowel obstruction
Hepatomegaly with diffuse fatty infiltration of the liver
CR Chest Portable - 1 View:
No active cardiopulmonary disease.
Procedure findings :
N/A
Discharge Plan
-
Patient Disposition: Home with Home Care
Discharge Diagnosis/Procedures: Acute Renal Failure, Hyperglycemia, Hypotension
Condition: Good
Diet: Diabetic, Carb Controlled
Additional Diets: See handouts for foods to avoid
Activity: No restrictions
Driving Restrictions: As prior to admission
Bathing Restrictions: None
Activity Restrictions/Additional Instructions:
Monitor home blood sugars with meals and in the evening. Write doen the numbers in a book and take them with you to your doctors appointments
Instructions: Carb counting for adults with diabetes, Diabetes and diet
Referrals:
Keren Willson MD [Consulting Staff] - in one to two weeks
Preeti Markham DO [Family Provider] - in less than 1 week
Prescriptions:
New
insulin glargine-lixisenatide 100 unit-33 mcg/mL insulin pen
15 unit SC QHS 30 Days Qty: 4.5 2RF
Rx Instructions:
Inject 15U subcutaneously at bedtime
insulin lispro [Humalog KwikPen Insulin] 100 unit/mL insulin pen
5 unit SC TID 30 Days Qty: 4.5 2RF
Rx Instructions:
Inject 5 units, subcutaneously, with breakfast, lunch and dinner
Continued
trihexyphenidyl 5 mg tablet
5 mg PO NOON PRN (Reason: restlessness)
perphenazine 8 mg tablet
16 mg PO DAILY
hydroxyzine pamoate 25 mg capsule
25 mg PO DAILY
multivitamin Tablet
1 tab PO DAILY
ascorbic acid (vitamin C) [Vitamin C] 500 mg Tablet
1,000 mg PO DAILY
trihexyphenidyl 5 mg Tablet
5 mg PO DAILY
fenofibrate nanocrystallized 48 mg Tablet
48 mg PO DAILY 30 Days Qty: 30 0RF
atorvastatin 40 mg tablet
40 mg PO HS
Held
lisinopril 40 mg tablet
40 mg PO DAILY
Hold Instructions: Hypotension
hydrochlorothiazide 12.5 mg tablet
12.5 mg PO DAILY
Hold Instructions: Hypotension
Discontinued
glimepiride 2 mg Tablet
4 mg PO BID@0800,1630 30 Days Qty: 120 0RF
metformin 1,000 mg Tablet
1,000 mg PO BID@0800,1700 30 Days Qty: 60 0RF
Januvia 100 mg Tablet
100 mg PO DAILY 30 Days Qty: 30 0RF
Discharge Orders:
Discharge Patient (As Directed); Ordered 10/26/23
Ordered By: Charlie Chowdhury
Discharge Date and Time
Discharge Date/Time: 10/26/23 16:15
Print Language: NIUEAN

Documented by User: Isaiah Posada DO 10/26/23 19:27
Discharge Summary
Discharge Data
Date of Admission: 10/23/23
Date of Discharge: 10/26/23
Discharge Plan
-
Patient Disposition: Home with Home Care
Discharge Diagnosis/Procedures: Acute Renal Failure, Hyperglycemia, Hypotension
Condition: Good
Diet: Diabetic, Carb Controlled
Additional Diets: See handouts for foods to avoid
Activity: No restrictions
Driving Restrictions: As prior to admission
Bathing Restrictions: None
Activity Restrictions/Additional Instructions:
Monitor home blood sugars with meals and in the evening. Write doen the numbers in a book and take them with you to your doctors appointments
Instructions: Carb counting for adults with diabetes, Diabetes and diet
Referrals:
Keren Willson MD [Consulting Staff] - in one to two weeks
Preeti Markham DO [Family Provider] - in less than 1 week
Prescriptions:
New
insulin glargine-lixisenatide 100 unit-33 mcg/mL insulin pen
15 unit SC QHS 30 Days Qty: 4.5 2RF
Rx Instructions:
Inject 15U subcutaneously at bedtime
insulin lispro [Humalog KwikPen Insulin] 100 unit/mL insulin pen
5 unit SC TID 30 Days Qty: 4.5 2RF
Rx Instructions:
Inject 5 units, subcutaneously, with breakfast, lunch and dinner
Continued
trihexyphenidyl 5 mg tablet
5 mg PO NOON PRN (Reason: restlessness)
perphenazine 8 mg tablet
16 mg PO DAILY
hydroxyzine pamoate 25 mg capsule
25 mg PO DAILY
multivitamin Tablet
1 tab PO DAILY
ascorbic acid (vitamin C) [Vitamin C] 500 mg Tablet
1,000 mg PO DAILY
trihexyphenidyl 5 mg Tablet
5 mg PO DAILY
fenofibrate nanocrystallized 48 mg Tablet
48 mg PO DAILY 30 Days Qty: 30 0RF
atorvastatin 40 mg tablet
40 mg PO HS
Held
lisinopril 40 mg tablet
40 mg PO DAILY
Hold Instructions: Hypotension
hydrochlorothiazide 12.5 mg tablet
12.5 mg PO DAILY
Hold Instructions: Hypotension
Discontinued
glimepiride 2 mg Tablet
4 mg PO BID@0800,1630 30 Days Qty: 120 0RF
metformin 1,000 mg Tablet
1,000 mg PO BID@0800,1700 30 Days Qty: 60 0RF
Januvia 100 mg Tablet
100 mg PO DAILY 30 Days Qty: 30 0RF
Discharge Orders:
Discharge Patient (As Directed); Ordered 10/26/23
Ordered By: Charlie Chowdhury
Discharge Date and Time
Discharge Date/Time: 10/26/23 16:15
Print Language: NIUEAN
--- NOTE | 2023-10-26 11:04 | W.PN.HOSP.TC ---
Addendum entered and electronically signed by Isaiah Posada DO 10/27/23 14:05:
CDI clarification: Hypovolemic shock in the context of HHNK/DKA and fluid loss. Did not respond to initial IV fluid boluses drips, required short course of vasopressor on night of admission. Was transitioned off of vasopressors, had residual
orthostasis from hypovolemia which corrected with IV fluids
Addendum entered and electronically signed by Charlie Chowdhury MD, Resident 10/26/23 17:28:
Patient developed circulatory shock with MAP of 44, lack of response to NS bolus, and need of pressors to maintain systolic BP/appropriate MAP.
Original Note:
Today's Communication/Plan
-
Discharge on new insulin 15U long acting, 5U AC. Stop all oral antiglycemic agents, holding BP meds pending followup with PCP for orthostatic vs.
Assessment / Plan
Assessment / Plan
58 year old male with a past medical history of poorly controlled Type II DM, hypertension, schizoaffective/bipolar disorder who presented to the ED with complaint of severe vomiting
Brother Hima (contact): [phone]
#Symptomatic Hypotension (resolved)
- RR >20, HR >90, SBP <90 mmHg.
- Blood C/x drawn; results negative at 24hr
- D/c IV Vanoc/Cefepime
- UA (+) as above; Urine C/x (-)
- Required Levophed to maintain pressures in the evening of 10/22 but by the morning of 10/23 he was weaned off and has been normotensive
- Orthostatic (+) on 10/24, given NS bolus and checked again in the AM. Orthostatic (-) today.
- Hold BP meds on discharge
#High Anion Gap Metabolic Acidosis (resolved)
#Hyperglycemia (resolved)
- BG 499, pH 7.27, HCO3 17.9, B-Hydroxybutarate 0.42, Anion gap 23, UA (-) for ketones, K 4.6
- Anion gap today has closed, Glucose has stabilized.
- See below for SC Insulin transition
#T2DM, uncontrolled
- holding diabetes medication. Off insulin drip & transitioned to SC as outlined below
- C/w atorvastatin
- Begin with 15U Lantus SC QHS, 5U Novolog AC and a LDISS
- 1800 Calorie Diabetic Diet
- Plan for discharge with new insulin regimen (as above). Diabetic nursing instructions for administration of insulin with VN follow up until patient is confident with self-administration.
- Stop all oral antiglycemic agents on discharge.
#Small Bowel Obstruction vs. Adynamic Ileus secondary to Diabetes (resolved)
- Last BM was one day ago
- CXR (+) for dilated loops of small bowel w/ nondilated colon, suggesting SBO
- CT Abd w/ oral contrast - no bowel dilatation to suggest bowel obstruction
- Dr. Monsivais; no surgical intervention indicated at this time
- Had BM yesterday, will give probiotic in lieu of recent IV Abx course
#ROSE MARIE, likely pre-renal (resolved)
- Curam Developer. 3.1, from baseline of <1. Curam Developer is stable
- Held nephrotoxic agents
- Patient stable today, Curam Developer. 0.7
#Hypertension
- Holding Hydrochlorothiazide & Lisinopril given ROSE MARIE
- Hypotensive on admission; will monitor BP
- Holding antihypertensives on discharge; follow up with PCP in <1 week for BP check before restarting
#Schizoaffective Disorder/Bipolar
- C/w home psych medication Perphenazine & trihexyphenidyl
- Follow up post discharge
Dispo:
Med/Surge, pending discharge
Diet: 1800 calorie Diabetic Diet
DVT PPx: Heparin 5000 Q8 SC
Code Status: Full Code
Anticipated Discharge: Today
Subjective/Interval History
-
No acute overnight events. No longer experiencing lightheadedness/dizziness on ambulation. No new sx of Nausea/vomiting/diarrhea.
Objective Data
-
Labs:
Laboratory Results
10/26/23
07:59
WBC 8.2
Hgb 14.6
Hct 41.7
Plt Count 186
Sodium 137
Potassium 4.6
Chloride 102
Carbon Dioxide 26
BUN 10
Creatinine 0.7
Glucose 199 H
Calcium 9.4
Vital Signs:
Vital Signs
Temp Pulse Resp BP Pulse Ox
98 F 89 22 144/92 96
10/26/23 07:04 10/26/23 07:04 10/26/23 07:04 10/26/23 07:04 10/26/23 08:10
I&O
10/25/23 10/26/23 10/27/23
06:59 06:59 06:59
Intake Total 1551 / 1551 4045 / 4045
Output Total 1250 / 1250 2150 / 2150
Balance 301 / 301 1895 / 1895
Review of Systems
-
History Source: Patient
All other systems: Reviewed and negative
Constitutional: Reports No Symptoms
EENT: Reports No Symptoms Reported
Respiratory: Reports No Symptoms
Cardiac: Reports No Symptoms
Abdomen/GI: Reports No Symptoms
Breast: Reports N/A
Genitourinary: Reports No Symptoms
Musculoskeletal: Reports No Symptoms
Skin: Reports No Symptoms
Neuro: Reports No Symptoms
Endocrine: Reports No Symptoms
Physical Exam
-
General: Well Developed, Well Nourished, No Apparent Distress and Morbidly Obese
HEENT: Normocephalic, Atraumatic, Moist Mucous Membranes, Anicteric, [place] Conjunctivae and PERRLA
Respiratory: Clear to Auscultation
Cardiac: Regular Rhythm and S1/S2
Breast: N/A
GI: Soft, Nontender, Normal Bowel Sounds and Distended ([place])
Genito-urinary: No Costovertebral Tender
Musculoskeletal: No Clubbing, No Cyanosis and No Edema
Neuro: Awake, Alert, Oriented, Nonfocal/Grossly Intact and No Sensory Deficits
[2023-10-26 11:28] VITALS: BP 140/89
[2023-10-26 11:49] LABS: Glucose - Point of Care 182 mg/dl (70-99)
--- NOTE | 2023-10-26 13:47 | PTCARENOTE ---
Received patient this am AAOx3. Reviewed importance of glucose monitoring and insulin management with patient. Pt demonstrated insulin administration with cues from RN. Pt will have visiting nurses following him at home. Tolerated diet. OOB to
chair an tolerated well. IVF capped. Pt for discharge today. Made patient comfortable. Cont to assess patient status.
--- NOTE | 2023-10-26 14:52 | PN.CDI ---
CDI
- -
CDI:
Physician Documentation Request
Admit Date: 10/23/23 15:15
Dear Doctor Luciana,
Clinical Indicators:
The diagnosis of hypovolemic shock was documented on 10/23, but is not consistently noted in subsequent documentation.
10/23 PN, '...differentials at this time of hypovolemic > septic shock.'
10/24 PN, 'blood pressure soft relative to his previous readings...starting IV fluids for now, suspect residual hypovolemia..... Symptomatic Hypotension...Required Levophed to maintain pressures in the evening of 10/22 ..'
Levophed requirements: 3-5 mcg/min (10/22 1600- 10/23 05:28)
MAP trend on admission:
10/23/23
11:31 10/23/23
11:34 10/23/23
12:30
MAP (cuff-Loi Monitor) 58 44 52
10/23/23
15:00 10/23/23
15:45 10/23/23
17:30
MAP (cuff-Loi Monitor) 55 53 53
Please clarify the following:
Hypovolemic shock was present on admission and is now resolved.
Hypovolemic shock was ruled out.
Hypovolemic shock is still a likely, suspected, probable diagnosis
Other
Use of terms such as suspected, likely, concern for, or probable (associated with a specific diagnosis that is being evaluated, monitored, or treated as if it exists) are acceptable and can be coded in the inpatient setting, when documented at the
time of discharge.
Thank you,
Alena Awan RN BSN
CDI Specialist
available via tiger text
Please use your independent medical judgment in providing your response.
== END 2023-10-26 16:15 | disposition home health service (06) | DRG 637 ==
LOC: 4 EAST ACU 15:15
PROVIDERS: Internal Medicine Critical Care Medicine; Nurse Practitioner Family; ADMITTING PHYSICIAN Internal Medicine; EMERGENCY PHYSICIAN Emergency Medicine; FAMILY PHYSICIAN Family Medicine; OTHER PHYSICIAN Internal Medicine Critical Care Medicine
DX: E11.10 Type 2 diabetes mellitus with ketoacidosis without coma (principal); A41.9 Sepsis, unspecified organism; R57.1 Hypovolemic shock; N17.9 Acute kidney failure, unspecified; Z68.42 Body mass index [BMI] 45.0-49.9, adult; I95.9 Hypotension, unspecified; I10 Essential (primary) hypertension; Z87.891 Personal history of nicotine dependence; F25.9 Schizoaffective disorder, unspecified; E66.01 Morbid (severe) obesity due to excess calories
CPT/HCPCS: 71045; 74022; 74176; 80048; 80053; 80202; 81003; 81015; 82010; 82805; 82962; 83605; 83735; 84100; 85025; 85027; 85610; 85730; 87040; 87086; 93005; 96361; 96374; 96375; 99285

== ENCOUNTER 2023-12-29 16:08 | Emergency (ER) | payer MEDICARE, SELFPAY ==
[2023-12-29 16:12] VITALS: BP 171/105
[2023-12-29 17:31] LABS: Glucose - Point of Care 272 mg/dl (70-99)
--- NOTE | 2023-12-29 17:51 | ED.SKININJ ---
HPI-Injury
General
Chief Complaint: Skin Problem
Source: patient
Exam Limitations: none
Time Seen by Provider: 12/29/23 17:51
Nursing documentation reviewed up to this point in time: agreed with
History of Present Illness-Injury
Initial Injury comments:
58-year-old male with history of HTN, bipolar, schizophrenia, bilateral knee replacement presents stating ever since his right knee was replaced 10 in May of this year he has had intermittent swelling and redness of the right lower leg. 2 months
ago he was put on an antibiotic which he took and said the redness in his right lower leg was starting to improve. He states he has no pain but the right lower leg is a little more swollen than usual and it is getting red again and the redness is
spreading. He recently noted mild redness around the ankle and lower aspect of the left lower leg.
He called his PCP at [facility] and has a follow-up appointment in 4 days but she recommended he have an ultrasound prior to that.
He denies chest pain or shortness of breath. He denies fever or chills.
Past History
Past History
ED Past Medical History: HTN, NIDDM and Psychiatric
ED Past Surgical History: Orthopedic (Bilateral knee replacement, ) and Other (Inguinal herniorrhaphy)
Social History
Tobacco: Former smoker
Alcohol: None
Drug: None
Personal:
Living: alone
Employment: Disabled
Family History
Family History: Other (Noncontributory)
Review of Systems
Review of Systems
Allergies reviewed?: Yes
All Other Systems: ROS reviewed and negative except as documented in HPI and ROS
Constitutional: Denies fever or chills
Respiratory: Denies trouble breathing
Cardiac: Denies chest pain
ABD/GI: Denies abdominal pain or nausea
: Denies dysuria or difficulty voiding
Musculoskeletal: Reports edema (bilateral LE swelling)
Skin: Reports other (redness bilateral LE R>L)
Neurological: Denies weakness or numbness
Phy Exam
Physical Exam
Physical Exam:
GENERAL: No acute distress. A&Ox3.
CONSTITUTIONAL: Afebrile.
RESPIRATORY: Regular respirations, nonlabored, lungs clear.
CARDIOVASCULAR: Regular rate and rhythm, no murmurs, no rubs.
GI: Soft, nontender, normal BS
MUSCULOSKELETAL: +1 bilateral lower extremity edema, mild to moderate erythema from right mid ayng to foot, very mild erythema LLE, moves with ease. Well perfused.
SKIN: Warm, dry, pink
PSYCH: Normal mood and affect. Well kept, interactive and appropriate
NEUROLOGIC: Awake, alert and oriented. No focal neurological deficits
Course
Orders/Labs/Results
Orders:
Orders
12/29/23 17:43
US Periph Venous LOWER Ext Bill Urgent
Comment:
Reason For Exam: swelling, redness
Abnormal Lab Results
12/29/23
17:29
POC Glucose 272 H mg/dl
(70-99)
Vital Signs
Initial and Last Documented VS:
Initial Vital Signs
Temp Pulse Resp BP Pulse Ox
99.2 F 102 16 171/105 97
12/29/23 16:12 12/29/23 16:12 12/29/23 16:12 12/29/23 16:12 12/29/23 16:12
Last Documented Vital Signs
Temp Pulse Resp BP Pulse Ox
99.2 F 78 18 147/90 98
12/29/23 16:12 12/29/23 18:51 12/29/23 18:51 12/29/23 18:51 12/29/23 18:51
MDM/Problems Addressed
Differential Diagnosis Includes:
DVT, Cellulitis
MDM/Problems Addressed:
58-year-old male with history of HTN, bipolar, schizophrenia, bilateral knee replacement presents stating ever since his right knee was replaced 10 in May of this year he has had intermittent swelling and redness of the right lower leg. 2 months
ago he was put on an antibiotic which he took and said the redness in his right lower leg was starting to improve. He states he has no pain but the right lower leg is a little more swollen than usual and it is getting red again and the redness is
spreading. He recently noted mild redness around the ankle and lower aspect of the left lower leg.
He called his PCP at [facility] and has a follow-up appointment in 4 days but she recommended he have an ultrasound prior to that.
He denies chest pain or shortness of breath. He denies fever or chills.
Afebrile, NAD
Legs mildly swollen, mildly erythematous, no significant infection noted.
7:00 PM:
Ultrasound negative for DVT
Rx for doxycycline sent to his pharmacy
He will follow-up with his PCP in 4 days as scheduled
*Critical Care Note
Total Time (30-74mins, 75-104mins- exclusive of procedures): Not Applicable
ED Attending Note
-
Portions of this chart may have been created with voice recognition software.� Occasional wrong word or��sound alike� substitutions may have occurred due to the inherent limitations of voice recognition software.
Discharge Plan
Departure
Patient Disposition: Home (Routine Discharge)
Date of Disposition: 12/29/23
Time of Disposition: 18:58
Patient with high blood pressure during this ER visit?: No
Condition: Good
Discharge Problem:
Cellulitis
Instructions: Cellulitis (Skin Infection), Adult (DC)
Prescriptions:
New
doxycycline hyclate 100 mg capsule
100 mg PO BID Qty: 20 0RF
No Action
trihexyphenidyl 5 mg tablet
5 mg PO NOON PRN (Reason: restlessness)
perphenazine 8 mg tablet
16 mg PO DAILY
hydroxyzine pamoate 25 mg capsule
25 mg PO DAILY
multivitamin Tablet
1 tab PO DAILY
ascorbic acid (vitamin C) [Vitamin C] 500 mg Tablet
1,000 mg PO DAILY
lisinopril 40 mg tablet
40 mg PO DAILY
hydrochlorothiazide 12.5 mg tablet
12.5 mg PO DAILY
trihexyphenidyl 5 mg Tablet
5 mg PO DAILY
fenofibrate nanocrystallized 48 mg Tablet
48 mg PO DAILY 30 Days Qty: 30 0RF
atorvastatin 40 mg tablet
40 mg PO HS
insulin glargine-lixisenatide 100 unit-33 mcg/mL insulin pen
15 unit SC QHS 30 Days Qty: 4.5 2RF
Rx Instructions:
Inject 15U subcutaneously at bedtime
insulin lispro [Humalog KwikPen Insulin] 100 unit/mL insulin pen
5 unit SC TID 30 Days Qty: 4.5 2RF
Rx Instructions:
Inject 5 units, subcutaneously, with breakfast, lunch and dinner
Referrals:
Preeti Markham, DO [Primary Care Provider] - Keep scheduled appt
Activity Restrictions/Additional Instructions:
As we discussed, your ultrasounds are negative for blood clots.
Follow-up with your family doctor as scheduled in 4 days.
I sent a prescription to your [facility] for doxycycline 100 mg to take twice a day for 10 days for cellulitis
Interventions
Interventions:
*Risk Screen - Suicide Last Done: 12/29/23 16:13
*General Assessment Last Done: 12/29/23 19:08
*Neglect/Abuse Screening Last Done: 12/29/23 16:13
ED- Fall Risk Assessment Last Done: 12/29/23 19:08
*ED COVID-19 Vaccine History Last Done: 12/29/23 16:13
*Nursing Disposition Last Done: 12/29/23 19:08
ED-Skin Assessment Last Done: 12/29/23 19:09
Discharge Date and Time
Discharge Date/Time: 12/29/23 19:09
Print Language: MACEDONIAN
[2023-12-29 18:51] VITALS: BP 147/90
== END 2023-12-29 19:09 | disposition home or self-care (01) ==
LOC: EMR 16:08
PROVIDERS: EMERGENCY PHYSICIAN Emergency Medicine; PRIMARYCARE PHYSICIAN Family Medicine
DX: L03.115 Cellulitis of right lower limb (principal); Z87.891 Personal history of nicotine dependence; I10 Essential (primary) hypertension; F31.9 Bipolar disorder, unspecified; F20.9 Schizophrenia, unspecified; Z96.653 Presence of artificial knee joint, bilateral
CPT/HCPCS: 99284; 82962; 93970

== ENCOUNTER → 2024-04-05 06:26 | Outpatient (REF) | payer MEDICARE, SELFPAY | LOC: RAD 06:26 | PROVIDERS: ATTENDING PHYSICIAN Surgery Vascular Surgery; FAMILY PHYSICIAN Family Medicine | DX: I87.2 Venous insufficiency (chronic) (peripheral) (principal); R60.0 Localized edema | CPT/HCPCS: 36415; 93922; 93925; 93970 ==

== ENCOUNTER 2024-08-01 10:55 | Outpatient (RCR) | payer MEDICARE, SELFPAY | END 2024-08-01 23:59 | disposition home or self-care (01) | LOC: RPT 10:55 | PROVIDERS: ATTENDING PHYSICIAN Nurse Practitioner Adult Health; FAMILY PHYSICIAN Family Medicine | DX: M25.562 Pain in left knee (principal); M25.561 Pain in right knee; R26.89 Other abnormalities of gait and mobility; Z73.6 Limitation of activities due to disability; M62.81 Muscle weakness (generalized); E11.9 Type 2 diabetes mellitus without complications; Z96.653 Presence of artificial knee joint, bilateral | CPT/HCPCS: 97110; 97162; 97535 ==